=== PATIENT | male | born 1955 | race Caucasian/White ===

== ENCOUNTER 2022-01-07 10:02 | Outpatient (CLI) | payer MEDICARE, SELFPAY ==
[2022-01-07 10:30] LABS: Abs Immature Grans 0.01 10^3/uL (0.0-0.06); Absolute Basophil Count 0.02 10^3/uL (0.0-0.2); Absolute Eosinophil Count 0.04 10^3/uL (0.0-0.7); Absolute Lymphocyte Count 0.75 10^3/uL (1.2-3.4); Absolute Monocyte Count 0.64 10^3/uL (0.1-0.8); Absolute Neutrophil Count 2.28 10^3/uL (1.2-6.7); Basophils % 0.5; Eosinophils % 1.1; HCT 34.2 % (40.0-50.0); HGB 11.7 g/dL (13.5-17.5); Immature Grans % 0.3; Lymphocytes % 20.1; MCH 31.6 pg (27.0-33.0); MCHC 34.2 % (32.0-36.0); MCV 92 fL (80-95); MPV 9.7 fL (8.0-11.0); Monocytes % 17.1; Neutrophils % 60.9; Platelet Count 239 10^3/uL (130-400); RDW 14.4 % (11.8-14.1); RDW-SD 48.3 fL; WBC 3.74 10^3/uL (4.4-10.8)
[2022-01-07 10:45] LABS: ALT 45 U/L (16-63); AST 48 U/L (15-37); Albumin 3.2 g/dL (3.4-5.0); Alkaline Phosphatase 95 U/L (46-116); Anion Gap 7.9 mmol/L (3-11); BUN 13 mg/dL (7-18); Bilirubin, Total 0.7 mg/dL (0.2-1.0); CO2 32.1 mmol/L (21.0-32.0); CREATININE 0.8 mg/dL (0.70-1.30); Calcium 8.8 mg/dL (8.5-10.1); Chloride 96 mmol/L (98-107); FREE T4 1.91 ng/dL (0.76-1.46); Glucose 154 mg/dL (74-106); Magnesium 2.1 mg/dL (1.8-2.4); Sodium 136 mmol/L (136-145); TSH 1.09 uIU/mL (0.36-3.74); Total Protein 7.2 g/dL (6.4-8.2)
[2022-01-07 11:03] LABS: Potassium 2.8 mmol/L (3.5-5.1)
== END 2022-01-07 10:03 | disposition home or self-care (01) ==
LOC: LBO 10:03
PROVIDERS: PCP Physician Assistant Medical; Visit Provider Internal Medicine Medical Oncology
DX: C34.11 Malignant neoplasm of upper lobe, right bronchus or lung (principal); C79.31 Secondary malignant neoplasm of brain; C78.7 Secondary malignant neoplasm of liver and intrahepatic bile duct; Z79.899 Other long term (current) drug therapy
CPT/HCPCS: 36415; 80053; 83735; 84439; 84443; 85025

== ENCOUNTER 2022-01-09 09:15 | Outpatient (REF) | payer MEDICARE, SELFPAY ==
[2022-01-09 09:49] LABS: ALT 44 U/L (16-63); AST 33 U/L (15-37); Albumin 2.7 g/dL (3.4-5.0); Alkaline Phosphatase 86 U/L (46-116); Anion Gap 3.4 mmol/L (3-11); BUN 18 mg/dL (7-18); Bilirubin, Total 0.2 mg/dL (0.2-1.0); CO2 32.6 mmol/L (21.0-32.0); CREATININE 0.5 mg/dL (0.70-1.30); Calcium 8.7 mg/dL (8.5-10.1); Chloride 105 mmol/L (98-107); Glucose 84 mg/dL (74-106); Potassium 3.9 mmol/L (3.5-5.1); Sodium 141 mmol/L (136-145); Total Protein 6.1 g/dL (6.4-8.2)
== END 2022-01-09 09:16 | disposition home or self-care (01) ==
LOC: LBN 09:15
PROVIDERS: PCP Physician Assistant Medical; Visit Provider Internal Medicine Medical Oncology
DX: C34.11 Malignant neoplasm of upper lobe, right bronchus or lung (principal)
CPT/HCPCS: 80053

== ENCOUNTER 2022-01-28 09:45 | Outpatient (REF) | payer MEDICARE, SELFPAY ==
[2022-01-28 09:52] LABS: Abs Immature Grans 0.03 10^3/uL (0.0-0.06); Absolute Basophil Count 0.04 10^3/uL (0.0-0.2); Absolute Eosinophil Count 0.04 10^3/uL (0.0-0.7); Absolute Monocyte Count 0.53 10^3/uL (0.1-0.8); Basophils % 0.9; Eosinophils % 0.9; HGB 10.1 g/dL (13.5-17.5); Immature Grans % 0.7; Lymphocytes % 21.1; MCH 30.8 pg (27.0-33.0); MCHC 32.6 % (32.0-36.0); MCV 95 fL (80-95); MPV 10.6 fL (8.0-11.0); Monocytes % 12.4; Platelet Count 248 10^3/uL (130-400); RBC 3.28 10^6/uL (4.36-5.78); RDW 15.5 % (11.8-14.1); RDW-SD 53.4 fL; WBC 4.26 10^3/uL (4.4-10.8)
[2022-01-28 09:53] LABS: Absolute Neutrophil Count 2.73 10^3/uL (1.2-6.7)
[2022-01-28 10:20] LABS: ALT 43 U/L (16-63); AST 44 U/L (15-37); Alkaline Phosphatase 111 U/L (46-116); Anion Gap 4.5 mmol/L (3-11); BUN 17 mg/dL (7-18); Bilirubin, Total 0.5 mg/dL (0.2-1.0); CO2 36.5 mmol/L (21.0-32.0); CREATININE 0.7 mg/dL (0.70-1.30); Calcium 8.7 mg/dL (8.5-10.1); Chloride 100 mmol/L (98-107); Estimated GFR 100.99 (mL/min/1.73m2); Glucose 147 mg/dL (74-106); Potassium 3.1 mmol/L (3.5-5.1); Sodium 141 mmol/L (136-145); TSH 0.29 uIU/mL (0.36-3.74); Total Protein 6.4 g/dL (6.4-8.2)
== END 2022-01-28 09:46 | disposition home or self-care (01) ==
LOC: LBN 09:45
PROVIDERS: Internal Medicine Medical Oncology; PCP Physician Assistant Medical; Visit Provider Surgery
DX: C34.11 Malignant neoplasm of upper lobe, right bronchus or lung (principal); C79.31 Secondary malignant neoplasm of brain; C78.7 Secondary malignant neoplasm of liver and intrahepatic bile duct; Z79.899 Other long term (current) drug therapy
CPT/HCPCS: 80053; 84439; 84443; 85025

== ENCOUNTER 2022-02-15 02:10 | Outpatient (CLI) | payer MEDICARE, SELFPAY ==
[2022-02-15 14:38] LABS: Absolute Basophil Count 0.04 10^3/uL (0.0-0.2); Absolute Eosinophil Count 0.09 10^3/uL (0.0-0.7); Absolute Monocyte Count 0.59 10^3/uL (0.1-0.8); Absolute Neutrophil Count 0.91 10^3/uL (1.2-6.7); Basophils % 1.4; Eosinophils % 3.2; HCT 34.7 % (40.0-50.0); HGB 11.3 g/dL (13.5-17.5); Lymphocytes % 42.4; MCH 31.4 pg (27.0-33.0); MCHC 32.6 % (32.0-36.0); MCV 96 fL (80-95); Monocytes % 20.8; Neutrophils % 32.2; Platelet Count 189 10^3/uL (130-400); RDW 16.8 % (11.8-14.1); RDW-SD 58.2 fL; WBC 2.83 10^3/uL (4.4-10.8)
[2022-02-15 14:55] LABS: Diff Comment Diff Reviewed; RBC Morphology Normal
[2022-02-15 15:55] LABS: ALT 40 U/L (16-63); AST 40 U/L (15-37); Albumin 3.3 g/dL (3.4-5.0); Alkaline Phosphatase 114 U/L (46-116); Bilirubin, Total 0.4 mg/dL (0.2-1.0); CREATININE 0.7 mg/dL (0.70-1.30); Calcium 9.5 mg/dL (8.5-10.1); Chloride 102 mmol/L (98-107); Estimated GFR 100.99 (mL/min/1.73m2); FREE T4 1.26 ng/dL (0.76-1.46); Glucose 133 mg/dL (74-106); Magnesium 2.2 mg/dL (1.8-2.4); Potassium 4.2 mmol/L (3.5-5.1); Sodium 139 mmol/L (136-145); TSH 0.32 uIU/mL (0.36-3.74)
[2022-02-15 17:27] LABS: BUN 15 mg/dL (7-18)
== END 2022-02-15 02:11 | disposition home or self-care (01) ==
LOC: LBO 02:10
PROVIDERS: PCP Physician Assistant Medical; Visit Provider Internal Medicine Medical Oncology
DX: Z79.899 Other long term (current) drug therapy (principal); C34.11 Malignant neoplasm of upper lobe, right bronchus or lung
CPT/HCPCS: 36415; 80053; 83735; 84439; 84443; 85025

== ENCOUNTER 2022-02-18 10:33 | Outpatient (CLI) | payer MEDICARE, SELFPAY ==
[2022-02-18 08:58] LABS: Abs Immature Grans 0.02 10^3/uL (0.0-0.06); Absolute Basophil Count 0.03 10^3/uL (0.0-0.2); Absolute Eosinophil Count 0.09 10^3/uL (0.0-0.7); Absolute Lymphocyte Count 0.93 10^3/uL (1.2-3.4); Absolute Monocyte Count 0.63 10^3/uL (0.1-0.8); Absolute Neutrophil Count 1.59 10^3/uL (1.2-6.7); Basophils % 0.9; Eosinophils % 2.7; HCT 35.1 % (40.0-50.0); HGB 11.1 g/dL (13.5-17.5); Immature Grans % 0.6; Lymphocytes % 28.3; MCHC 31.6 % (32.0-36.0); MCV 98 fL (80-95); MPV 10.7 fL (8.0-11.0); Monocytes % 19.1; Neutrophils % 48.4; Platelet Count 180 10^3/uL (130-400); RBC 3.58 10^6/uL (4.36-5.78); RDW 17.2 % (11.8-14.1); RDW-SD 60.7 fL; WBC 3.29 10^3/uL (4.4-10.8)
[2022-02-18 09:31] LABS: ALT 43 U/L (16-63); AST 50 U/L (15-37); Albumin 3.6 g/dL (3.4-5.0); Alkaline Phosphatase 107 U/L (46-116); Anion Gap 5.2 mmol/L (3-11); BUN 14 mg/dL (7-18); Bilirubin, Total 0.6 mg/dL (0.2-1.0); CO2 31.8 mmol/L (21.0-32.0); CREATININE 0.8 mg/dL (0.70-1.30); Calcium 9.4 mg/dL (8.5-10.1); Chloride 103 mmol/L (98-107); FREE T4 1.32 ng/dL (0.76-1.46); Glucose 98 mg/dL (74-106); Magnesium 2.4 mg/dL (1.8-2.4); Potassium 3.9 mmol/L (3.5-5.1); Sodium 140 mmol/L (136-145); Total Protein 7.2 g/dL (6.4-8.2)
--- OUTSIDE RECORDS SUMMARY | 2022-02-18 10:38 | XMS_ITS | Encounter Summary ---
:1955 Author Organization [facility] [place] [address] Care Team Providers Name Role Phone Chioma Huynh Primary Care Provider Encounter Details Date Type Department Care Team Description 01/30/2022 Notes Only [facility] OFFICE OF CARE [address] [place], [place] [id number] [phone] Social History Tobacco Use Types Packs/Day Years Used Date Current Every Day Smoker 0.5 Smokeless Tobacco: Never Used Financial Resource Strain Answer Date Recorded How hard is it for you to pay for the very basics like Not v brittney hard 02/08/2022 food, housing, medical care, and heating? Food Insecurity Answer Date Recorded Within the past 12 months, you worried that your food would Never true 02/08/2022 run out before you got money to buy more. Within the past 12 months, the food you bought just didn't N ever true 02/08/2022 last and you didn't have money to get more. Transportation Needs Answer Date Recorded In the past 12 months, has lack of transportation kept you f rom No 02/08/2022 medical appointments or from getting medications? In the past 12 months, has lack of transportation kept you f rom No 02/08/2022 meetings, work, or getting things needed for daily living? Housing Stability Answer Date Recorded In the last 12 months, was there a time when you were not ab le No 02/08/2022 to pay the mortgage or rent on time? In the last 12 months, how many places have you lived? 1 02/08/2022 In the last 12 months, was there a time when you did not hav e a No 02/08/[address] or slept in a half-way (including now)? Sex Assigned at Date Recorded Male 12/12/2021 7:38 PM EDT documented as of this encounter Progress Notes Mercy Nixon MSW - 01/30/2022 11:52 AM EDT Follow up with pt during his infusion visit today. Pt indicated he was doing firly well day to day at home. He has good support. No issues with transportation. He did not identify any new needs. Offered support. Reminded pt of [employer] availability and contact information. Will continue to follow as indicated. Brief assessment Supportive Counseling documented in this encounter Plan of Treatment Upcoming Encounters Date Type Specialty Care Team Description 02/19/2022 Infusion Hematology and Oncology 02/20/2022 Infusion Hematology and Oncology documented as of this encounter Visit Diagnoses Not on filedocumented in this encounter Care Teams Sintering Plant Supervisor Relationship Specialty Start Date End Date Chioma Huynh PA PCP - General 04/10/[address] [place] [id number] documented as of this encounter
--- OUTSIDE RECORDS SUMMARY | 2022-02-18 10:38 | XMS_ITS | Encounter Summary ---
:1955 Author Organization [facility] [address] Care Team Providers Name Role Phone Chioma Huynh Primary Care Provider Encounter Details Date Type Department Care Team Description 02/18/2022 Notes Only [facility] OFFICE OF CARE [address] [place], [place] [id number] [phone] Social History Tobacco Use Types Packs/Day Years Used Date Former Smoker 1 50 Smokeless Tobacco: Never Used Alcohol Use Standard Drinks/Week Comments Not Currently 0 (1 standard drink = 0.6 oz pure alcoho l) Financial Resource Strain Answer Date Recorded How [...] place to sleep or slept in a jail (including now)? Sex Assigned at Date Recorded Male 12/12/2021 7:38 PM EDT documented as of this encounter Progress Notes Mercy Nixon MSW - 02/18/2022 10:05 AM EDT Follow up with Cdoey during his infusion visit today. He indicated he is doing fairly well overall. He is managing day to day at home. He misses work and hopes to return one day. His is working and they are managing their financial obligations. Inquired how is coping an dhe did indicate she is worried about things. Offered support. Codey did not identify any new needs today. Reminded him of REMOTE PILOT OPERATOR availability and contact information. Will continue to follow for support and resources. Brief assessment Supportive Counseling documented in this encounter Plan of Treatment Upcoming Encounters Date Type Specialty Care Team Description 02/19/2022 Infusion Hematology and Oncology 02/20/2022 Infusion Hematology and Oncology documented as of this encounter Visit Diagnoses Not on filedocumented in this encounter Care Teams Senior Energy Market Coordinator Relationship Specialty Start Date End Date Chioma Huynh PA PCP - General 04/10/[address] [place] [id number] documented as of this encounter
--- OUTSIDE RECORDS SUMMARY | 2022-02-18 10:38 | XMS_ITS | Encounter Summary ---
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 Neoplasm related pain Medication management Jem Gannon MD [facility] Hem Onc Office Procedures TC PALONOSETRON HCL, 25MCG, INJECTION (ALOXI) TC FOSAPREPITANT, 1MG, INJECTION (EMEND) TC CARBOPLATIN, 50MG, INJECTION (PARAPLATIN) TC ETOPOSIDE, 10MG, INJECTION (VEPESID) J2469 Aloxi 0.25 MG - NR J1453 EMEND [address] J9022 atezolizumab (Tecentri q) 1200 MG J9045 CARBOplatin (Paraplatin) 353 MG J9181 ETOPOSIDE - VEPESID 130 MG HEMATOLOGY/[place] [phone] Fax: Referral ID Status Reason Start Date Expiration Date Visits V isits Requested Authorized [id number] Authorized 12/17/2021 12/13/2022 99 99 Encounter Details Date Type Department Care Team Description 01/29/2022 Infusion Hematology Oncology at [facility] dication [facility]; [facility] Primary malignant neoplasm o f right upper lobe of lung; [address] Neoplasm related pain; [place], [place] [phone] Secondary malignant neoplasm of liver [phone] Social History Tobacco Use Types Packs/Day Years [...] place to sleep or slept in a [facility] (including now)? Sex Assigned at Date Recorded Male 12/12/2021 7:38 PM EDT documented as of this encounter Last Filed Vital Signs Vital Sign Reading Time Taken Comments Blood Pressure 127/56 01/29/2022 11:23 AM EDT Pulse 71 01/29/2022 11:23 AM EDT Temperature 36.7 ??C (98.1 ??F) 01/29/2022 11:23 AM EDT Respiratory Rate 16 01/29/2022 11:23 AM EDT Oxygen Saturation 100% 01/29/2022 11:23 AM EDT Inhaled Oxygen Concentration - - Weight 54.6 kg (120 lb 6.4 oz) 01/29/2022 11:23 AM EDT Height 172 cm (5' 7.72) 01/29/2022 11:23 AM EDT Body Mass Index 18.46 01/29/2022 11:23 AM EDT documented in this encounter Progress Notes German Barillas RN - 01/29/2022 11:00 AM EDT INFUSION THERAPY ADMINISTRATION NOTES DIAGNOSIS: SCLC CYCLE #3: Day 2 REASON FOR VISIT: Etoposide SUBJECTIVE: Codey offers no complaints today and is ready for treatment. OBJECTIVE: VSS, weight stable LAB DATA: Labs done 01/28/[address] [facility] reviewed and WNL for treatment. IV ACCESS: Left arm PIV Pre administration: Chemotherapy orders independently verified for drug name, route, and dosage per patient's height, weight and BSA by German Barillas RN and Staff Pharmacist(s). REACTIONS (DESCRIPTION, TIME, INTERVENTION AND EFFECTIVENESS) none ASSESSMENT: Codey was awake, alert and tolerated treatment well. PIV flushed with NS and left in place for treatment tomorrow. PLAN: Return to clinic tomorrow for C3D3. 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 1.58 m2 Treatment Plan BSA from Recorded weight), Intravenous, ONCE, 1 dose, On Fri01/29/22 at 1200, Administer over 120 Minutes, Warning Vesicant/Irritant Medication sodium chloride 0.9% infusion New Bag 01/29/2022 11:30 AM EDT 200 mL/hr 200 mL/hr 200 mL/hr, Intravenous, CONTINUOUS, Starting on Fri01/29/22 at 1100, Until Fri01/29/22 at 1626 documented in this encounter Care Teams Automotive Upholsterer Relationship Specialty Start Date End Date Chioma Huynh PA PCP - General 04/10/[address] [place] [id number] documented as of this encounter
--- OUTSIDE RECORDS SUMMARY | 2022-02-18 10:38 | XMS_ITS | Encounter Summary ---
:1955 Author Organization [facility] [place] [address] Care Team Providers Name Role Phone Chioma Huynh Primary Care Provider Encounter Details Date Type Department Care Team Description 02/18/2022 [facility] [address] HEMATOLOGY AND ONCOLOGY [id number] [place] [address] [phone] (Wo rk) Social History Tobacco Use Types Packs/Day Years [...] place to sleep or slept in a prison (including now)? Sex Assigned at Date Recorded Male 12/12/2021 7:38 PM EDT documented as of this encounter Plan of Treatment Upcoming Encounters Date Type Specialty Care Team Description 02/19/2022 Infusion Hematology and Oncology 02/20/2022 Infusion Hematology and Oncology documented as of this encounter Visit Diagnoses Not on filedocumented in this encounter Care Teams Front Desk Associate Relationship Specialty Start Date End Date Chioma Huynh PA PCP - General 04/10/[address] [place] [phone] documented as of this encounter
--- OUTSIDE RECORDS SUMMARY | 2022-02-18 10:38 | XMS_ITS | Encounter Summary ---
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 Neoplasm related pain Medication management Jem Gannon MD [facility] Hem Onc Office Procedures TC PALONOSETRON HCL, 25MCG, INJECTION (ALOXI) TC FOSAPREPITANT, 1MG, INJECTION (EMEND) TC CARBOPLATIN, 50MG, INJECTION (PARAPLATIN) TC ETOPOSIDE, 10MG, INJECTION (VEPESID) J2469 Aloxi 0.25 MG - NR J1453 EMEND [address] J9022 atezolizumab (Tecentri q) 1200 MG J9045 CARBOplatin (Paraplatin) 353 MG J9181 ETOPOSIDE - VEPESID 130 MG HEMATOLOGY/[place] [phone] Fax: Referral ID Status Reason Start Date Expiration Date Visits V isits Requested Authorized [id number] Authorized 12/17/2021 12/13/2022 99 99 Encounter Details Date Type Department Care Team Description 01/30/2022 Infusion Hematology Oncology at [facility] dication management; [facility] Primary malignant neoplasm o f right upper lobe of lung; [address] Neoplasm related pain; [place], [place] [phone] Secondary malignant neoplasm of liver [phone] Social History Tobacco Use Types Packs/Day Years [...] place to sleep or slept in a custodial (including now)? Sex Assigned at Date Recorded Male 12/12/2021 7:38 PM EDT documented as of this encounter Last Filed Vital Signs Vital Sign Reading Time Taken Comments Blood Pressure 126/54 01/30/2022 10:42 AM EDT Pulse 58 01/30/2022 10:42 AM EDT Temperature 36.4 ??C (97.5 ??F) 01/30/2022 10:42 AM EDT Respiratory Rate 20 01/30/2022 10:42 AM EDT Oxygen Saturation 100% 01/30/2022 10:42 AM EDT Inhaled Oxygen Concentration - - Weight 55.9 kg (123 lb 3.2 oz) 01/30/2022 10:42 AM EDT Height 172 cm (5' 7.72) 01/30/2022 10:42 AM EDT Body Mass Index 18.89 01/30/2022 10:42 AM EDT documented in this encounter Progress Notes Olivia White RN - 01/30/2022 11:00 AM EDT INFUSION THERAPY ADMINISTRATION NOTES DIAGNOSIS: SCLC CYCLE #3: Day 3 REASON FOR VISIT: Etoposide SUBJECTIVE: Codey offers no complaints today and is ready for treatment. OBJECTIVE: Patient Vitals for the past 24 hrs: Temp Pulse Resp BP SpO2 01/30/22 1042 36.4 ??C (97.5 ??F) 58 20 126/54 100 % LAB DATA: [facility]/22 at [facility] 4.[facility], HGB 10.1, HCT 31.0,PLT 248, ANC 2.73, BUN 17, Cr 0.7 IV ACCESS: Left arm PIV Pre administration: Chemotherapy orders independently verified for drug name, route, and dosage per patient's height, weight and BSA by Olivia White RN and Staff Pharmacist(s). REACTIONS (DESCRIPTION, TIME, INTERVENTION AND EFFECTIVENESS) none ASSESSMENT: Codey was awake, alert and tolerated treatment well. PLAN: Return to clinic as scheduled. documented in this encounter Plan of Treatment [...] Rate Site dexAMETHasone (Decadron) tablet 10 Given 01/30/2022 10:48 AM EDT 10 mg mg 10 mg, Oral, ONCE, 1 dose, On Fri01/30/22 at 1100, Administer prior to chemotherapy, Routine etoposide (Vepesid) 126.5 mg in New Bag 01/30/2022 10:56 AM ED T 126.5 mg 506.3 mL/hr sodium chloride 0.9% Non-PVC 506.33 mL infusion 126.5 mg (rounded from 126.4 mg = 80 mg/m2/dose ? 1.58 m2 Treatment Plan BSA from Recorded weight), Intravenous, ONCE, 1 dose, On Fri01/30/22 at 1200, Administer over 60 Minutes, Warning Vesicant/Irritant Medication sodium chloride 0.9% infusion New Bag 01/30/2022 10:48 AM EDT 200 mL/hr 200 mL/hr 200 mL/hr, Intravenous, CONTINUOUS, Starting on Fri01/30/22 at 1100, Until Fri01/30/22 at 1420 documented in this encounter Care Teams Database Administrator Relationship Specialty Start Date End Date Chioma Huynh PA PCP - General 04/10/[address] [phone] documented as of this encounter
--- OUTSIDE RECORDS SUMMARY | 2022-02-18 10:38 | XMS_ITS | Encounter Summary ---
:1955 Author Organization [facility] [place] [address] Care Team Providers Name Role Phone Chioma Huynh Primary Care Provider Reason for Visit Consultation (Routine) - Closed Specialty Diagnoses / Procedures Referred By Contact Refer red To Contact Radiation Oncology Diagnoses 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 Brain metastases Jem Gannon MD [facility] Rad Onc Treatment [address] HEMATOLOGY/ONCOLOGY [place], [place] DEPT [address] [place] [address] Referral ID Status Reason Start Date Expiration Date Visits V isits Requested Authorized [id number] Closed Consult, 01/28/2022 01/28/2023 1 1 Test & Treat Encounter Details Date Type Department Care Team Description 02/08/2022 Office Visit Radiation Oncology at [facility] malignant [facility] neoplasm of right [address] [place] [address] DR upper lobe of lung [place], [place] RADIATION ONCOL OGY [address] [place], [place] [phone] (Wo rk) Social History Tobacco Use Types Packs/Day Years Used Date Current Every Day Smoker 1 50 Smokeless Tobacco: Never Used [...] place to sleep or slept in a detention (including now)? Sex Assigned at Date Recorded Male 12/12/2021 7:38 PM EDT documented as of this encounter Last Filed Vital Signs Vital Sign Reading Time Taken Comments Blood Pressure 149/71 02/08/2022 1:00 PM EDT Pulse 74 02/08/2022 1:00 PM EDT Temperature 37 ??C (98.6 ??F) 02/08/2022 1:00 PM EDT Respiratory Rate 20 02/08/2022 1:00 PM EDT Oxygen Saturation 100% 02/08/2022 1:00 PM EDT Inhaled Oxygen Concentration - - Weight 54.3 kg (119 lb 12.8 oz) 02/08/2022 1:00 PM EDT Height - - Body Mass Index 18.37 01/30/2022 10:42 AM EDT documented in this encounter Progress Notes Melinda Castillo MD - 02/08/2022 2:00 PM EDT Images from the original note were not included. Radiation Oncology Consult Note Darryl John MD, MS [facility] PATIENT IDENTIFICATION: PATIENT NAME: Codey Lucio DATE OF : 1955 REFERRING PROVIDER: Jem Gannon MD PRIMARY CARE PROVIDER: KURT Murray REASON FOR CONSULTATION: Cancer Staging Primary malignant neoplasm of right upper lobe of lung Staging form: Lung, AJCC 8th Edition - Clinical: Stage IVB (cT2a, cN2, pM1c) - Signed by Jem Gannon MD on 12/08/2021 DATE OF SERVICE: 02/08/2022 HISTORY OF PRESENT ILLNESS: Codey Lucio is a 66 y.o. male with PMH of CAD s/p CABG 03/08, PVD degenerative disc disease of L5-S1 spine, GERD, asbestos exposure, COPD with a 50+ pk year smoking hx diagnosed with extensive stage small lung cancer with hepatic and brain metastases. Codey presented with progressive abdominal pain and was noted to have an enlarge liver at his PCP's office promoting an ED evaluation. CT abdomen on 11/01/21 showed multiple masses in the liver w/ largest being 9.6x6.8x8.8cm. 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 CT head on 11/23/[address] chest on 12/06/21 showed a new right upper lobes suprahilar mass, multiple new sub 5mm bilateral pulmonary nodules, new large right and left hepatic lesions/metastsis, large left adrenal mass/metastasis, multiple low-attenuation lesions within the pancreas, periaortic lymphadenopathy, and prominent p recardiac LN concerning for metastasis. MRI brain on 12/06/21 showed numerous enhancing metastases within the supra and infratentorial compartments, though most noted to be sub-centimeter (largest being 1.7cm in the left occipital lobe metastasis). Codey was started on chemotherapy on 12/17/21 (carbo/etop/atezo). Re-staging CT chest and MRI brain showed good response on 01/17/22 and 01/24/22, respectively. Per Dr. Gannon's note from 01/28/22, plan for an additional 2 cycles of chemotherapy (including cycle 3given on 01/28-01/30) and maintenance immunotherapy. Re-staging scans planned for after C4. Codey comes today to discuss whole brain radiation. REVIEW OF SYSTEMS: On further questioning, he reports significant fatigue. Feels eating and drinking okay. Last fall 3-4 months ago- has dizziness with standing or turns to fast. He report dizziness since initial diagnosis. Codey reports nausea daily- uses compazine with good effect. Wheezing and coughing w/ green sputum production- new within the last couple weeks. Notes increased smoking since beginning of January. Denies fevers or chills. Currently on MS-contin 30mg BID for pain control- no pain currently in abdomen. Managed by palliative care. Has oxycodone prn, but not currently using. Notes BM Q2 days, formed and not hard. REVIEW OF SYSTEMS 02/08/2022 Constitutional Weight loss, Weakness, Fatigue, lack of energy, Pain Ear / nose / throat / mouth Hearing difficulty, Change in the way food tastes Eyes Blurry vision Respiratory Wheezing, Cough, Shortness of breath Cardiovascular None of the above Gastrointestinal Nausea, vomiting, Heartburn, indigestion, Constipation, Appetite problems Skin, hair Dry skin, Itching, Sweats, Loss of hair Musculoskeletal Back pain, Joint pain, Unable to walk/difficulty walking Neurological Balance difficulty, dizziness, Headaches, Muscular weakness Hematologic / Lymphatic Easy bruising or bleeding, Night sweats Genitourinary Frequent urination A comprehensive 14 point review of systems was conducted with this patient and is otherwise negativeexcept as documented above. PAST MEDICAL AND SURGICAL HISTORY: Past Medical History: Diagnosis Date ??? HTN (hypertension) ??? Peripheral vascular disease Past Surgical History: Procedure Laterality Date ??? SUBCLAVIAN BYPASS GRAFT Bilateral 04/2021 CONTRAINDICATIONS TO RADIATION THERAPY: None Prior Radiation to this Site: No Active Connective Tissue Disease (Lupus or Scleroderma) No MEDICATIONS AND ALLERGIES: Medications 02/08/22 1350 Medication Sig Taking? atorvastatin (Lipitor) 80 mg Tablet Once Daily Yes senna (Senokot) 8.6 mg Tablet Take 1 tablet by mouth nightly. Yes cholecalciferol, vitamin D3, (VITAMIN D3 ORAL) Take 2,500 mcg by mouth daily. Yes cyanocobalamin, Vitamin B-12, 1,000 mcg/mL Solution Inject 1,000 mcg as directed every 30 days. Yes morphine CR (Ms Contin) 30 mg Tablet Sustained Release Take 1 tablet by mouth 2 times daily. Yes potassium chloride ER (K-Dur/Klor-Con) 20 mEq Tab Sust.Rel. Particle/Crystal Take 1 tablet by mouth 2 times daily. Yes Xarelto 2.5 mg Tablet Take 2.5 mg by mouth 2 times daily. Yes lisinopriL (Zestril) 40 mg Tablet Take 40 mg by mouth daily. Yes Trelegy Ellipta 200-62.5-25 mcg Yes prochlorperazine (Compazine) 10 mg Tablet Take 1 tablet by mouth every 6 hours as needed for Nausea.Yes nicotine (Nicoderm CQ) 21 mg/24 hr Patch 24 hr Change 1 patch on the skin daily. Patient taking differently: Change 1 patch on the skin daily. Used prn for infusions Yes citalopram (CELEXA) 20 mg Tablet Take 20 mg by mouth daily. Yes metoprolol tartrate (LOPRESSOR) 25 mg tablet Yes nitroGLYcerin (Nitrostat) 0.4 mg Tablet, Sublingual Place 0.4 mg under the tongue every 5 minutes asneeded for Chest pain. oxyCODONE (Roxicodone) 5 mg Tablet Take 1 tablet by mouth every 6 hours as needed for Pain. Patient not taking: No sig reported albuterol (VENTOLIN HFA) 90 mcg/Actuation inhaler Allergies Allergen Reactions ??? Naproxen Hives ??? 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 Brain Cancer Mother ??? Hypertension Father ??? Angioedema Father ??? Cancer Maternal Grandmother PHYSICAL EXAM BP 149/71 (Patient Position: Sitting) Pulse 74 Temp 37 ??C (98.6 ??F) Resp 20 Wt 54.3 kg (119 lb 12.8 oz) SpO2 100% BMI 18.37 kg/m?? General: alert, appears stated age, and in no distress sitting in exam room with at side Neuro: no deficits on general exam, gait stable. Alert/oriented x 3. TODAY'S PERFORMANCE STATUS: KPS Score ECOG Grade Definition 90-100 0 Fully active, able to carry on all pre-disease performance without restriction 70-80 1 Restricted in physically strenuous activity but ambulatory and able to carry out work of a light or sedentary nature, e.g., light house work, office work 50-60 2 Ambulatory and capable of all selfcare but unable to carry out any work activities; up and about more than 50% of waking hours xx 30-40 3 Capable of only limited selfcare; confined to bed or chair more than 50% of waking hours 10-20 4 Completely disabled; cannot carry on any selfcare; totally confined to bed or chair ASSESSMENT / PLAN: Codey Lucio is a 66 y.o. male with extensive stage small cell lung cancer, who presented with brain and extra-cranial metastases s/p 3 cycle of carbo/etop/atezo (planned total 4 cycle) with response noted after [address] chest and MRI brain. Codey will have C4 of chemotherapy prior to re-staging scans. Scans at the beginning of January showed a good response and we are hopeful to see continued improvement on up-coming scans. In regards to the brain, as discussed above, final recommendations will be made following repeat MRIbrain. In the setting of continued good response, we offer whole brain radiotherapy to help control brain disease. We recommend 30Gy in 10fx. Given there is no involvement of the hippocampi at this time, we will likely pursue HOLLIDAY-WBRT.. We additionally discussed role of memantine to help with memory and cognitive function. In regards to the chest, depending on PET scan, there may be a role for consolidative thoracic radiation. In this setting, we would given 30Gy in 10fx. Up-coming imaging will help guide decision making. We discussed: - Current staging in regards to chemotherapy - Recommendations depending largely on up-coming restaging scans - HOLLIDAY-WBRT- including number of treatment, cognitive function changes (role for hippocampal avoidanceand mematine) and other side effects including, but not limited to, fatigue, headache, n/v, skin erythema, and hair loss - Potential role for consolidative XRT to chest (side effects including, but not limited to, fatigue, cough, SOB, difficulty swallowing) - Smoking cessation and the importance of not smoking during XRT Codey is agreeable to plan. Codey signed consent for WBRT and thoracic XRT, though he is aware our recommendations may change depending on upcoming restaging scans. In regards to smoking cessation, Linda is trying hard to quit but continues to have trouble, he is agreeable to trying the nicotine inhaler (which was sent to his pharmacy). Additionally we have reached out to Dr. Gannon regarding a PET/CT in addition to upcoming MRI brain, to help determine extra-thoracic disease. Dr. Gannon is agreeable to the change. All of Codey's questions were answered to his fullest satisfaction, and we have provided him with our contact information should any further questions or concerns arise. SUMMARY OF PLAN / RECOMMENDATION: 1. Intent of therapy: palliative 2. Clinical Trial Availability: No 3. F/u restaging scans following C4 of chemotherapy 4. Tentative plan for HOLLIDAY-WBRT and consolidative thoracic radiation, depending on restaging scans 5. Nicotine inhaler Melinda Castillo MD PGY3 Attending MD Attestation: I have seen the patient in person, reviewed and edited the resident's above history and I agree withthe details as written. The assessment and plan were formulated in discussion with me and I agree with them as documented. In brief, Codey Lucio is 66 year old man with Stage IV small cell lung cancer. He is nearly complete with first line chemotherapy with restaging scans currently pending. We discussed consolidative RT to the whole brain and lung, assuming continued good systemic response. We will follow with Dr Gannon accordingly after restaging is complete. At least 60 minutes were spent in providing care to this patient today as reflected by the followingactivities: - review of his medical record in the chart, including interpretation of imaging, laboratory and pathologic studies referenced above - discussion of the above with the patient as part of shared medical decision making - documenting the outcome of today's visit as above Darryl John MD, MS Clinical Systems Analyst Radiation Oncology Beverly Granda RN - 02/08/2022 2:00 PM EDT RADIATION ONCOLOGY NURSING INITIAL NURSING ASSESSMENT IDENTIFICATION: Codey Lucio is a 66 y.o. year-old male with Lung/Liver/Brain CA PRESENTING SYMPTOMS/CHIEF COMPLAINT: REVIEW OF SYSTEMS: Review of Systems - Oncology REVIEW OF SYSTEMS 02/08/2022 Constitutional Weight loss, Weakness, Fatigue, lack of energy, Pain Ear / nose / throat / mouth Hearing difficulty, Change in the way food tastes Eyes Blurry vision Respiratory Wheezing, Cough, Shortness of breath Cardiovascular None of the above Gastrointestinal Nausea, vomiting, Heartburn, indigestion, Constipation, Appetite problems Skin, hair Dry skin, Itching, Sweats, Loss of hair Musculoskeletal Back pain, Joint pain, Unable to walk/difficulty walking Neurological Balance difficulty, dizziness, Headaches, Muscular weakness Hematologic / Lymphatic Easy bruising or bleeding, Night sweats Genitourinary Frequent urination Heartburn every few days infrequent taking tums. Cough is bringing up green phlegm recently last week. Dizziness almost daily when standing. Dizziness from sitting to standing or from turning to quickly. IN THE PAST 12 MONTHS HAVE YOU: Fallen more than one time? Yes Injured yourself as result of the fall? Yes Experienced difficulty with walking/problems with balance? Yes Do you use any assistive devices? No Any history of collagen vascular diseases:No Any Implanted Devices/Hardware: No If yes please put alert in ARIA patient summary Prior Radiotherapy: No Prior Chemotherapy: Yes Prior Hormone Therapy: No Other: Patient denies history of Scleroderma and Lupus LEARNING ASSESSMENT REVIEWED: Yes ADVANCED DIRECTIVE: Not discussed today. PAIN ASSESSMENT: [0] out of 10 eD-H Adult PCS Flow Sheet if 4 or above SOCIAL ASSESSMENT: See EDH social assessment information entered. Support Systems: Kasandra () Barriers to treatment: Insurance Referrals/Interventions: antisqueak worker visit on per routine. RADIATION SPECIFIC TEACHING:Will provide the following information on day [facility] Radiation Therapy and You Site specific teaching : Other: PLAN: Per Answers for HPI/ROS submitted by the patient on 02/08/2022 Distress: 5 documented in this encounter Plan of Treatment Upcoming Encounters Date Type Specialty Care Team Description 02/19/2022 Infusion Hematology and Oncology 02/20/2022 Infusion Hematology and Oncology documented as of this encounter Visit Diagnoses Diagnosis Primary malignant neoplasm of right uppe r lobe of lung Malignant neoplasm of upper lobe, bronch us or lung documented in this encounter Care Teams Product Development Technician Relationship Specialty Start Date End Date Chioma Huynh PA PCP - General 04/10/[address] [place] [id number] documented as of this encounter
--- OUTSIDE RECORDS SUMMARY | 2022-02-18 10:38 | XMS_ITS | Clinical Summary ---
:1955 Author Organization [facility] [place] [address] Care Team Providers Name Role Phone Chioma Huynh Primary Care Provider Allergies Active Allergy Reactions Severity Noted Date Comments Codeine Phosphate Hives Medium Naproxen Hives High 11/29/2019 Medications Medication Sig Dispensed Refills Start Date End Date Status metoprolol tartrate 0 02/09/2010 Active (LOPRESSOR) 25 mg tablet albuterol (VENTOLIN HFA) 0 02/09/2010 Active 90 mcg/Actuation inhaler citalopram (CELEXA) 20 mg Take 20 mg by 0 Active Tablet mouth daily. Xarelto 2.5 mg Tablet Take 2.5 mg by 0 07/31/2021 Active mouth 2 times daily. lisinopriL (Zestril) 40 Take 40 mg by 0 11/27/2021 Active mg Tablet mouth daily. Trelegy Ellipta 0 11/16/2021 Act evaristo 200-62.5-25 mcg prochlorperazine Take 1 tablet 30 tablet 3 12/11/2021 Active (Compazine) 10 mg Tablet by mouth every 6 hours as needed for Nausea. oxyCODONE (Roxicodone) 5 Take 1 tablet 90 tablet 0 12/11/2021 Active mg Tablet by mouth every 6 hours as needed for Pain. Additional Information Patient not taking. Reported on 02/08/2022 nicotine (Nicoderm CQ) 21 Change 1 patch on the 28 patch 3 Active mg/24 hr Patch 24 hr skin daily. Additional Information Patient not taking. Reported on 02/18/2022 cholecalciferol, vitamin D3, Take 2,500 mcg by 0 Active (VITAMIN D3 ORAL) mouth daily. cyanocobalamin, Vitamin B-12, Inject 1,000 mcg as 0 Active 1,000 mcg/mL Solution directed every 30 days. nitroGLYcerin (Nitrostat) 0.4 Place 0.4 mg under the 0 Active mg Tablet, Sublingual tongue every 5 minutes as needed for Chest pain. morphine CR (Ms Contin) 30 mg Take 1 tablet by mouth 56 tablet 0 01/07/2022 Active Tablet Sustained Release 2 times daily. potassium chloride ER Take 1 tablet by mouth 30 tablet 3 01/07 Active (K-Dur/Klor-Con) 20 mEq Tab 2 times daily. Sust.Rel. Particle/Crystal atorvastatin (Lipitor) 80 mg Once Daily 0 03/14/2021 Active Tablet senna (Senokot) 8.6 mg Tablet Take 1 tablet by mouth 0 Active nightly. nicotine (NICOTROL) 10 mg Inhale 1 puff into the 42 each 3 0 02/08/2022 Active Cartridge lungs as needed for Smoking cessation. Active Problems Problem Noted Date Medication management 12/11/2021 Primary malignant neoplasm of right upper lobe of lung 12/08/2021 Cancer Staging: Clinical: Stage IVB (cT2 a, cN2, pM1c) - Signed by Jem Gannon MD on 12/08/2021 Brain metastases 12/08/2021 Neoplasm related pain 12/08/2021 Secondary malignant neoplasm of liver 11/28/2021 Hyperlipidemia 03/08/2014 COPD, moderate 03/08/2014 Emphysema/COPD 03/08/2014 H/O angina pectoris 03/08/2014 Esophageal reflux 03/08/2014 Arthritis 03/08/2014 Cigarette smoker 03/08/2014 Encounters Date Type Specialty Care Team Description 02/18/2022 Office Visit Hematology and Susana Ochoa RD Arrived Oncology 02/18/2022 Infusion Hematology and Medication ma nagement; Oncology Primary maligna nt neoplasm of right upper lobe of lung; Neoplasm relate d pain; Secondary malig nant neoplasm of liver 02/18/2022 Office Visit Hematology and Jem Gannon Primary ma lignant neoplasm of right upper lobe of lung; Oncology MD Rosa Elena Brain metastases; Chiara Taylor, Secondary malignant neoplasm of liver AUTO CUSTOMIZE PAINTER 02/18/2022 Notes Only Hematology and Mercy Nixon, Oncology ACCOUNTING OFFICE MANAGER 02/08/2022 Office Visit Radiation Oncology Darryl John S, Prim nallely malignant MD neoplasm of rig ht upper lobe of l bernice 01/30/2022 Infusion Hematology and Medication ma nagement; Oncology Primary maligna nt neoplasm of right upper lobe of lung; Neoplasm relate d pain; Secondary malig nant neoplasm of liver 01/30/2022 Office Visit Hematology and Susana Ochoa, RD Primary malignant Oncology neoplasm of rig ht upper lobe of l bernice 01/30/2022 Notes Only Hematology and Mercy Nixon, Oncology ACCOUNTING OFFICE MANAGER 01/29/2022 Infusion Hematology and Medication ma nagement; Oncology Primary maligna nt neoplasm of right upper lobe of lung; Neoplasm relate d pain; Secondary malig nant neoplasm of liver 01/28/2022 Infusion Hematology and Medication ma nagement; Oncology Primary maligna nt neoplasm of right upper lobe of lung; Neoplasm relate d pain; Secondary malig nant neoplasm of liver 01/28/2022 Office Visit Hematology and Jem Gannon Primary ma lignant neoplasm of right upper lobe of lung; Oncology MD Rosa Elena Secondary malignant neoplasm of liver; Chiara Taylor, Brain meta stases AUTO CUSTOMIZE PAINTER 01/24/2022 Ancillary Radiology Chioma Huynh, Procedure PA 01/17/2022 Ancillary Radiology Chioma Huynh, Procedure PA 01/09/2022 Infusion Hematology and Medication ma nagement; Oncology Primary maligna nt neoplasm of right upper lobe of lung; Neoplasm relate d pain; Secondary malig nant neoplasm of liver 01/08/2022 Infusion Hematology and Medication ma nagement; Oncology Primary maligna nt neoplasm of right upper lobe of lung; Neoplasm relate d pain; Secondary malig nant neoplasm of liver 01/07/2022 Infusion Hematology and Medication ma nagement; Oncology Primary maligna nt neoplasm of right upper lobe of lung; Neoplasm relate d pain; Secondary malig nant neoplasm of liver 01/07/2022 Office Visit Hematology and Jem Gannon Primary ma lignant neoplasm of right upper lobe of lung; Oncology MD Rosa Elena Brain metastases; Forauer, Chiara A, Hypokalemi a AUTO CUSTOMIZE PAINTER 01/07/2022 Notes Only Hematology and Mercy Nixon Oncology ACCOUNTING OFFICE MANAGER 01/04/2022 Telephone Hematology and Olivia White toll collector 12/19/2021 Infusion Hematology and Medication ma nagement; Oncology Primary maligna nt neoplasm of right upper lobe of lung; Neoplasm relate d pain; Secondary malig nant neoplasm of liver 12/18/2021 Infusion Hematology and Medication ma nagement; Oncology Primary maligna nt neoplasm of right upper lobe of lung; Neoplasm relate d pain; Secondary malig nant neoplasm of liver 12/17/2021 Infusion Hematology and Medication ma nagement; Oncology Primary maligna nt neoplasm of right upper lobe of lung; Neoplasm relate d pain; Secondary malig nant neoplasm of liver 12/17/2021 Notes Only Hematology and Mercy Nixon Oncology ACCOUNTING OFFICE MANAGER 12/14/2021 Orders Only Hematology and Jem Gannon Oncology MD Rosa Elena 12/12/2021 Telephone Hematology and Olivia White, Other (P alliative toll collector Care Referral) 12/11/2021 Hospital Encounter Hematology and Seconda ry malignant neoplasm of liver; Oncology Extensive stage small cell lung cancer; Medication shaquille gement 12/11/2021 Office Visit Hematology and Jem Gannon Extensive stage small cell lung cancer; Oncology MD Rosa Elena Brain metastase s; Secondary malig nant neoplasm of liver; Neoplasm relate d pain; Medication shaquille gement 12/06/2021 Hospital Encounter Radiology Jem 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 Hospital Encounter Radiology Jem Gannon malignant MD Rosa 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 Orders Only Hematology and Jem Gannon Secondary malignant Oncology MD Rosa Elena neoplasm of marily er 11/27/2021 Transcribe Orders Primary Care Chioma Huynh, Other malignant neuroendocrine tumors; KURT Other secondary neuroendocrine tumors 11/20/2021 Hospital Encounter Lab from Last 3 Months Family History Medical History Relation Comments Angioedema Father Hypertension Father Cancer Maternal Grandmother Brain Cancer Mother Relation Status Comments Father Maternal Grandmother Mother Social History Tobacco Use Types Packs/Day Years [...] Date Recorded Male 12/12/2021 7:38 PM EDT Last Filed Vital Signs Vital Sign Reading Time Taken Comments Blood Pressure 146/93 02/18/2022 9:02 AM EDT Pulse 70 02/18/2022 9:02 AM EDT Temperature 36.3 ??C (97.3 ??F) 02/18/2022 9:02 AM EDT Respiratory Rate 22 02/18/2022 9:02 AM EDT Oxygen Saturation 99% 02/18/2022 9:02 AM EDT Inhaled Oxygen Concentration - - Weight 54.1 kg (119 lb 3.2 oz) 02/18/2022 9:02 AM EDT Height 172 cm (5' 7.72) 02/18/2022 9:02 AM EDT Body Mass Index 18.28 02/18/2022 9:02 AM EDT Plan of Treatment Upcoming Encounters Date Type Specialty Care Team Description 02/19/2022 Infusion Hematology and Oncology 02/20/2022 Infusion Hematology and Oncology Health Maintenance Due Date Last Done Comments Covid-19 Vaccine (#1) 1959 Pneumoccocal Vaccine: 65+ (1 - PCV) 1960 Hepatitis C Screening 1972 Tdap adult 1973 Tetanus vaccine 1973 Colonoscopy 1999 Zoster vaccine (1 of 2) 2004 Advance Directive 2009 AAA Screen 2019 Influenza (Flu) vaccine (1 of 1 - Influenza standard 01/17/2022 series) Procedures Procedure Name Priority Date/Time Associated Comments Diagnosis LAB SCAN 02/18/2022 12:00 Results for this AM EDT procedure are i n the results section. LAB SCAN 02/15/2022 12:00 Results for this AM EDT procedure are i n the results section. LAB SCAN 01/28/2022 12:00 Results for this AM EDT procedure are i n the results section. FILM LIBRARY STORAGE Routine 01/24/2022 1:27 PM R esults for this ONLY MR HEAD EDT procedure are i n the results section. FILM LIBRARY STORAGE Routine 01/17/2022 12:00 Res ults for this ONLY CT CHEST AM EDT procedure are in the results section. LAB SCAN 01/09/2022 12:00 Results for this AM EDT procedure are i n the results section. COMPREHENSIVE Routine 01/09/2022 Results for th is METABOLIC PANEL procedure ar e in (NON-FASTING) the results section. LAB SCAN 01/07/2022 12:00 Results for this AM EDT procedure are i n the results section. DIFFERENTIAL, Routine 12/11/2021 1:34 PM Secondary malignant R esults for this AUTOMATED EDT neoplasm of liver procedure are in the results section. HEMOGRAM Routine 12/11/2021 1:34 PM Secondary malignant Re sults for this EDT neoplasm of liver procedure are in the results section. HC THYROID STIMULATING Routine 12/11/2021 1:[address] age Results for this HORMONE, SERUM EDT small cell lung procedure are in cancer the results Medication section. management HC FREE THYROXINE (T4) Routine 12/11/2021 1:[address] age Results for this EDT small cell lung procedure ar e in cancer the results Medication section. management HC LACTIC STAT 12/11/2021 1:34 PM Extensive stage Result s for this DEHYDROGENASE EDT small cell lung procedure a re in cancer the results section. HC MAGNESIUM, SERUM Routine 12/11/2021 1:34 PM Secondary malig nant Results for this EDT neoplasm of liver procedure are in the results section. COMPREHENSIVE Routine 12/11/2021 1:34 PM Secondary malignant R esults for this METABOLIC PANEL EDT neoplasm of liver procedu re are in (NON-FASTING) the results section. HC CBC,PLT & AUTO DIFF Routine 12/11/2021 1:34 PM Secondary ma lignant EDT neoplasm of liver MRI BRAIN WWO CONTRAST Routine 12/06/2021 8:22 AM Secondary ma lignant Results for this (GENERIC) EDT neoplasm of liver procedure are in the results section. CT CHEST W CONTRAST Routine 12/06/2021 7:20 AM Secondary malig nant Results for this EDT neoplasm of liver procedure are in the results section. CT SCAN (SCAN) 11/29/2021 12:00 Results f or this AM EDT procedure are i n the results section. LAB SCAN 11/28/2021 12:00 Results for this AM EDT procedure are i n the results section. LAB SCAN 11/28/2021 12:00 Results for this AM EDT procedure are i n the results section. LAB SCAN 11/28/2021 12:00 Results for this AM EDT procedure are i n the results section. LAB SCAN 11/28/2021 12:00 Results for this AM EDT procedure are i n the results section. LAB SCAN 11/28/2021 12:00 Results for this AM EDT procedure are i n the results section. LAB SCAN 11/28/2021 12:00 Results for this AM EDT procedure are i n the results section. LAB SCAN 11/28/2021 12:00 Results for this AM EDT procedure are i n the results section. LAB SCAN 11/28/2021 12:00 Results for this AM EDT procedure are i n the results section. ULTRASOUND SCAN (SCAN) 11/28/2021 12:00 R esults for this AM EDT procedure are i n the results section. DIAGNOSTIC RADIOLOGY 11/28/2021 12:00 Res ults for this SCAN AM EDT procedure are i n the results section. CT SCAN (SCAN) 11/28/2021 12:00 Results f or this AM EDT procedure are i n the results section. CT SCAN (SCAN) 11/28/2021 12:00 Results f or this AM EDT procedure are i n the results section. CT SCAN (SCAN) 11/27/2021 12:00 Results f or this AM EDT procedure are i n the results section. CT SCAN (SCAN) 11/27/2021 12:00 Results f or this AM EDT procedure are i n the results section. CT SCAN (SCAN) 11/27/2021 12:00 Results f or this AM EDT procedure are i n the results section. SURGICAL PATHOLOGY Routine 11/20/2021 11:15 Resul ts for this REPORT AM EDT procedure are i n the results section. from Last 3 Months Results SCAN DOC: LAB (02/18/2022 12:00 AM EDT)Only the most recent of13 resultswithin the time period is included. Narrative 02/18/2022 12:00 AM EDT This result has an attachment that is no t available. Ordered by an unspecified provider. Scanning Provider MEDIA MGR SCAN EXT ORDR/RSLT Film Library- Storage Only MR Head (01/24/2022 1:27 PM EDT) Specimen (Source) Anatomical Location Collection Method / Collectio n Time Received Time / Laterality Volume Narrative [facility] - 01/24/2022 1:27 PM EDT This exam is auto-finalizing. It's purpo se is for storage only. Chioma HICKS IM FILM LIBRARY ORDERABLES Performing Organization Address City/[facility] Phon e Number [place], [place] Film Library- Storage Only CT Chest (01/17/2022 12:00 AM EDT) Specimen (Source) Anatomical Location Collection Method / Collectio n Time Received Time / Laterality Volume Narrative RAD - 01/24/2022 1:22 PM EDT This exam is auto-finalizing. It's purpo se is for storage only. Chioma HICKS IM FILM LIBRARY ORDERABLES Performing Organization Address City/[facility] Phon e Number [place], [place] Comprehensive metabolic panel (non-fasting) (01/09/2022)Only the most recent of2 resultswithin the time period is included. P athologist Signature BUN 18 Creatinine 0.5 Sodium 141 Potassium 3.9 Calcium 8.7 Total Protein 6.1 Albumin 2.7 Total Bilirubin 0.2 Alk Phos 86 AST 33 ALT 44 Specimen (Source) Anatomical Location Collection Method / Collectio n Time Received Time / Laterality Volume Blood 01/09/2022 Historical Provider CHEMISTRY ORDERABLES (ABNORMAL) Hemogram (12/11/2021 1:34 PM EDT) Analysis Performed At Patho logist Time Signature WBC 5.8 4.0 - 9.5 [facility] LABORATORY RBC 4.22 (L) 4.58 - [facility] 5.54 [facility] x10(6)/[facility] LABORATORY Hemoglobin 13.3 (L) 13.7 - [facility] g/dL [facility] Hematocrit 39.2 (L) 40.5 - [facility] 48.5 % [facility] MCV 92.9 82.9 - [facility] LABORATORY MCH 31.5 27.5 - [facility] 32.1 pg [facility] MCHC 33.9 32.0 - [facility] 35.7 g/dL [facility] Platelets 176 145 - [address] [facility] x10(3)/[facility] LABORATORY RDWSD 44.9 36.0 - [facility] Buzzoole 45.0 [facility] LABORATORY RDWCV 13.2 11.4 - [facility] 13.8 % [facility] LAB[facility] MPV 10.9 7.6 - 12.9 [facility] LABORATORY nRBC % Auto 0.0 % [facility] LABORATORY nRBC Abs Auto 0.000 0.000 - [facility] 0.000 [facility] x10(3)/[facility] LABORATORY Specimen Anatomical Collection Method Collection Time Receive d Time (Source) Location / / Volume Laterality Blood 12/11/2021 1:34 PM 2 1:41 EDT PM EDT Resulting Agency Comment Spec In Lab Jem Gannon MD HEMATOLOGY ORDERABLES Performing Organization Address City/State/[place] [address] Differential, Automated (12/11/2021 1:34 PM EDT) athologist Signature Neutrophils % 70.0 % [facility] LABORATORY Neutr Abs (ANC) 4.09 1.70 - [facility] 6.10 [facility] x10(3)/[facility] LABORATORY Lymphocytes % 18.0 % [facility] LABORATORY Lymphocytes Abs 1.0 0.9 - 3.[address] [facility] x10(3)/[facility] LABORATORY Monocytes % 7.7 % [facility] LABORATORY Monocyte Abs 0.4 0.3 - 0.[address] [facility] x10(3)/[facility] LABORATORY Eosinophils % 2.9 % [facility] LABORATORY Eosinophils Abs 0.2 0.0 - 0.[address] [facility] x10(3)/[facility] LABORATORY Basophils % 1.2 % [facility] LABORATORY Basophils Abs 0.1 0.0 - 0.[address] [facility] x10(3)/[facility] LABORATORY Immature Gran % 0.20 % [facility] LABORATORY Comment: Immature granulocytes(IG's)percentage an d absolute count will include metamyelocytes, myelocytes, and promyelo cytes. Blood smears from CBCs yielding IG's will be scanned manually for concor dance. If this scan disagrees with the automated IG or if promyelocytes are not ed, a manual differential will be performed. Laine Gran Abs 0.01 0.00 - 0.04 x10(3)/[facility] LABORATORY Specimen Anatomical Collection Method Collection Time Receive d Time (Source) Location / / Volume Laterality Blood 12/11/2021 1:34 PM 2 1:41 EDT PM EDT Resulting Agency Comment Spec In Lab Jem Gannon MD HEMATOLOGY ORDERABLES Performing Organization Address City/State/ZIP Code Phon e Number [place] [phone] [facility] LABORATORY Drive TSH (12/11/2021 1:34 PM EDT) athologist Signature TSH 1.30 0.27 - 4.[address] [facility] mcIU/mL [facility] LAB[facility] Comment: Reference Interval (mcIU/mL): Females: ??First Trimester: 0.23-3.88 ??Second Trimester: 0.22-3.90 ??Third Trimester: 0.44-4.66 Specimen Anatomical Collection Method Collection Time Receive d Time (Source) Location / / Volume Laterality Blood 12/11/2021 1:34 PM 2 1:41 EDT PM EDT Resulting Agency Comment Spec In Lab Jem Gannon MD CHEMISTRY ORDERABLES Performing Organization Address City/[facility]/[place] [address] (ABNORMAL) T4, free (12/11/2021 1:34 PM EDT) P athologist Signature Free T4 1.75 (H) 0.93 - 1.70 [facility] ng/dL [facility] LAB[facility] Comment: Reference Interval (ng/dL): Females: ??First Trimester: 0.97-1.68 ??Second Trimester: 0.77-1.51 ??Third Trimester: 0.77-1.49 Specimen Anatomical Collection Method Collection Time Receive d Time (Source) Location / / Volume Laterality Blood 12/11/2021 1:34 PM 2 1:41 EDT PM EDT Resulting Agency Comment Spec In Lab Jem Gannon MD CHEMISTRY ORDERABLES Performing Organization Address City/[facility]/[place] [address] Magnesium (12/11/2021 1:34 PM EDT) P athologist Signature Magnesium 0.98 0.69 - 1.07 [facility] mmol/L [facility] LABORATORY Specimen Anatomical Collection Method Collection Time Receive d Time (Source) Location / / Volume Laterality Blood 12/11/2021 1:34 PM 2 1:41 EDT PM EDT Resulting Agency Comment Spec In Lab Jem Gannon MD CHEMISTRY ORDERABLES Performing Organization Address City/[facility]/[place] [address] (ABNORMAL) Lactate Dehydrogenase (12/11/2021 1:34 PM EDT) P athologist Signature LDH 243 (H) 110 - [address] [facility] unit/L [facility] LABORATORY Specimen Anatomical Collection Method Collection Time Receive d Time (Source) Location / / Volume Laterality Blood 12/11/2021 1:34 PM 2 1:41 EDT PM EDT Resulting Agency Comment Spec In Lab Jem Gannon MD CHEMISTRY ORDERABLES Performing Organization Address City/State/[place] [address] MRI Brain wwo Contrast (Generic) (12/06/2021 8:22 AM EDT) Anatomical Region Laterality Modality Head Magnetic Resonance Specimen (Source) Anatomical Location Collection Method / Collectio n Time Received Time / Laterality Volume Impressions 12/06/2021 10:41 AM EDT Numerous enhancing metastases within the supra and infratentorial compartments as described above. Most of the lesions are subcentimeter in size. The largest lesion located in the left occipital lob e metastasis measuring 1.7 cm. No significant mass effect. Poor flow within the right cervical and petrous internal carotid artery. Recommend CTA neck for further evaluatio n. Thank you for letting us participate in the care of this patient. ??If you are a health care provider and have any questi ons regarding this report, please contact the number below. ??For patients who have questions please contact the health assisted living care manager that requested your imaging first. ? Narrative 12/06/2021 10:41 AM EDT EXAMINATION: MRI BRAIN WWO CONTRAST (GENERIC) CLINICAL HISTORY: Small cell lung cancer , staging 66 yo with newly diagnosed small cell noreen ng cancer (liver mets) Initial staging to exlcude BALL WINDER metastases TECHNIQUE: MRI of the brain was performed before an d after the intravenous administration of 11cc Dotarem. COMPARISON: None FINDINGS: Numerous rim-enhancing juxtacortical mas ses are identified. The largest enhancing lesion located in the left occ ipital lobe measures 1.7 cm. Mild amount of surrounding vasogenic edema. 2 subcentimeter enhancing masses identif ied within the right inferior cerebellum otherwise no posterior fossa masses. Many lesions demonstrate mildly restrict ed diffusion. Signal dropout within several lesions on the susceptibility we ighted sequence reflects calcification versus microhemorrhages. Ventricles are normal size and configura tion. Moderate small vessel ischemic disease with numerous foci of increased T2 signal within the supra tentorial white matter. Visualized paranasal sinuses and mastoid air cells are clear. No osseous metastases identified. Poor flow void within the right cervical petrous carotid artery reflects slow flow likely related to atherosclerotic d isease. Procedure Note Freddy Varghese MD - 12/06/2021Formatti ng of this note might be different from the original. EXAMINATION: MRI BRAIN WWO CONTRAST (GEN ERIK) CLINICAL HISTORY: Small cell lung cancer , staging 66 yo with newly diagnosed small cell noreen ng cancer (liver mets) Initial staging to exlcude BALL WINDER metastases TECHNIQUE: MRI of the brain was performed before an d after the intravenous administration of 11cc Dotarem. COMPARISON: None FINDINGS: Numerous rim-enhancing juxtacortical mas ses are identified. The largest enhancing lesion located in the left occ ipital lobe measures 1.7 cm. Mild amount of surrounding vasogenic edema. 2 subcentimeter enhancing masses identif ied within the right inferior cerebellum otherwise no posterior fossa masses. Many lesions demonstrate mildly restrict ed diffusion. Signal dropout within several lesions on the susceptibility we ighted sequence reflects calcification versus microhemorrhages. Ventricles are normal size and configura tion. Moderate small vessel ischemic disease with numerous foci of increased T2 signal within the supra tentorial white matter. Visualized paranasal sinuses and mastoid air cells are clear. No osseous metastases identified. Poor flow void within the right cervical petrous carotid artery reflects slow flow likely related to atherosclerotic d isease. IMPRESSION Numerous enhancing metastases within the supra and infratentorial compartments as described above. Most of the lesions are subcentimeter in size. The largest lesion located in the left occipital lob e metastasis measuring 1.7 cm. No significant mass effect. Poor flow within the right cervical and petrous internal carotid artery. Recommend CTA neck for further evaluatio n. Thank you for letting us participate in the care of this patient. If you are a health care provider and have any questi ons regarding this report, please contact the number below. For patients w ho have questions please contact the health assisted living care manager that requested your imaging first. Jem Gannon MD IMG MRI ORDERABLES CT Chest w Contrast (12/06/2021 7:20 AM EDT) Anatomical Region Laterality Modality Chest Computed Tomography Specimen (Source) Anatomical Collection Method Collection Time Re ceived Time Location / / Volume Laterality 12/06/2021 7:35 AM EDT Impressions 12/06/2021 8:33 AM EDT 1. ??New right upper lobe suprahilar mass, consistent with either primary pulmonary malignancy versus metastatic d isease. 2. ??Multiple new sub 5mm bilateral pulm onary nodules suspicious for pulmonary metastatic disease. 3. ??New large right and left hepatic le sions/metastases. 4. ??Large left adrenal mass/metastasis. 5. ??Multiple low-attenuation lesions wi thin the pancreas concerning for metastases. 6. ??Partially visualized periaortic lym phadenopathy. 7. ??Prominent precardiac lymph node con cerning for metastasis. Thank you for letting us participate in the care of this patient. ??If you are a health care provider and have any questi ons regarding this report, please contact the number below. ??For patients who have questions please contact the health assisted living care manager that requested your imaging first. ? Narrative 12/06/2021 8:33 AM EDT EXAMINATION: CT CHEST W CONTRAST CLINICAL HISTORY: Small cell lung cancer , assess treatment response 66 yo with new hepatic metastases whcih on bx are c/w small cell lung cancer-initial stage CT of the chest. TECHNIQUE: 3.75 mm thick axial contiguou s sections were obtained through the chest via helical acquisition after the intravenous administration of contrast, Administered 50.0 ml of OMNIPAQUE 300.00 mg/ml. Thin-section reconstructions as well as coronal and sagittal reformatted images were generated. COMPARISON: CT chest 03/17/2018 FINDINGS: Pulmonary parenchyma: There is centrilob ular emphysema. There is a 3 x 1.5 x 2.7 cm spiculated, irregular, right suprahil ar soft tissue mass within the medial right upper lobe, abutting the bronchova scular structures with encasement of a distal segmental right upper lobe pulmon nallely artery. This mass abuts the posterior mediastinum with effacement of the fat surrounding the upper esophagus (axial series 4 image 70). There is a new 1 cm pulmonary nodule wit hin the superior right middle lobe abutting the fissure (axial series 4 janice ge 164), and an adjacent 5 mm nodule. There are two new sub-1 cm pulmonary nod ules within the more inferior right middle lobe (axial series 4 image 227), with unchanged intrapulmonary lymph node located between these 2 nodules. There a re additional small, sub-5 mm pulmonary nodules located within the right upper l obe (axial series 4 image 62 and 40). There are sub-5 mm pulmonary nodules loc ated in the left lung apex (axial series 4 image 28, 25), also located within the more anterior left upper lobe (axial series 4 image 95 and 84). Unchanged int rapulmonary lymph node on the left lung base (axial series 4 image 259). Airways: Small amount of retained secret ions along the right mainstem bronchus posterior wall. Pleura: No pneumothorax. No pleural effu sions. Lymph nodes: There is a prominent 9 mm p recardiac lymph node (axial series 3 image 77), increased in size compared to prior. No hilar adenopathy. No axillary adenopathy. Heart, pericardium, and great vessels: N ormal cardiac size. No pericardial effusion. Normal caliber of the thoracic aorta. 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 A vascular conduit projects between the subclavian arteries with apparent na rrowing at the anastomoses but otherwise patent conduit. No central pulmonary emb chester. Other mediastinal structures: The right suprahilar mass abuts the posterior right mediastinum with effacement of the fat plane surrounding the esophagus. Lower neck: Vascular conduit bridging be tween the subclavian arteries as detailed above. Upper abdomen: There are is a large low- attenuation mass within the anterior right liver, the largest of which measur es 11 cm in size (axial series 3 image 109). There is an additional 5.5 cm mass within the left liver. There is a 4 cm left adrenal mass. Partially visualized periaortic lymphadenopathy measuring 1.6 cm in size. Small volume of perihepatic ascites. There are multiple masses within the tail of the pancreas measurin g 2.5 and 1 cm in size (axial series 3 image 27). There is an additional 1.4 cm low-attenuation lesion within the pancreatic neck.. Body wall soft tissues: There is a pauci ty of subcutaneous fat consistent with cachexia. Skeletal structures: There is kyphosis o f the midthoracic spine secondary to anterior wedging of multiple vertebral b odies. No acute osseous findings. No suspicious osseous lesions. Procedure Note Ollie Stephen MD - 12/06/2021Fo rmatting of this note might be different from the original. EXAMINATION: CT CHEST W CONTRAST CLINICAL HISTORY: Small cell lung cancer , assess treatment response 66 yo with new hepatic metastases whcih on bx are c/w small cell lung cancer-initial stage CT of the chest. TECHNIQUE: 3.75 mm thick axial contiguou s sections were obtained through the chest via helical acquisition after the intravenous administration of contrast, Administered 50.0 ml of OMNIPAQUE 300.00 mg/ml. Thin-section reconstructions as well as coronal and sagittal reformatted images were generated. COMPARISON: CT chest 03/17/2018 FINDINGS: Pulmonary parenchyma: There is centrilob ular emphysema. There is a 3 x 1.5 x 2.7 cm spiculated, irregular, right suprahil ar soft tissue mass within the medial right upper lobe, abutting the bronchova scular structures with encasement of a distal segmental right upper lobe pulmon nallely artery. This mass abuts the posterior mediastinum with effacement of the fat surrounding the upper esophagus (axial series 4 image 70). There is a new 1 cm pulmonary nodule wit hin the superior right middle lobe abutting the fissure (axial series 4 janice ge 164), and an adjacent 5 mm nodule. There are two new sub-1 cm pulmonary nod ules within the more inferior right middle lobe (axial series 4 image 227), with unchanged intrapulmonary lymph node located between these 2 nodules. There a re additional small, sub-5 mm pulmonary nodules located within the right upper l obe (axial series 4 image 62 and 40). There are sub-5 mm pulmonary nodules loc ated in the left lung apex (axial series 4 image 28, 25), also located within the more anterior left upper lobe (axial series 4 image 95 and 84). Unchanged int rapulmonary lymph node on the left lung base (axial series 4 image 259). Airways: Small amount of retained secret ions along the right mainstem bronchus posterior wall. Pleura: No pneumothorax. No pleural effu sions. Lymph nodes: There is a prominent 9 mm p recardiac lymph node (axial series 3 image 77), increased in size compared to prior. No hilar adenopathy. No axillary adenopathy. Heart, pericardium, and great vessels: N ormal cardiac size. No pericardial effusion. Normal caliber of the thoracic aorta. 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 A vascular conduit projects between the subclavian arteries with apparent na rrowing at the anastomoses but otherwise patent conduit. No central pulmonary emb chester. Other mediastinal structures: The right suprahilar mass abuts the posterior right mediastinum with effacement of the fat plane surrounding the esophagus. Lower neck: Vascular conduit bridging be tween the subclavian arteries as detailed above. Upper abdomen: There are is a large low- attenuation mass within the anterior right liver, the largest of which measur es 11 cm in size (axial series 3 image 109). There is an additional 5.5 cm mass within the left liver. There is a 4 cm left adrenal mass. Partially visualized periaortic lymphadenopathy measuring 1.6 cm in size. Small volume of perihepatic ascites. There are multiple masses within the tail of the pancreas measurin g 2.5 and 1 cm in size (axial series 3 image 27). There is an additional 1.4 cm low-attenuation lesion within the pancreatic neck.. Body wall soft tissues: There is a pauci ty of subcutaneous fat consistent with cachexia. Skeletal structures: There is kyphosis o f the midthoracic spine secondary to anterior wedging of multiple vertebral b odies. No acute osseous findings. No suspicious osseous lesions. IMPRESSION 1. New right upper lobe suprahilar mass, consistent with either primary pulmonary malignancy versus metastatic d isease. 2. Multiple new sub 5mm bilateral pulmon nallely nodules suspicious for pulmonary metastatic disease. 3. New large right and left hepatic lesi ons/metastases. 4. Large left adrenal mass/metastasis. 5. Multiple low-attenuation lesions with in the pancreas concerning for metastases. 6. Partially visualized periaortic lymph adenopathy. 7. Prominent precardiac lymph node parveen rning for metastasis. Thank you for letting us participate in the care of this patient. If you are a health care provider and have any questi ons regarding this report, please contact the number below. For patients w ho have questions please contact the health assisted living care manager that requested your imaging first. Jem Gannon MD [facility] [place] ORDERABLES SCAN DOC: CT SCAN (11/29/2021 12:00 AM EDT)Only the most recent of6 results within the time period is included. Narrative This result has an attachment that is no t available. Unknown MEDIA MGR SCAN EXT ORDR/RSLT SCAN DOC: ULTRASOUND (11/28/2021 12:00 AM EDT) Narrative This result has an attachment that is no t available. Unknown MEDIA MGR SCAN EXT ORDR/RSLT SCAN DOC: DIAGNOSTIC RADIOLOGY (11/28/2021 12:00 AM EDT) Narrative This result has an attachment that is no t available. Unknown MEDIA MGR SCAN EXT ORDR/RSLT Surgical Pathology Report (11/20/2021 11:15 AM EDT) Component Value Ref Test Analysis Performed At Patholo gist Range Method Time Signature Surgical [id number] ? Location: [facility] Pathology [place] Report The signing pathologist has (i) examined the relevant preparation(s) for the [facility] specimen(s) and (ii) rendered or confirmed the diagnosis(es) . HOSPITAL LABORATORY . 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 See discussi on #1. Electronically signed by: ?Scarlet ROWE PhD, Neeraj De Los Santos Verified: ??11/26/2021 9:47 ?? Pathologist Performed at: ??-[facility] [place], [place], [place] DISCUSSION 1. Immunohistochemical stain s support the above diagnosis. ki67 index is ~100%. The malignant cells are diffuse ly positive for TTF1 raising the possibility of lung primary location. ADDITIONAL STUDIES Immunohistochemistry Studies: Formalin-fixed, paraffin-emb edded tissue sections are studied using the polymer technique with appropriate positive and negative controls. ?These IHC studies provide the pathologist wit h adjunctive diagnostic information. Antibody specificity has been verified by testin g antibodies on a series of in-house tissues with known immunohistochemical perform ance characteristics. The clinical interpretation of any antibody positive stain ing or its absence is evaluated within the context of clinical presentation, morp hology, histopathological criteria and other diagnostic tests. Block ? Antibody ?Result (Positive /Negative) A1 ? CK7 ?positive A1 ? TTF1 ? positive A1 ? Synaptophysin ?positive A1 ? CK20 ? rare positive A1 ? CDX2 ? negative A1 ? ki67 ? ~100% positive SPECIMEN(S) SUBMITTED A - Liver Biopsy Referring Identifier: ??[id number] CLINICAL INFORMATION Liver mass SPECIMEN PROCESSING A - Labeled/Fixative: Liver BX, formalin. Quantity/Size: Three, ranging from 0.5 x 0.1 cm to 1.5 x 0.1 cm Tissue Description: Melendez-white needle core biopsies. Sections/Processing: Entirely submitted in 1 cassette labeled A1. ??sns Specimen (Source) Anatomical Collection Method Collection Time Re ceived Time Location / / Volume Laterality 11/20/2021 11:15 AM EDT Resulting Agency Comment Spec In Lab / WKS Chioma HICKS PATHOLOGY/CYTOLOGY ORDERABLE S Performing Organization Address City/State/[place] [address] from Last 3 Months Insurance Payer Benefit Plan / Subscriber ID Effective Dates Phone Addre ss Type Group AARP MANAGED AARP RPPO [id number] 2021-Presen [phone] [address] [address] MEDICARE MANAGED t [address] [place], [place]TE [id number] Advance Directives Documents on File Type Date Recorded Patient Bean Weigher Explanati on POLST/COLST (Order for Life 01/16/2022 10:20 AM c olst 01/16/22 Sustaining Treatment) Care Teams Pediatric Urologist Relationship Specialty Start Date End Date Chioma Huynh PA PCP - General 04/10/[address] [place] [address]
--- OUTSIDE RECORDS SUMMARY | 2022-02-18 10:38 | XMS_ITS | Encounter Summary ---
:1955 Author Organization [facility] [place] [address] Care Team Providers Name Role Phone Chioma Huynh Primary Care Provider Reason for Visit Reason Comments Chemotherapy C4D1 - Carbo/Etop/Atez Treatment/Therapy Plan Authorization (Routine) - Authorized Specialty Diagnoses / Procedures Referred By Contact Refer red To Contact Diagnoses Secondary malignant neoplasm of liver Primary malignant neoplasm of right upper lobe of lung Neoplasm related pain Medication management Jem Gannon MD [facility] Procedures TC PALONOSETRON HCL, 25MCG, INJECTION (ALOXI) TC FOSAPREPITANT, 1MG, INJECTION (EMEND) TC CARBOPLATIN, 50MG, INJECTION (PARAPLATIN) TC ETOPOSIDE, 10MG, INJECTION (VEPESID) J2469 Aloxi 0.25 MG - NR J1453 EMEND [address] J9022 atezolizumab (Tecentri q) 1200 MG J9045 CARBOplatin (Paraplatin) 353 MG [id number] ETOPOSIDE - VEPESID 130 MG HEMATOLOGY/[place] [phone] Fax: Referral ID Status Reason Start Date Expiration Date Visits V isits Requested Authorized [id number] Authorized 12/17/2021 12/13/2022 99 99 Encounter Details Date Type Department Care Team Description 02/18/2022 Infusion Hematology Oncology at [facility] dication [facility]; [facility] Primary malignant neoplasm o f right upper lobe of lung; [address] Neoplasm related pain; [facility] [place] [phone] Secondary malignant neoplasm of liver [phone] Social History Tobacco Use Types Packs/Day Years [...] place to sleep or slept in a usp (including now)? Sex Assigned at Date Recorded [...] liver documented in this encounter Administered Medications Active Administered Medications - up to 3 most recent administrations Medication Order MAR Action Action Date Dose Rate Site atezolizumab (Tecentriq) 1,200 mg in sod ium chloride 0.9% 270 mL infusion 1,200 mg, Intravenous, ONCE, 1 dose, On Fri02/18/22 at 1115, Administer over 30 Minutes, NO DOSE ADJUSTMENTS. Give initial dose over 6 0 minutes. If the initial dose is tolerated, all subsequent doses can be given over 30 minutes., This agent is restricted to outpatient use. Is this drug being gi esteban as an outpatient? Yes CARBOplatin (Paraplatin) 366 mg in dextr ose 5% 286.6 mL infusion 366 mg (Target AUC = 4), Intravenous, ONCE, 1 dose, On Fri02/18/22 at 1115, Administer over 30 Minutes, Warning Vesicant/Irrita nt Medication etoposide (Vepesid) 126.5 mg in sodium c hloride 0.9% Non-PVC 506.33 mL infusion 126.5 mg (rounded from 126.4 mg = 80 mg/ m2/dose ? 1.58 m2 Treatment Plan BSA from Recorded weight), Intravenous, ONCE, 1 dose, On Fri02/18/22 at 1115, Administer over 60 Minutes, Warnin g Vesicant/Irritant Medication Inactive Administered Medications - up to 3 most recent administrations Medication Order MAR Action Action Date Dose Rate Site dexAMETHasone (Decadron) (10 Given 02/18/2022 10:21 AM EDT 10 mg mg/mL) injection 10 mg 10 mg, Intravenous, ONCE, 1 dose, On Fri02/18/22 at 1015, Administer prior to chemotherapy fosaprepitant (Emend) 150 mg in New Bag 02/18/2022 10:25 AM ED T 150 mg 310 mL/hr sodium chloride 0.9% 155 mL infusion 150 mg, Intravenous, at 310 mL/hr, ONCE, 1 dose, On Fri02/18/22 at 1015, Routine palonosetron (Aloxi) (0.05 mg/mL) injection Given 07/2021 10:22 AM EDT 0.25 mg 0.25 mg 0.25 mg, Intravenous, ONCE, 1 dose, On Fri02/18/22 at 1015, Administer over 30 seconds., Routine documented in this encounter Care Teams Project Asst Relationship Specialty Start Date End Date Chioma Huynh PA PCP - General 04/10/[address] [place] [address] documented as of this encounter
--- OUTSIDE RECORDS SUMMARY | 2022-02-18 10:38 | XMS_ITS | Encounter Summary ---
:1955 Author Organization [facility] [place] [address] Care Team Providers Name Role Phone Chioma Huynh Primary Care Provider Encounter Details Date Type Department Care Team Description 01/17/2022 Ancillary Procedure Radiology Library at Obdulio Huynh [facility] [address] [address] [place] [address] [phone] Social History Tobacco Use Types Packs/Day Years [...] and Oncology documented as of this encounter Procedures Procedure Name Priority Date/Time Associated Diagnosis Comme nts FILM LIBRARY Routine 01/17/2022 12:00 AM Results for this STORAGE ONLY CT EDT procedure ar patricia in CHEST the results section. documented in this encounter Results Film Library- Storage Only CT Chest (01/17/2022 12:00 AM EDT) Specimen (Source) Anatomical Location Collection Method / Collectio n Time Received Time / Laterality Volume Narrative RAD - 01/24/2022 1:22 PM EDT This exam is auto-finalizing. It's purpo se is for storage only. Chioma HICKS IMErin FILM LIBRARY ORDERABLES Performing Organization Address City/State/ZIP Code Phon e Number [place], [place] documented in this encounter Visit Diagnoses Not on filedocumented in this encounter Care Teams Mine Safety Engineer Relationship Specialty Start Date End Date Chioma Huynh PA PCP - General 04/10/[address] [place] [id number] documented as of this encounter
--- OUTSIDE RECORDS SUMMARY | 2022-02-18 10:38 | XMS_ITS | Encounter Summary ---
:1955 Author Organization [facility] [place] [address] Care Team Providers Name Role Phone Chioma Huynh Primary Care Provider Encounter Details Date Type Department Care Team Description 01/30/2022 Office Visit Hematology/Oncology uSsana Ochoa, RD Primary malignant at [facility] neoplasm of right [address] upper lobe of lung [place], [place] HEMATOLOGY AND [id number] ONCOLOGY [phone] [place], [place] [address] Social History Tobacco Use Types Packs/Day Years [...] place to sleep or slept in a intermediate (including now)? Sex Assigned at Date Recorded Male 12/12/2021 7:38 PM EDT documented as of this encounter Progress Notes Page, Susana Wu, RD - 01/30/2022 11:00 AM EDT [facility] Initial Assessment Patient Name: Codey Lucio Diagnosis: SCLC with hepatic and brain mets Referred by: Dr. Gannon Assessment: HPI Patient Active Problem List Diagnosis Code ??? Hyperlipidemia E78.5 ??? COPD, moderate J44.9 ??? Emphysema/COPD J43.9 ??? H/O angina pectoris Z86.79 ??? Esophageal reflux K21.9 ??? Arthritis M19.90 ??? Cigarette smoker F17.210 ??? Secondary malignant neoplasm of liver C78.7 ??? Primary malignant neoplasm of right upper lobe of lung C34.11 ??? Brain metastases C79.31 ??? Neoplasm related pain G89.3 ??? Medication management Z79.899 Estimated body mass index is 18.89 kg/m?? as calculated from the following: Height as of an earlier encounter on 01/30/22: 172 cm (5' 7.72). Weight as of an earlier encounter on 01/30/22: 55.9 kg (123 lb 3.2 oz). Wt Readings from Last 3 Encounters: 01/30/22 55.9 kg (123 lb 3.2 oz) 01/29/22 54.6 kg (120 lb 6.4 oz) 01/28/22 52.8 kg (116 lb 6.4 oz) Wt Readings from Last 10 Encounters: 01/30/22 55.9 kg (123 lb 3.2 oz) 01/29/22 54.6 kg (120 lb 6.4 oz) 01/28/22 52.8 kg (116 lb 6.4 oz) 01/09/22 56.2 kg (124 lb) 01/08/22 55.3 kg (122 lb) 01/07/22 53.2 kg (117 lb 3.2 oz) 12/19/21 57.8 kg (127 lb 6.4 oz) 12/18/21 54.4 kg (120 lb) 12/17/21 53.7 kg (118 lb 6.4 oz) 12/11/21 52.5 kg (115 lb 12.8 oz) 147# at start of 2021 BMI 18.89 24# loss in the past 9 months (16.3% body weight) Weight varies 116-124# over the past 1.5 months Medications: vitamin D3, Vitamin B12, MS Contin, KCl, Xarelto, Lisinopril, compazine prn, oxycodone (not taking), nicotine patch, celexa, metoprolol, atorvastatin Treatment: Palliative systemic therapy with carboplatin, etoposide, and atezolizumab. Today is Cycle3, Day 3. Labs on 01/28: WBC 4.26L, H/H 10.1/31.0, platelet 248H Nutrition Screen 01/30/2022 01/28/2022 Reason for assessment Unintentional weight loss;Symptom management;New consult - Total MST Score - 0 Functional Status 01/30/2022 Appetite Similar compared to usual intake Patient reports he has a good appetite. He denies any other symptoms related to treatment. Food History, Access and Intake 01/30/2022 Use of oral nutritional supplements Boost Breakfast: muffin Lunch: skipped today because of being at chemotherapy Dinner: Cisse's pie Beverages: Coffee, Boost (2-3 per day), root beer, iced tea, water Patient lives at home with his . He reports he eats three meals per day plus 2-3 bottles of Boost per day. He has sometimes skipped lunch while sitting in chemotherapy and declined any offers of food today. Food Insecurity Screening 12/11/2021 Within the past 12 months, the food you bought just didn't last and you didn't have money to get more. 2 Denied having any financial stress related to purchasing food or ONS Nutrition Diagnosis 01/30/2022 Problems Involuntary weight loss related to difficulty meeting increased needs for protein/calories as evidenced by BMI 18.9 and 24# loss in the past 9 months (16.3% body weight). Estimated needs based on current weight of 55.9 k kcals (40 kcal/kg) 84-112 g protein (1.5-2g/kg) 1 ml/kcal fluids Nutrition Intervention: * Discussed how his diagnoses of metastatic SCLC and COPD both increase his calorie and protein needs. * Strongly encouraged eating every 2-3 hours and not skipping meals, including lunch during treatment days. Reviewed sources of protein and fat to include. Provided with 100 calorie additions handout. * Continue 2-3 Boost per day. Make sure he purchases Boost Plus next time for maximum calories. Consider putting in blender operator with scoop of ice cream. Monitoring and Evaluation: Will follow up with Codey on 02/18 to re-evaluate. I have provided him with my card and contact information should he have any questions in the meantime. Thank you for this consult. Susana Ochoa RD documented in this encounter Plan of Treatment Upcoming Encounters Date Type Specialty Care Team Description 02/19/2022 Infusion Hematology and Oncology 02/20/2022 Infusion Hematology and Oncology documented as of this encounter Visit Diagnoses Diagnosis Primary malignant neoplasm of right uppe r lobe of lung Malignant neoplasm of upper lobe, bronch us or lung documented in this encounter Care Teams Telephone Directory Distributor Driver Relationship Specialty Start Date End Date Chioma Huynh PA PCP - General 04/10/[address] [place] [id number] documented as of this encounter
--- OUTSIDE RECORDS SUMMARY | 2022-02-18 10:38 | XMS_ITS | Encounter Summary ---
:1955 Author Organization [facility] [place] [address] Care Team Providers Name Role Phone Chioma Huynh Primary Care Provider Encounter Details Date Type Department Care Team Description 01/24/2022 Ancillary Procedure Radiology Library at Obdulio Huynh [facility] [address] [address] [place] [address] [phone] Social History Tobacco Use Types Packs/Day Years [...] Associated Diagnosis Comme nts FILM LIBRARY Routine 01/24/2022 1:27 PM Results f or this STORAGE ONLY MR EDT procedure ar e in HEAD the results section. documented in this encounter Results Film Library- Storage Only MR Head (01/24/2022 1:27 PM EDT) Specimen (Source) Anatomical Location Collection Method / Collectio n Time Received Time / Laterality Volume Narrative RAD - 01/24/2022 1:27 PM EDT This exam is auto-finalizing. It's purpo se is for storage only. Chioma HICKS IMErin FILM LIBRARY ORDERABLES Performing Organization Address City/State/ZIP Code Phon e Number [place], [place] documented in this encounter Visit Diagnoses Not on filedocumented in this encounter Care Teams Ground Host/Hostess Relationship Specialty Start Date End Date Chioma Huynh PA PCP - General 04/10/[address] [place] [id number] documented as of this encounter
--- OUTSIDE RECORDS SUMMARY | 2022-02-18 10:38 | XMS_ITS | Encounter Summary ---
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 Brain metastases Jem Gannon MD [facility] Rad Onc Treatment [address] HEMATOLOGY/ONCOLOGY [place], [place] DEPT [phone] [place] [address] Referral ID Status Reason Start Date Expiration Date Visits V isits Requested Authorized [id number] Closed Consult, 01/28/2022 01/28/2023 1 1 Test & Treat Consultation (Routine) - Authorized Specialty Diagnoses / Procedures Referred By Contact Refer red To Contact Hematology and Diagnoses 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 Brain metastases Jem Gannon MD [facility] Hem Onc 3k Oncology [facility] HEMATOLOGY/ONCOLOGY [place] [phone] Fax: Referral ID Status Reason Start Expiration Visits Visits Date Date Requested Authorized [id number] Authorized Continuity of 01/28/2022 01/28/2023 1 1 Care Encounter Details Date Type Department Care Team Description 01/28/2022 Office Visit Hematology/Oncology Filomena Gannon MD [facility] DR HEMATOLOGY/[place] [address] Primary malignant neoplasm of right uppe r lobe of lung; at [facility] Chiara Taylor APRN [facility] [place]EMATOLOGY [place] [address] Secondary malignant neoplasm of liver; [address] [place] [address] Social History Tobacco Use Types Packs/Day Years [...] place to sleep or slept in a skilled nursing (including now)? Sex Assigned at Date Recorded Male 12/12/2021 7:38 PM EDT documented as of this encounter Last Filed Vital Signs Vital Sign Reading Time Taken Comments Blood Pressure 147/78 01/28/2022 8:29 AM EDT Pulse 83 01/28/2022 8:29 AM EDT Temperature 36.5 ??C (97.7 ??F) 01/28/2022 8:29 AM EDT Respiratory Rate 20 01/28/2022 8:29 AM EDT Oxygen Saturation 99% 01/28/2022 8:29 AM EDT Inhaled Oxygen Concentration - - Weight 52.8 kg (116 lb 6.4 oz) 01/28/2022 8:29 AM EDT Height 172 cm (5' 7.72) 01/28/2022 8:29 AM EDT Body Mass Index 17.85 01/28/2022 8:29 AM EDT documented in this encounter Progress Notes Jem Gannon MD - 01/28/2022 8:30 AM EDT Images from the original note were not included. Thoracic Oncology [facility] [place] [address] [phone] Codey Lucio is being seen for the evaluation of lung cancer. Assessment & Plan: Codey Lucio is a 66 y.o. male patient with a past medical history significant for CAD s/p CABG 03/08, PVD degenerative disc disease of L5-S1 spine, GERD, asbestos exposure, COPD with a 50+ pk year smoking hx diagnosed with extensive stage small lung cancer with hepatic and brain metastases. He began palliative systemic therapy urgently on 12.17.21 with carboplatin etoposide and atezolizumab. Good response after 2 cycles as seen on CT scan and MRI below. Restage Plan: Labs and toxicities assessed and acceptable for ongoing treatment. -Proceed with next cycle of carboplatin etoposide and atezolizumab. We will use again 80% doses. - Plan for additional 2 cycles (including today) and then restage and consider PCI prior to maintenance immunotherapy - Has connected with palliative care - Hyperthyroid on labs - no modifications for now as he will likely become hypothyroid ultimately -Continue long-acting MS SR 30 mg twice daily with breakthrough oxycodone. - - Referral to nutrition given weight loss - Discussed importance of smoking cessation and abstaining from Etoh (this seems to be a point of tension between him and his ) - Referral to radiation oncology for consideration of cranial irradiation ideally after C4 restaging -Previously gave them a CA Advance Care Planning packet Jem Gannon MD, MS 01/28/2022 Thoracic Oncology [facility] CC: Sofía Brice SHOE LAY OUT PLANNER HPI/Interval History/Subjective: Last seen 01/07/2022 Here with is Stomach doesn't bother as much. No nausea no pain Still has trouble sleeping largely related to bladder sx Did feel pretty tired after the last cycle and had 2 weeks Hsa connected with palliative care MSSR 30mg BID. Has used the oxycodone just once or twice Weight has levelled off. Still with some dysphagia. Intermittent No fevers or infection No diarrhea. Tends towards constipation. No rashes. No headaches. Dizzy each day Breathing is ok. Can do the 4 stepseasily. Balance seems ok. No further falls Overall his feels that he is improving. He tends not to complain Social History/Support Network: Home situation: . Has two daughters from a prior marriage Lives [facility]. Lives [place] [address] from [employer], Employment: [employer]. Feels very poorly Tobacco use: Smoking < 1ppd currently but started at age 12. 50 pk year hx Alcohol use: Drinks a few times a week. Used to have night cap Drug use: None reported Financial Distress: None reported Likes outdoors service: No Family History: Mother- Dscd Brain cancer Father- Dscd HTN, Heart disease COPD No known history of lung cancer Oncology Overview: Cancer Staging Primary malignant neoplasm of right upper lobe of lung Staging form: Lung, AJCC 8th Edition - Clinical: Stage IVB (cT2a, cN2, pM1c) - Signed by Jem Gannon MD on 12/08/2021 Presentation: Codey Lucio is a 66 y.o. male patient with a past medical history significant for CAD s/p CABG 03/08, PVD degenerative disc disease of L5- S1 spine, GERD, asbestos exposure, COPD with a 50+ pk year smoking hx who developed progressive abdominal pain and was noted to have an enlarged liver at his PCP's office prompting an ED evaluation. Staging/PreTx Eval: 11.01.21 CT Abdomen - Multiple masses in the liver. Largest is 9.6 x 6.8 x 8.8 cm. Left adrenal mass 2.8 x 4 x 3[address] guided liver biopsy at Weeks 7.8 CT Head w/o CT - No metastases 7. CT Chest 1. New right upper lobe suprahilar mass, consistent with either primary pulmonary malignancy versus metastatic disease. 2. Multiple new sub 5mm bilateral pulmonary nodules suspicious for pulmonary metastatic disease. 3. New large right and left hepatic lesions/metastases. 4. Large left adrenal mass/metastasis. 5. Multiple low-attenuation lesions within the pancreas concerning for metastases. 6. Partially visualized periaortic lymphadenopathy. 7. Prominent precardiac lymph node concerning for metastasis. 7. MRI Brain IMPRESSION Numerous enhancing metastases within the supra and infratentorial compartments as described above. Most of the lesions are subcentimeter in size. The largest lesion located in the left occipital lobe metastasis measuring 1.7 cm. 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 See discussion #1. DISCUSSION 1. Immunohistochemical stains support the above diagnosis. ki67 index is ~100%. The ??malignant cells are diffusely positive for TTF1 raising the possibility of lung ??primary location. ADDITIONAL STUDIES Immunohistochemistry Studies: Formalin-fixed, paraffin-embedded tissue sections are studied using the polymer ??technique with appropriate positive and negative controls. ?These IHC studies ??provide the pathologist with adjunctive diagnostic information. Antibody specificity ??has been verified by testing antibodies on a series of in-house tissues with known ??immunohistochemical performance characteristics. The clinical interpretation of ??any antibody positive staining or its absence is evaluated within the context of ??clinical presentation, morphology, histopathological criteria and other diagnostic ??tests. Block ? Antibody ?Result (Positive/Negative) A1 ? CK7 ?positive A1 ? TTF1 ? positive A1 ? Synaptophysin ?positive A1 ? CK20 ? rare positive A1 ? CDX2 ? negative A1 ? ki67 ? ~100% positive Molecular Data: NA Treatment Course: 12.17.21 C1 Carboplatin/Etoposide/Atezolizumab C2 01.17.22 CT Chest with response to treatment ONCBCN ONCOLOGY (AMB) 12/17/2021 12/18/2021 12/19/2021 01/07/2022 01/08/2022 01/09/2022 Day, Cycle Day 1, Cycle 1 Day 2, Cycle 1 Day 3, Cycle 1 Day 1, Cycle 2 Day 2, Cycle 2 Day 3, Cycle 2 atezolizumab (Tecentriq) IV 1,200 mg - - 1,200 mg - - CARBOplatin (Paraplatin) IV 350 mg - - 350 mg - - etoposide 20 mg/mL (Vepesid) IV 80 mg/m2/dose = 126.5 mg 80 mg/m2/dose = 126.5 mg 80 mg/m2/dose = 126.5 mg 80 mg/m2/dose = 126.5 mg 80 mg/m2/dose = 126.5 mg 80 mg/m2/dose = 126.5 mg I reviewed the problem list, allergies, medications, past medical history, social history and familyhistory within the EPIC encounter. Pertinent details are noted above. Pertinent positives and negative from the Review of Systems are as summarized above in the HPI. Physical Exam: Wt Readings from Last 3 Encounters: 01/28/22 52.8 kg (116 lb 6.4 oz) 01/09/22 56.2 kg (124 lb) 01/08/22 55.3 kg (122 lb) Temp Readings from Last 3 Encounters: 01/28/22 36.5 ??C (97.7 ??F) (Temporal) 01/09/22 36.2 ??C (97.2 ??F) (Temporal) 01/08/22 36.3 ??C (97.3 ??F) (Temporal) BP Readings from Last 3 Encounters: 01/28/22 147/78 01/09/22 135/62 01/08/22 138/56 Pulse Readings from Last 3 Encounters: 01/28/22 83 01/09/22 56 01/08/22 68 Body surface area is 1.59 meters squared. Wt Readings from Last 3 Encounters: 01/28/22 52.8 kg (116 lb 6.4 oz) 01/09/22 56.2 kg (124 lb) 01/08/22 55.3 kg (122 lb) KPS Score ECOG Grade Definition 90-100 0 Fully active, able to carry on all pre-disease performance without restriction X 70-80 1 Restricted in physically strenuous activity but ambulatory and able to carry out work of alight or sedentary nature, e.g., light house work, office work 50-60 2 Ambulatory and capable of all selfcare but unable to carry out any work activities; up and about more than 50% of waking hours 30-40 3 Capable of only limited selfcare; confined to bed or chair more than 50% of waking hours 10-20 4 Completely disabled; cannot carry on any selfcare; totally confined to bed or chair Constitutional: Oriented to person, place, and time. Thin HENT: Mouth/Throat: Deferred due to COVID. Wearing a mask Eyes: No scleral icterus. No murmur heard. Pulmonary/Chest: Effort normal. No stridor. No respiratory distress. No wheezes. No rales. Abdominal: His hepatomegaly is reduced from the last time I saw him and he is not nearly as tender as he was on 8.1 x 22 Musculoskeletal: Normal range of motion. No edema. Neurological: Alert and oriented to person, place, and time. CN are grossly intact and non-focal. Skin: Skin is warm and dry. No rash noted. No erythema. Psychiatric: Normal mood and affect. Behavior is normal. Thought content normal. Review of Laboratory Data: 9.12.22 White blood cell count 4.26 hemoglobin 10.1 platelet count 248,000 absolute neutrophil count 2.73 Sodium 141 potassium 3.1 down from 3.9 BUN 17 creatinine 0.7 up from 0.5 glucose 147 calcium 8.7 total bilirubin 0.5 AST 44 from 33 from 48 ALT 43 alk phos 111 albumin 3.0 up from 2.7 TSH 0.29 which islow down from 1.09 Free T4 1.60 from 1.91 8..22 White blood cell count 3.74 hemoglobin 11.7 platelet count 239,000 absolute neutrophil count 2.28 Sodium 136 potassium 2.8 chloride 96 BUN 13 creatinine 0.8 glucose 154 calcium 8.8 magnesium 2.1 total bilirubin 0.7 AST 48 ALT 45 albumin 3.2 TSH 1.09 Free T4 slightly elevated at 1.91 Review of Imaging Data: 9.1.22 CT Chest (I reviewed the imaging personally which shows a response to treatment.) 9.8=22 MRI Brain (I reviewed the imaging personally which shows a response to treatment.) Review of Pathology Data: I personally reviewed the reports of the pathology as detailed in the oncology overview above. documented in this encounter Plan of Treatment Upcoming Encounters Date Type Specialty Care Team Description 02/19/2022 Infusion Hematology and Oncology 02/20/2022 Infusion Hematology and Oncology Scheduled Referrals Name Type Priority Associated Diagnoses Order S chedule Referral to Outpatient Referral Routine Primary malignant Ord ered: Nutrition Services neoplasm of right 01/17 upper lobe of noreen ng Secondary malignant neoplasm of live r Brain metastases Referral to Outpatient Referral Routine Primary malignant Ord ered: Radiation Oncology neoplasm of right 01/17 upper lobe of noreen ng Secondary malignant neoplasm of live r Brain metastases documented as of this encounter Visit Diagnoses Diagnosis Primary malignant neoplasm of right uppe r lobe of lung Malignant neoplasm of upper lobe, bronch us or lung Secondary malignant neoplasm of liver Brain metastases 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
--- OUTSIDE RECORDS SUMMARY | 2022-02-18 10:38 | XMS_ITS | Encounter Summary ---
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 Neoplasm related pain Medication management Jem Gannon MD [facility] Hem Onc Office Procedures TC PALONOSETRON HCL, 25MCG, INJECTION (ALOXI) TC FOSAPREPITANT, 1MG, INJECTION (EMEND) TC CARBOPLATIN, 50MG, INJECTION (PARAPLATIN) TC ETOPOSIDE, 10MG, INJECTION (VEPESID) J2469 Aloxi 0.25 MG - NR J1453 EMEND [address] J9022 atezolizumab (Tecentri q) 1200 MG [id number] CARBOplatin (Paraplatin) 353 MG [id number] ETOPOSIDE - VEPESID 130 MG HEMATOLOGY/[place] [phone] Fax: Referral ID Status Reason Start Date Expiration Date Visits V isits Requested Authorized [id number] Authorized 12/17/2021 12/13/2022 99 99 Encounter Details Date Type Department Care Team Description 01/09/2022 Infusion Hematology Oncology at [facility] dication management; [facility] Primary malignant neoplasm o f right upper lobe of lung; [address] Neoplasm related pain; [facility], [place] [phone] Secondary malignant neoplasm of liver [phone] Social History Tobacco Use Types Packs/Day Years [...] place to sleep or slept in a senior living (including now)? Sex Assigned at Date Recorded Male 12/12/2021 7:38 PM EDT documented as of this encounter Last Filed Vital Signs Vital Sign Reading Time Taken Comments Blood Pressure 135/62 01/09/2022 8:31 AM EDT Pulse 56 01/09/2022 8:31 AM EDT Temperature 36.2 ??C (97.2 ??F) 01/09/2022 8:31 AM EDT Respiratory Rate 18 01/09/2022 8:31 AM EDT Oxygen Saturation 99% 01/09/2022 8:31 AM EDT Inhaled Oxygen Concentration - - Weight 56.2 kg (124 lb) 01/09/2022 8:31 AM EDT Height 172 cm (5' 7.72) 01/09/2022 8:31 AM EDT Body Mass Index 19.01 01/09/2022 8:31 AM EDT documented in this encounter Progress Notes Martina Brasher RN - 01/09/2022 8:30 AM EDT INFUSION THERAPY ADMINISTRATION NOTES DIAGNOSIS: SCLC CYCLE #: Cycle 2, Day 3 - Etoposdie REASON FOR VISIT: To receive chemotherapy as planned and potentially potassium. SUBJECTIVE: Codey stated he had a lot of sweating last night. He did not think he had a fever. Denies chest pain, chills, or shortness of breath. OBJECTIVE: VSS. BP left only as there is a great discrepancy from left to right. LAB DATA: 01/07/22 - WBC - 3.74, H/H - 11.7/34.2, Plt Ct - 239, ANC - 2.28, Lytes with K+ - 2.8, BUN/Cr - 13/0.8, CA ++ - 8.8, MG++ - 2.1. 01/09/22 - K+- 3.9, other labs entered into eDH. He is taking oral K+ replacement. IV ACCESS: PIV placed 01/07. Flushes readily with brisk blood return. Pre administration: Chemotherapy orders independently verified for drug name, route, and dosage per patient's height, weight and BSA by Martina Brasher, XU and Staff Pharmacist(s). REACTIONS (DESCRIPTION, TIME, INTERVENTION AND EFFECTIVENESS) none ASSESSMENT: Codey was awake, alert and tolerated treatment well. PIV discontinued. PLAN: Return to clinic in three weeks for immunotherapy. documented in this encounter Plan of Treatment Upcoming Encounters Date Type Specialty Care Team Description 02/19/2022 Infusion Hematology and Oncology 02/20/2022 Infusion Hematology and Oncology documented as of this encounter Procedures Procedure Name Priority Date/Time Associated Diagnosis Comme nts COMPREHENSIVE METABOLIC Routine 01/09/2022 Resu lts for this PANEL (NON-FASTING) procedur e are in the results section . documented in this encounter Results Comprehensive metabolic panel (non-fasting) (01/09/2022) P athologist Signature BUN 18 Creatinine 0.5 Sodium 141 Potassium 3.9 Calcium 8.7 Total Protein 6.1 Albumin 2.7 Total Bilirubin 0.2 Alk Phos 86 AST 33 ALT 44 Specimen (Source) Anatomical Location Collection Method / Collectio n Time Received Time / Laterality Volume Blood 01/09/2022 Historical Provider MD CHEMISTRY ORDERABLES documented in this encounter Visit Diagnoses Diagnosis Medication management [...] Rate Site dexAMETHasone (Decadron) tablet 10 Given 01/09/2022 8:42 AM EDT 10 mg mg 10 mg, Oral, ONCE, 1 dose, On Fri01/09/22 at 0830, Administer prior to chemotherapy, Routine etoposide (Vepesid) 126.5 mg in New Bag 01/09/2022 8:47 AM EDT 126.5 mg 506.3 mL/hr sodium chloride 0.9% Non-PVC 506.33 mL infusion 126.5 mg (rounded from 126.4 mg = 80 mg/m2/dose ? 1.58 m2 Treatment Plan BSA from Recorded weight), Intravenous, ONCE, 1 dose, On Fri01/09/22 at 0900, Administer over 60 Minutes, Warning Vesicant/Irritant Medication sodium chloride 0.9% infusion New Bag 01/09/2022 8:43 AM EDT 200 mL/hr 200 mL/hr 200 mL/hr, Intravenous, CONTINUOUS, Starting on Fri01/09/22 at 0830, Until Fri01/09/22 at 1250 documented in this encounter Care Teams Hand Suture Winder Relationship Specialty Start Date End Date Chioma Huynh PA PCP - General 04/10/[address] [place] [id number] documented as of this encounter
--- OUTSIDE RECORDS SUMMARY | 2022-02-18 10:38 | XMS_ITS | Encounter Summary ---
:1955 Author Organization [facility] [place] [address] Care Team Providers Name Role Phone Chioma Huynh Primary Care Provider Reason for Referral Diagnostic Test (Routine) - New Request Specialty Diagnoses / Procedures Referred By Contact Refer red To Contact Radiology Diagnoses Primary malignant neoplasm of right upper lobe of lung Brain metastases Secondary malignant neoplasm of liver Jem Gandhi MD Procedures MRI Brain wwo Contrast (Generic) [facility] HEMATOLOGY/[place] [address] Referral ID Status Reason Start Expiration Visits Visits Date Date Requested Authorized [id number] New Request Specialty 02/18/2022 08/20/2023 1 1 Service Requested iagnostic Test (Routine) - Pending Review Specialty Diagnoses / Procedures Referred By Contact Refer red To Contact Radiology Diagnoses 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 Jem Gandhi MD [facility] Rad Nuclear Med Procedures NM PET CT Skull Base to Mid-thigh [facility] HEMATOLOGY/[place] [address] [place] [address] Referral ID Status Reason Start Expiration Visits Visits Date Date Requested Authorized [id number] Pending Specialty 02/18/2022 08/20/2023 1 1 Review Service Requested iagnostic Test (Routine) - Pending Review Specialty Diagnoses / Procedures Referred By Contact Refer red To Contact Radiology Diagnoses 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 Jem Gandhi MD [facility] Rad Nuclear Med Procedures NM Anderson PET CT Skull Base to Mid-thigh [facility] HEMATOLOGY/[place] [address] [place] [address] Referral ID Status Reason Start Expiration Visits Visits Date Date Requested Authorized [id number] Pending Specialty 02/18/2022 08/20/2023 1 1 Review Service Requested Encounter Details Date Type Department Care Team Description 02/18/2022 Office Visit Hematology/Oncology Filomena Gandhi MD [facility] HEMATOLOGY/[place] [address] Primary malignant neoplasm of right uppe r lobe of lung; at [facility] Chiara Taylor APRN [facility] HEMATOLOGY [place] [address] Brain metastases; [address] Secondary [place] ne[place] [address] Social History Tobacco Use Types [...] place to sleep or slept in a fdc (including now)? Sex Assigned at Date Recorded [...] Mass Index 18.28 02/18/2022 9:02 AM EDT documented in this encounter Progress Notes Jem Gandhi MD - 02/18/2022 8:30 AM EDT Images from the original note were not included. Thoracic Oncology [facility] [place] [address] [phone] Codey Lucio is being seen for the [...] We will use again 80% doses. - C4 today - Restage with PET scan and MRI and consider WBRT and consolidative RT - Has connected with palliative care - Hyperthyroid on labs - no modifications for now as he will likely become hypothyroid ultimately -Continue long-acting MS SR 30 mg twice daily with breakthrough oxycodone. - - Did not discuss today the importance of smoking cessation and abstaining from Etoh (this seems to be a point of tension between him and his ) - He can reduce KCL supplementation to once a day -Previously gave them a [place] Advance Care Planning packet Jem Gandhi MD, MS 02/18/2022 Thoracic Oncology [facility] CC: Sofía Rutledge MD HPI/Interval History/Subjective: Last seen 01/30/2022 Here with his Stomach doesn't bother as much. Some occasional nausea-once a week. Takes the compazine Still has trouble sleeping largely related to bladder sx Did feel pretty tired after the last cycle and had 2 weeks Hsa connected with palliative care MSSR 30mg BID. Infrequent oxycodone. Weight has levelled off. Weight stable No fevers or infection No diarrhea. Tends towards constipation. No rashes. No headaches. Balance seems ok. No further falls Overall his feels that he is improving. He tends not to complain Social History/Support Network: Home situation: . Has two daughters from a prior marriage Lives [facility]. Lives [address] from [employer], Employment: [employer]. Feels very poorly Tobacco use: Smoking < [...] (cT2a, cN2, pM1c) - Signed by Jem Gandhi MD on 12/08/2021 Presentation: Codey Lucio is [...] office prompting an ED evaluation. Staging/PreTx Eval: 6.16.22 CT Abdomen - Multiple masses in the liver. Largest is 9.6 x 6.8 x 8.8 cm. Left adrenal mass 2.8 x 4 x 3[address] guided liver biopsy at [facility] 7.8 CT Head w/o CT - No metastases 7.21 CT Chest 1. New right upper lobe [...] Prominent precardiac lymph node concerning for metastasis. 7.21 MRI Brain IMPRESSION Numerous enhancing metastases within [...] with response to treatment ONCBCN ONCOLOGY (AMB) 12/19/2021 01/07/2022 01/08/2022 01/09/2022 01/28/2022 01/29/2022 01/30/2022 Day, Cycle Day 3, Cycle 1 Day 1, Cycle 2 Day 2, Cycle 2 Day 3, Cycle 2 Day 1, Cycle 3 Day 2, Cycle 3Day 3, Cycle 3 atezolizumab (Tecentriq) IV - 1,200 mg - - 1,200 mg - - CARBOplatin (Paraplatin) IV - 350 mg - - 404 mg - - etoposide 20 mg/mL (Vepesid) [...] Exam: Wt Readings from Last 3 Encounters: 02/18/22 54.1 kg (119 lb 3.2 oz) 02/08/22 54.3 kg (119 lb 12.8 oz) 01/30/22 55.9 kg (123 lb 3.2 oz) Temp Readings from Last 3 Encounters: 02/18/22 36.3 ??C (97.3 ??F) (Temporal) 02/08/22 37 ??C (98.6 ??F) 01/30/22 36.4 ??C (97.5 ??F) (Temporal) BP Readings from Last 3 Encounters: 02/18/22 (!) 146/93 02/08/22 149/71 01/30/22 126/54 Pulse Readings from Last 3 Encounters: 02/18/22 70 02/08/22 74 01/30/22 58 Body surface area is 1.61 meters squared. Wt Readings from Last 3 Encounters: 02/18/22 54.1 kg (119 lb 3.2 oz) 02/08/22 54.3 kg (119 lb 12.8 oz) 01/30/22 55.9 kg (123 lb 3.2 oz) KPS Score ECOG Grade Definition 90-100 0 [...] Thought content normal. Review of Laboratory Data: 02.18.22 White blood cell count 3.29 hemoglobin 11.1 from 11.3 platelet count 190,000 absolute neutrophil count 1.59 on Thursday 02/15 it was 0.91 Sodium 140 potassium 3.9 chloride 103 BUN 14 creatinine 0.8 from 0.7 glucose 98 calcium 9.4 magnesium 2.4 total bilirubin 0.6 AST 58 from 40 ALT normal with 43 alk phos 107 albumin 3.6 from 3.3 TSH 0.50 Free T4 1.32 9.12.22 White blood cell count 4.26 hemoglobin [...] from 1.09 Free T4 1.60 from 1.91 8.22.22 White blood cell count 3.74 hemoglobin 11.7 [...] oncology overview above. documented in this encounter Miscellaneous Notes Addendum Note - Jem Gandhi MD - 02/18/2022 8:30 AM EDT Addended by: JEM GANDHI on: 02/18/2022 09:47 AM Modules accepted: Orders documented in this encounter Plan of Treatment Upcoming Encounters Date Type Specialty Care Team Description 02/19/2022 Infusion Hematology and Oncology 02/20/2022 Infusion Hematology and Oncology Scheduled Orders Name Type Priority Associated Diagnoses Order S chedule NM Anderson PET CT Imaging Routine Primary malignant Exp ected: 03/04/2022 Skull Base to Mid-thigh neoplasm of right upper (Approximate), lobe of lung Expires: 02/18/2023 Secondary malignant neoplasm of liver NM PET CT Skull Base to Imaging Routine Primary malignant Expected: 03/21/2022 Mid-thigh neoplasm of right upper (Jesus roximate), lobe of lung Expires: 02/18/2023 Secondary malignant neoplasm of liver MRI Brain wwo Contrast Imaging Routine Primary malignant Expected: 03/04/2022 (Generic) neoplasm of right upper (Jesus roximate), lobe of lung Expires: 02/18/2023 Brain metastases Secondary malignant neoplasm of liver documented as of this encounter Visit Diagnoses Diagnosis Primary malignant neoplasm of right uppe r lobe of lung Malignant neoplasm of upper lobe, bronch us or lung Brain metastases 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
--- OUTSIDE RECORDS SUMMARY | 2022-02-18 10:38 | XMS_ITS | Encounter Summary ---
:1955 Author Organization [facility] [place] [address] Care Team Providers Name Role Phone Chioma Huynh Primary Care Provider Reason for Visit Reason Comments Chemotherapy C3D1 Atezolizumab, carboplat in, etoposide Treatment/Therapy Plan Authorization (Routine) - Authorized Specialty Diagnoses / Procedures Referred By Contact Refer red To Contact Diagnoses Secondary malignant neoplasm of liver Primary malignant neoplasm of right upper lobe of lung Neoplasm related pain Medication management Jem Gannon MD [facility] Hem Onc Office Procedures TC PALONOSETRON HCL, 25MCG, INJECTION (ALOXI) TC FOSAPREPITANT, 1MG, INJECTION (EMEND) TC CARBOPLATIN, 50MG, INJECTION (PARAPLATIN) TC ETOPOSIDE, 10MG, INJECTION (VEPESID) J2469 Aloxi 0.25 MG - NR J1453 EMEND [address] J5015 atezolizumab (Tecentri q) 1200 MG J9045 CARBOplatin (Paraplatin) 353 MG J9181 ETOPOSIDE - VEPESID 130 MG HEMATOLOGY/ONCOLOGY DEPT [place], [place] [phone] Fax: Referral ID Status Reason Start Date Expiration Date Visits V isits Requested Authorized [id number] Authorized 12/17/2021 12/13/2022 99 99 Encounter Details Date Type Department Care Team Description 01/28/2022 Infusion Hematology Oncology at [facility] dication management; [facility] Primary malignant neoplasm o f right upper lobe of lung; [address] Neoplasm related pain; [facility] [place] [phone] Secondary malignant neoplasm of liver [phone] Social History Tobacco Use Types Packs/Day Years [...] documented as of this encounter Progress Notes Fina Glasgow RN - 01/28/2022 9:00 AM EDT INFUSION THERAPY ADMINISTRATION NOTES DIAGNOSIS: SCLC CYCLE #: Cycle 3, Day 1 - Atezolizumab, Carboplatin, Etoposdie REASON FOR VISIT: To receive chemotherapy as planned. SUBJECTIVE: Codey offers no complaints today, he met with Dr. Gannon prior to infusion, ready for treatment. OBJECTIVE: LAB DATA: 01/28/22 - WBC -4.26, H/H - 10.1/31, Plt Ct - 248, ANC - 2.73, Potassium 3.1, BUN/Cr - 17/0.7, CA ++ - 8.7 IV ACCESS: Left arm PIV Pre administration: Chemotherapy orders independently verified for drug name, route, and dosage per patient's height, weight and BSA by Fina Glasgow RN and Staff Pharmacist(s). REACTIONS (DESCRIPTION, TIME, INTERVENTION AND EFFECTIVENESS) none ASSESSMENT: Codey was awake, alert and tolerated treatment well. PIV left in place for treatment tomorrow. PLAN: Return to clinic tomorrow for C3D2. documented in this encounter Plan of Treatment [...] Action Date Dose Rate Site atezolizumab (Tecentriq) New Bag 01/28/2022 11:57 AM 1,200 mg 54 0 mL/hr 1,200 mg in sodium chloride EDT 0.9% 270 mL infusion 1,200 mg, Intravenous, ONCE, 1 dose, On Fri01/28/22 at 1215, Administer over 30 Minutes, NO DOSE ADJUSTMENTS. Give initial dose over 60 minutes. If the initial dose is tolerated, all subsequent doses can be given over 30 minutes., This agent is restricted to outpatient use. Is this drug being given as an outpatient? Yes CARBOplatin (Paraplatin) 404 mg New Bag 01/28/2022 12:49 PM ED T 404 mg 580.8 mL/hr in dextrose 5% 290.4 mL infusion 404 mg (Target AUC = 4), Intravenous, ONCE, 1 dose, On Fri01/28/22 at 1215, Administer over 30 Minutes, Warning Vesicant/Irritant Medication dexAMETHasone (Decadron) tablet 10 mg Given 01/28/2022 11:08 AM EDT 10 mg 10 mg, Oral, ONCE, 1 dose, On Fri01/28/22 at 1115, Administer prior to chemotherapy, Routine etoposide (Vepesid) 126.5 mg in New Bag 01/28/2022 1:38 PM EDT 126.5 mg 506.3 mL/hr sodium chloride 0.9% Non-PVC 506.33 mL infusion 126.5 mg (rounded from 126.4 mg = 80 mg/m2/dose ? 1.58 m2 Treatment Plan BSA from Recorded weight), Intravenous, ONCE, 1 dose, On Fri01/28/22 at 1215, Administer over 60 Minutes, Warning Vesicant/Irritant Medication fosaprepitant (Emend) 150 mg in New Bag 01/28/2022 11:17 AM ED T 150 mg 310 mL/hr sodium chloride 0.9% 155 mL infusion 150 mg, Intravenous, at 310 mL/hr, ONCE, 1 dose, On Fri01/28/22 at 1115, Routine palonosetron (Aloxi) (0.05 mg/mL) injection Given 01/17 11:11 AM EDT 0.25 mg 0.25 mg 0.25 mg, Intravenous, ONCE, 1 dose, On Fri01/28/22 at 1115, Administer over 30 seconds., Routine potassium chloride ER (K-Dur/Klor-Con) Given 01/28/2022 11:08 AM EDT 30 mEq tablet 30 mEq 30 mEq, Oral, ONCE, 1 dose, On Fri01/28/22 at 1115, Routine sodium chloride 0.9% infusion New Bag 01/28/2022 11:12 AM EDT 200 mL/hr 200 mL/hr 200 mL/hr, Intravenous, CONTINUOUS, Starting on Fri01/28/22 at 1115, Until Fri01/28/22 at 1721 documented in this encounter Care Teams Milker Machine Relationship Specialty Start Date End Date Chioma Huynh PA PCP - General 04/10/[address] [place] [address] documented as of this encounter
--- OUTSIDE RECORDS SUMMARY | 2022-02-18 10:39 | XMS_ITS | Encounter Summary ---
:1955 Author Organization [facility] [place] [address] Care Team Providers Name Role Phone Chioma Huynh Primary Care Provider Reason for Visit Reason Comments Chemotherapy Cycle 2, Day 2 - Etoposide Treatment/Therapy Plan Authorization (Routine) - Authorized Specialty Diagnoses / Procedures Referred By Contact Refer red To Contact Diagnoses Secondary malignant neoplasm of liver Primary malignant neoplasm of right upper lobe of lung Neoplasm related pain Medication management Jem Gannon MD [facility] Hem Onc Office Procedures TC PALONOSETRON HCL, 25MCG, INJECTION (ALOXI) TC FOSAPREPITANT, 1MG, INJECTION (EMEND) TC CARBOPLATIN, 50MG, INJECTION (PARAPLATIN) TC ETOPOSIDE, 10MG, INJECTION (VEPESID) J2469 Aloxi 0.25 MG - NR J1453 EMEND [address] J9022 atezolizumab (Tecentri q) 1200 MG J9045 CARBOplatin (Paraplatin) 353 MG J9181 ETOPOSIDE - VEPESID 130 MG HEMATOLOGY/[place] [phone] Fax: Referral ID Status Reason Start Date Expiration Date Visits V isits Requested Authorized [id number] Authorized 12/17/2021 12/13/2022 99 99 Encounter Details Date Type Department Care Team Description 01/08/2022 Infusion Hematology Oncology at [facility]; [facility] Primary malignant neoplasm o f right upper lobe of lung; [address] Neoplasm related pain; [facility] [place] [phone] Secondary malignant neoplasm of liver [phone] Social History Tobacco Use Types Packs/Day Years [...] place to sleep or slept in a mcfp (including now)? Sex Assigned at Date Recorded Male 12/12/2021 7:38 PM EDT documented as of this encounter Last Filed Vital Signs Vital Sign Reading Time Taken Comments Blood Pressure 138/56 01/08/2022 8:42 AM EDT Pulse 68 01/08/2022 8:42 AM EDT Temperature 36.3 ??C (97.3 ??F) 01/08/2022 8:42 AM EDT Respiratory Rate 20 01/08/2022 8:42 AM EDT Oxygen Saturation 100% 01/08/2022 8:42 AM EDT Inhaled Oxygen Concentration - - Weight 55.3 kg (122 lb) 01/08/2022 8:42 AM EDT Height 172 cm (5' 7.72) 01/08/2022 8:42 AM EDT Body Mass Index 18.71 01/08/2022 8:42 AM EDT documented in this encounter Progress Notes Martina Brasher RN - 01/08/2022 8:30 AM EDT INFUSION THERAPY ADMINISTRATION NOTES DIAGNOSIS: SCLC CYCLE #: Cycle 2, Day 2 - Etoposdie REASON FOR VISIT: To receive chemotherapy as planned. SUBJECTIVE: Codey stated he had a lot [...] 13/0.8, CA ++ - 8.8, MG++ - 2.1 IV ACCESS: PIV placed 01/07. Flushes readily with brisk blood return. Pre administration: Chemotherapy orders independently verified for drug name, route, and dosage per patient's height, weight and BSA by Martina Brasher, XU and Staff Pharmacist(s). REACTIONS (DESCRIPTION, TIME, INTERVENTION AND EFFECTIVENESS) none ASSESSMENT: Codey was awake, alert and tolerated treatment well. PIV flushed with 10 cc's of N and remains accessed for day 3 tomorrow. PLAN: Return to clinic tomorrow for day 3. documented in this encounter Plan of Treatment [...] Rate Site dexAMETHasone (Decadron) tablet 10 Given 01/08/2022 8:55 AM EDT 10 mg mg 10 mg, Oral, ONCE, 1 dose, On Fri01/08/22 at 0830, Administer prior to chemotherapy, Routine etoposide (Vepesid) 126.5 mg in New Bag 01/08/2022 9:00 AM EDT 126.5 mg 506.3 mL/hr sodium chloride 0.9% Non-PVC 506.33 mL infusion 126.5 mg (rounded from 126.4 mg = 80 mg/m2/dose ? 1.58 m2 Treatment Plan BSA from Recorded weight), Intravenous, ONCE, 1 dose, On Fri01/08/22 at 0930, Administer over 60 Minutes, Warning Vesicant/Irritant Medication sodium chloride 0.9% infusion New Bag 01/08/2022 8:55 AM EDT 200 mL/hr 200 mL/hr 200 mL/hr, Intravenous, CONTINUOUS, Starting on Fri01/08/22 at 0830, Until Fri01/08/22 at 1245 documented in this encounter Care Teams Computer Programmer Chief Relationship Specialty Start Date End Date Chioma Huynh PA PCP - General 04/10/[address] [place] [id number] documented as of this encounter
--- OUTSIDE RECORDS SUMMARY | 2022-02-18 10:39 | XMS_ITS | Encounter Summary ---
:1955 Author Organization [facility] [place] [address] Care Team Providers Name Role Phone Chioma Huynh Primary Care Provider Encounter Details Date Type Department Care Team Description 04/11/2014 Ancillary Appointment [facility] Rossy Jean Jr., Outpatient [address] [address] [place] [address] (Wo rk) Social History Tobacco Use Types Packs/Day Years Used Date Current Every Day Smoker 1 Financial Resource Strain Answer Date Recorded How [...] place to sleep or slept in a retirement (including now)? Sex Assigned at Date Recorded Male 12/12/2021 7:38 PM EDT documented as of this encounter Plan of Treatment Upcoming Encounters Date Type Specialty Care Team Description 02/19/2022 Infusion Hematology and Oncology 02/20/2022 Infusion Hematology and Oncology documented as of this encounter Procedures Procedure Name Priority Date/Time Associated Diagnosis Comme nts ECHOCARDIOGRAM Routine 04/11/2014 Results for t his SOUTH/EXTERNAL procedure are in the results section. documented in this encounter Results Echocardiogram South/External (04/11/2014) P athologist Signature EF 65% Anatomical Region Laterality Modality Other Narrative 04/11/2014 Echocardiogram Final Report ??Codey E Corbeil ??D.O.B.1955 [facility], [address] [facility] [address] PCP: KURT ORDAZ ??Indication: a bnormal holter Date of Study: 04/11/2014 Procedure: M- Mode, 2D, Doppler, and Col or Flow Doppler Quality: ?? good, digital study Measurements ?(N = normal) Ascending Aorta: x (N <3.2), Aortic Root : 3.0 ??(N<3.7), Aortic Cusp:x (N >1.4) Left Atrium: 12 (N<20), Right Atrium:13( N<17 ) LV Septum:1.0 (N <1.1),LV diastolic: 4.0 (N <5.6), LV posterior:1.0(N <1.1),RV: 0.5(N<0.7) Diastolic- E/A :1.1(N > 1.0), DT:235 (N< 240), IVRT: 128 (N <100), E': 11 Left Atrium: normal Mitral Valve: normal, ??trivial regurgit ation Left Ventricle: normal size EF 65% ?? di astolic function normal Segments: N-normal, PN- probably normal, H-hypokin etic, SH-severely hypo, A-akinetic Anteroseptal: base- N,mid- N, apex- N Anterior: base- N, mid- N, apex- N Anterolateral:base- N, mid- N, apex- N Posterolateral:base- N, mid-N Inferior: base-N,mid-N, apex-N Inferoseptal: ??Base-N,mid-N Aortic Valve: normal ??No regurgitation Aorta: normal Right Atrium: normal Tricuspid Valve: normal trivial regurgit ation ??gradient 25mmHg + assumed RA ??5 mmHg=PA 30 ??mmHg Right Ventricle: normal Pulmonic Valve: normal no PI Pericardium: normal comments/summary: ??Normal LV size and f unction, trivial MR and TR Electronically signed: Seamus Jean Jr, MD [facility] Historical Provider ECHO ORDERABLES documented in this encounter Visit Diagnoses Not on filedocumented in this encounter Care Teams Turkish Line Attendant Relationship Specialty Start Date End Date Chioma Huynh PA PCP - General 04/10/[address] [place] [id number] documented as of this encounter
--- OUTSIDE RECORDS SUMMARY | 2022-02-18 10:39 | XMS_ITS | Encounter Summary ---
:1955 Author Organization [facility] [place] [address] Care Team Providers Name Role Phone Chioma Huynh Primary Care Provider Reason for Referral Diagnostic Test (Routine) - Closed Specialty Diagnoses / Procedures Referred By Contact Refer red To Contact Radiology Diagnoses Secondary malignant neoplasm of liver Jem Gannon MD [facility] Rad [facility] Scan Procedures CT Chest w Contrast [facility] HEMATOLOGY[place] [address] [place] [address] Referral ID Status Reason Start Date Expiration Date Visits V isits Requested Authorized [id number] Closed Specialty 11/28/2021 05/31/2023 1 1 Service Requested Reason for Visit Diagnostic Test (Routine) - Closed Specialty Diagnoses / Procedures Referred By Contact Refer red To Contact Radiology Diagnoses Secondary malignant neoplasm of liver Jem Gannon MD [facility] Rad Ct Scan Procedures CT Chest w Contrast [facility] HEMATOLOGY/[place] [address] [place] [address] Referral ID Status Reason Start Date Expiration Date Visits V isits Requested Authorized [id number] Closed Specialty 11/28/2021 05/31/2023 1 1 Service Requested Encounter Details Date Type Department Care Team Description 12/06/[address] Scan [place] [facility] [place] Jem Gannon, Secondary malignant [facility] [place] [address] HEMATOLOGY/ONCOLOG [phone] Y DEPT [place], [place] [address] Social History Tobacco Use Types [...] PM EDT documented as of this encounter Medications at Time of Discharge Medication Sig Dispensed Refills Start Date End Date atorvastatin (Lipitor) 80 Once Daily 0 03/14/2021 mg Tablet Xarelto 2.5 mg Tablet Take 2.5 mg by 0 07/31/2021 mouth 2 times daily. lisinopriL (Zestril) 40 mg Take 40 mg by 0 2021 Tablet mouth daily. Trelegy Ellipta 200-62.5-25 0 11/17/19 22 mcg citalopram (CELEXA) 20 mg Take 20 mg by 0 Tablet mouth daily. metoprolol tartrate 0 02/09/2010 (LOPRESSOR) 25 mg tablet albuterol (VENTOLIN HFA) 90 0 02/10/20 10 mcg/Actuation inhaler nitroGLYcerin (Nitrostat) .COMPLEX 0 12/19/2020 01/07/2022 0.4 mg Tablet, Sublingual tadalafil (CIALIS) 5 mg Take 5 mg by mouth 0 01/07/2022 Tablet daily. FLUTICASONE/SALMETEROL 0 02/09/2010 (ADVAIR DISKUS INHL) ESOMEPRAZOLE MAG TRIHYDRATE 0 02/10/20 10 01/07/2022 (NEXIUM ORAL) DOCOSAHEXANOIC ACID/EPA 0 02/09/2010 0 01/07/2022 (FISH OIL ORAL) aspirin 81 mg EC tablet 0 02/09/2010 0 01/07/2022 ATORVASTATIN CALCIUM 0 02/09/201001/18 (LIPITOR ORAL) documented as of this encounter Plan of Treatment Upcoming Encounters Date Type Specialty Care Team Description 02/19/2022 Infusion Hematology and Oncology 02/20/2022 Infusion Hematology and Oncology documented as of this encounter Procedures Procedure Name Priority Date/Time Associated Diagnosis Comme nts CT CHEST W CONTRAST Routine 12/06/2021 7:20 AM Bobbi coffey Results for this EDT neoplasm of liver procedure are in the results section. documented in this encounter Results CT Chest w Contrast (12/06/2021 7:20 AM [...] who have questions please contact the health direct support professional caregiver that requested your imaging first. ? Narrative [...] ho have questions please contact the health direct support professional caregiver that requested your imaging first. Jem Gannon MD IMG CT ORDERABLES documented in this encounter Visit Diagnoses Diagnosis Secondary malignant neoplasm of liver documented in this encounter Administered Medications Inactive Administered Medications - up to 3 most recent administrations Medication Order MAR Action Action Date Dose Rate Site iohexoL (Omnipaque) (300 mg/mL) Given 12/06/2021 7:21 AM EDT 50 mLs solution 0-200 mL 0-200 mL, Intravenous, ONCE PRN, 1 dose, Starting on [place] 12/06/21 at 0720, Until [place] 12/06/21 at 0721, Per Protocol, Warning Vesicant/Irritant Medication , Radiology Contrast, Routine documented in this encounter Care Teams Clerical Support Relationship Specialty Start Date End Date Chioma Huynh PA PCP - General 04/10/[address] [place] [address] documented as of this encounter
--- OUTSIDE RECORDS SUMMARY | 2022-02-18 10:39 | XMS_ITS | Encounter Summary ---
:1955 Author Organization [place] [address] Care Team Providers Name Role Phone Chioma Huynh Primary Care Provider Reason for Referral Consultation (Routine) - Closed Specialty Diagnoses / Procedures Referred By Contact Refer red To Contact Hematology and Oncology Diagnoses Cigarette smoker Francisco Rausch, [facility] [place] [address] [facility] [address] [place] H[place]ATOLOGY/ONCOLOGY [address] [place] [address] Referral ID Status Reason Start Date Expiration Date Visits V isits Requested Authorized [id number] Closed Consult, 11/02/2021 11/02/2022 1 1 Test & Treat Encounter Details Date Type Department Care Team Description 11/02/2021 Orders Only Hematology and Francisco Rausch, Cigaret te smoker Oncology at [facility] (Primary Dx) [facility] [address] [place] HEMATOLOGY/ONCOL OGY [address] [place] [address] (Wo rk) Social History Tobacco Use Types [...] place to sleep or slept in a group home (including now)? Sex Assigned at Date Recorded Male 12/12/2021 7:38 PM EDT documented as of this encounter Plan of Treatment Upcoming Encounters Date Type Specialty Care Team Description 02/19/2022 Infusion Hematology and Oncology 02/20/2022 Infusion Hematology and Oncology Scheduled Referrals Name Type Priority Associated Order Schedule Diagnoses Referral to Outpatient Referral Routine Cigarette smoker Orde red: Hematology and 11/02/2021 Oncology documented as of this encounter Visit Diagnoses Diagnosis Cigarette smoker - Primary Tobacco use disorder documented in this encounter Care Teams Thermodynamics Teacher Relationship Specialty Start Date End Date Chioma Huynh PA PCP - General 04/10/[address] [place] [id number] documented as of this encounter
--- OUTSIDE RECORDS SUMMARY | 2022-02-18 10:39 | XMS_ITS | Encounter Summary ---
:1955 Author Organization 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 Neoplasm related pain Medication management Jem Gannon MD [facility] Hem Onc Office Procedures TC PALONOSETRON HCL, 25MCG, INJECTION (ALOXI) TC FOSAPREPITANT, 1MG, INJECTION (EMEND) TC CARBOPLATIN, 50MG, INJECTION (PARAPLATIN) TC ETOPOSIDE, 10MG, INJECTION (VEPESID) J2469 Aloxi 0.25 MG - NR J1453 EMEND [address] J9022 atezolizumab (Tecentri q) 1200 MG J9045 CARBOplatin (Paraplatin) 353 MG [id number] ETOPOSIDE - VEPESID 130 MG HEMATOLOGY/[place] [phone] Fax: Referral ID Status Reason Start Date Expiration Date Visits V isits Requested Authorized [id number] Authorized 12/17/2021 12/13/2022 99 99 Encounter Details Date Type Department Care Team Description 12/19/2021 Infusion Hematology [facility] Primary malignant neoplasm o f right upper lobe of lung; [address] Neoplasm related pain; [facility] [place] [address] Secondary malignant neoplasm of liver [phone] Social History Tobacco Use Types Packs/Day Years [...] Sign Reading Time Taken Comments Blood Pressure 144/51 12/19/2021 12:24 PM Take BP on l eft EDT Pulse 51 12/19/2021 12:24 PM EDT Temperature 36.2 ??C (97.2 ??F) 12/19/2021 12:24 PM EDT Respiratory Rate 18 12/19/2021 12:24 PM EDT Oxygen Saturation 100% 12/19/2021 12:24 PM EDT Inhaled Oxygen Concentration - - Weight 57.8 kg (127 lb 6.4 12/19/2021 12:24 PM rechecke d oz) EDT Height 172 cm (5' 7.72) 12/19/2021 12:24 PM EDT Body Mass Index 19.53 12/19/2021 12:24 PM EDT documented in this encounter Progress Notes Martina Brasher RN - 12/19/2021 12:30 PM EDT INFUSION THERAPY ADMINISTRATION NOTES DIAGNOSIS: SCLC CYCLE #: Cycle 1, Day 3 - Etoposdie REASON FOR VISIT: To receive chemotherapy as planned. SUBJECTIVE: Codey states his IV is sore. He denies nausea or neuropathy. He has gained 7.6 lbs from yesterday. He denies shortness of breath or chest pain. He does not exhibit peripheral edema. OBJECTIVE: VSS. BP left only as there is a great discrepancy from left to right. LAB DATA: 12/11/21 - WBC - 5.8, H/H - 13.3/39.2, Plt Ct - 176, ANC - 4.09, Lytes wnl, BUN/Cr - 20/0.85, CA ++ - 9.5, MG++ - 0.98 IV ACCESS: PIV replaced as previous right non-patent. Pre administration: Chemotherapy orders independently verified for drug name, route, and dosage per patient's height, weight and BSA by Martina Brasher RN and Staff Pharmacist(s). REACTIONS (DESCRIPTION, TIME, INTERVENTION AND EFFECTIVENESS) none ASSESSMENT: Codey was awake, alert and tolerated treatment well. PIV discontinued prior to dismissal. PLAN: Return to clinic per routine. documented in this encounter Plan of Treatment [...] Rate Site dexAMETHasone (Decadron) tablet 10 Given 12/19/2021 12:43 PM EDT 10 mg mg 10 mg, Oral, ONCE, 1 dose, On Fri12/19/21 at 1230, Administer prior to chemotherapy, Routine etoposide (Vepesid) 126.5 mg in New Bag 12/19/2021 1:06 PM EDT 126.5 mg 506.3 mL/hr sodium chloride 0.9% Non-PVC 506.33 mL infusion 126.5 mg (rounded from 126.4 mg = 80 mg/m2/dose ? 1.58 m2 Treatment Plan BSA from Recorded weight), Intravenous, ONCE, 1 dose, On Fri12/19/21 at 1330, Administer over 60 Minutes, Warning Vesicant/Irritant Medication sodium chloride 0.9% infusion New Bag 12/19/2021 12:44 PM EDT 200 mL/hr 200 mL/hr 200 mL/hr, Intravenous, CONTINUOUS, Starting on Fri12/19/21 at 1230, Until Fri12/19/21 at 1800 documented in this encounter Care Teams Estimator And Drafter Supervisor Relationship Specialty Start Date End Date Chioma Huynh PA PCP - General 04/10/[address] [place], [place] [id number] documented as of this encounter
--- OUTSIDE RECORDS SUMMARY | 2022-02-18 10:39 | XMS_ITS | Encounter Summary ---
:1955 Author Organization [facility] [place] [address] Care Team Providers Name Role Phone Chioma Huynh Primary Care Provider Reason for Visit Reason Comments Leg Pain Claudication Encounter Details Date Type Department Care Team Description 03/23/2014 Office Visit Vascular Surgery at [facility] PAD (peripheral artery [facility] MD disease) (Primary Dx) [facility] [address] [place] V[place]ULAR [place]GERY [address] [place] [address] [phone] Social History Tobacco Use Types Packs/Day Years [...] Sign Reading Time Taken Comments Blood Pressure 148/78 03/23/2014 11:42 AM EST Pulse 67 03/23/2014 11:42 AM EST Temperature - - Respiratory Rate - - Oxygen Saturation - - Inhaled Oxygen Concentration - - Weight 71.7 kg (158 lb) 03/23/2014 11:42 AM EST Height 172.7 cm (5' 8) 03/23/2014 11:42 AM EST Body Mass Index 24.02 03/23/2014 11:42 AM EST documented in this encounter Patient Instructions Patient InstructionsNura White MD - 03/23/2014 12:00 PM EST Return with problems or questions. documented in this encounter Progress Notes Nura White MD - 03/23/2014 11:57 AM EST Subjective: Patient ID: Codey Lucio is a 58 y.o. male. HPI I am seeing this patient at the request of Chioma Huynh. Pt has suffered classic right calf claudication for approximately one year. He has no rest pain. He denies a personal or family history of bleeding or clotting. Review of Systems Constitutional: Negative. HENT: Negative. Eyes: Negative. Respiratory: Positive for chest tightness and shortness of breath. Cardiovascular: Negative. Gastrointestinal: Negative. Genitourinary: Negative. Musculoskeletal: Negative. Neurological: Negative. Hematological: Negative. Psychiatric/Behavioral: Negative. Objective: Physical Exam Constitutional: He is oriented to person, place, and time. He appears well-developed. HENT: Head: Normocephalic. Eyes: Conjunctivae normal are normal. Pupils are equal, round, and reactive to light. Neck: Normal range of motion. Neck supple. Cardiovascular: Normal rate and regular rhythm. No pedal pulses on the right. Pulmonary/Chest: Effort normal. Abdominal: Soft. Musculoskeletal: Normal range of motion. Neurological: He is alert and oriented to person, place, and time. Skin: Skin is warm and dry. Psychiatric: He has a normal mood and affect. Assessment and Plan: FLORENTINO 0.7 on the right; 1.0 on the left. Pt with right SFA stenosis/occlusion. Pt does not desire intervention at present. We discussed natural history and smoking cessation. documented in this encounter Plan of Treatment Upcoming Encounters Date Type Specialty Care Team Description 02/19/2022 Infusion Hematology and Oncology 02/20/2022 Infusion Hematology and Oncology documented as of this encounter Visit Diagnoses Diagnosis PAD (peripheral artery disease) - Primar y Peripheral vascular disease, unspecified documented in this encounter Care Teams Vice President Of Software Development Relationship Specialty Start Date End Date Chioma Huynh PA PCP - General 04/10/[address] [place], [place] [id number] documented as of this encounter
--- OUTSIDE RECORDS SUMMARY | 2022-02-18 10:39 | XMS_ITS | Encounter Summary ---
:1955 Author Organization [facility] [place] [address] Care Team Providers Name Role Phone Chioma Huynh Primary Care Provider Reason for Referral Consultation (Routine) - Authorized Specialty Diagnoses / Procedures Referred By Contact Refer red To Contact Hospice and Palliative Diagnoses Primary malignant neoplasm of right upper lobe of lung Brain metastases Secondary malignant neoplasm of liver Neoplasm related pain Jem Gannon MD [facility] D R HEMATOLOGY/[place] [address] Referral ID Status Reason Start Date Expiration Visits Visits Date Requested Authorized [id number] Authorized Consult, 12/11/2021 06/09/2022 1 1 Test & Treat Reason for Visit Reason Comments Advice Only Consultation (Routine) - Authorized Specialty Diagnoses / Procedures Referred By Contact Refer red To Contact Hematology and Diagnoses 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 Chioma Huynh [facility] Hem Onc [facility] [address] [address] [place] [address] Phone: Fax: Referral ID Status Reason Start Expiration Visits Visits Date Date Requested Authorized [id number] Authorized Consult, 11/27/2021 11/27/2022 6 6 Test & Treat PCP Updated and/or Approved Encounter Details Date Type Department Care Team Description 12/11/2021 Office Visit Hematology and Jem Gannon, Extensi ve stage small cell lung cancer; Oncology at [facility] MD Brain metastases; [facility] Sec ondary malignant neoplasm of liver; Drive Neoplasm related pain; [place], [place] HEMATOLOGY/ONCOLOGY Medicati on management [id number] DEPT [phone] [place], [place] [address] (Wo rk) Social History Tobacco Use Types [...] place to sleep or slept in a care home (including now)? Sex Assigned at Date Recorded Male 12/12/2021 7:38 PM EDT documented as of this encounter Last Filed Vital Signs Vital Sign Reading Time Taken Comments Blood Pressure 116/69 12/11/2021 11:54 AM EDT Pulse 70 12/11/2021 11:54 AM EDT Temperature 36.4 ??C (97.5 ??F) 12/11/2021 11:54 AM EDT Respiratory Rate 18 12/11/2021 11:54 AM EDT Oxygen Saturation 100% 12/11/2021 11:54 AM EDT Inhaled Oxygen Concentration - - Weight 52.5 kg (115 lb 12.8 oz) 12/11/2021 11:54 AM EDT Height 172 cm (5' 7.72) 12/11/2021 11:54 AM EDT Body Mass Index 17.75 12/11/2021 11:54 AM EDT documented in this encounter Patient Instructions Patient InstructionsJem Gannon MD - 12/11/2021 12:00 PM EDT The plan is for Carboplatin/Etoposide/Atezolizumab given every 21 days for 4-6 cycles, followed by maintenance Atezolizumab. We will arrange a CT and MRI scan to assess how it is impacting your cancer approximately every 2 cycles (6 weeks). Antitumor Therapy Schedule: Atezolizumab given on Day 1 of a 21 day cycle, infuses over 30 min Carboplatin given on Day 1 of a 21 day cycle, infuses over 30 min Etoposide given on Days 1,2,3 of a 21 day cycle infused over 30-60 minutes Pre-medication to prevent nausea Plan for 5 hrs in infusion on Day 1 and 2 hrs on Days 2 and 3. Laboratory Tests: Check blood counts, kidney and liver function, thyroid function and electrolytes prior to each treatment. Provider Visits: Day 1 of each cycle. In some cases, will also schedule a clinic visit or labs on Day 14 of the cycleto check labs and assess symptoms. Possible Side Effects include, but are not limited to: Carboplatin and Etoposide: The most common side effects include decrease in blood counts (decrease in white blood cells, red blood cells and platelets resulting in increased risk of infection, anemia and bleeding), nausea and vomiting, taste changes, decreased appetite, constipation (or less likely bharat rrhea), fatigue. Less common side effects include infusion reaction, rash, mouth sores, kidney dysfunction, electrolyte abnormalities, ringing in the ears or hearing impairment. Atezolizumab: The most common potential side effects are fatigue, decreased appetite, itching, nausea, and anemia. It is important to be aware of the potential immune-mediated toxicities, including pneumonitis, colitis, hepatitis, rash, neuropathy, and endocrinopathies. Call immediately if any change in breathing, 3 or more loose or watery stools in 24 hrs (do not take immodium), rash, profound fatigue, headaches or vision changes. Prompt treatment is required with high dose steroids. Medications: the following prescriptions should be picked up before starting treatment Prochlorperazine(aka Compazine) 10 mg oral every 6 hours as needed for nausea General recommendations: Call if temperature of 100.4 or greater or signs of symptoms of an infection. It is very important to practice good hand hygiene and wash your hands frequently. Please call if your experience bleeding, new/increasing SOB, or chest pain chest pain. Call if nausea/vomiting persists despite trying your antinausea medcations. Try to stay hydrated. Water is the best option Smaller/ more frequent meals and blander foods may be better tolerated. Call if you develop mouth sores so we can discuss mouth rinses, dietary recommendations and strategies for pain management. Please tell us if you experience numbness/tingling/changes in sensation in hands or feet You should use a barrier method of protection if sexually active on days of chemotherapy and for 48 hours afterwards Try to stay active if at all possible. This helps reduce or limit fatigue. It is ok to take naps andrest if you need to. If you see a dentist, please tell them that your are receiving DENOSUMAB as part of your cancer treatment. For your PAIN: Use the OXYCODONE 5m tablets every four hours as needed when you have pain You can take two to three of these every four hours. This is your SHORT ACTING medicine or what we sometimes call ???breakthrough?? pain medicine. It kicks in over 20-30 minutes and lasts 3-4 hours. To help keep you more comfortable I am also going to prescribe a LONG acting form of pain medicine to be used IN ADDITION to the short acting The long acting pain medicine is called MORPHINE SA/SR or MS CONTIN. Please take MS CONTIN 30mg twice a day IN ADDITION TO THE SHORT ACTING tablet above. This kicks in over 2 hours and providers a continuous level of pain medicine for lasting about 10-12hours. This should not be taken ???as needed?? but rather take it morning and night to stay on top of the pain. Use the SHORT ACTING pill as needed You can also add MOTRIN (or ADVIL or IBURPOFEN) 400mg three times a day to help add another type of pain relief. Take this with food because it can be rough on your stomach. documented in this encounter Progress Notes Jem Gannon MD - 12/11/2021 12:00 PM EDT Images from the original note were not included. Thoracic Oncology [facility] [place] [address] [phone] Codey Lucio is being seen for the evaluation of lung cancer. Assessment & Plan: Codey Lucio is a 66 y.o. male patient with a past medical history significant for CAD s/p CABG 03/08, PVD degenerative disc disease of L5-S1 spine, GERD, asbestos exposure, COPD with a 50+ pk year smoking hx diagnosed with extensive stage small lung cancer with hepatic and brain metastases. I counseled the patient and his family about the diagnosis, pathology results, imaging findings, tumor staging and the implications of this information on the prognosis and the available treatment options. I explained this is an incurable malignancy where systemic treatment is the mainstay. I discussed the need to consider treatment within the context of potential risks and side effects of treatment as well as individual goals and preferences regarding quality of life. Explained that he does not have topursue treatment if she does not wish to. Standard treatment would be combination chemoimmunotherapy with carboplatin, etoposide and atezolizumab based on the IMpower 133 trial. The IMpower 133 trial demonstrated a median overall survival for patients treated with carboplatin etoposide and atezolizumab of 12.3 months compared to 10.3 months in those who did not receive immunotherapy. At 18 months 34% of patients were alive in the immunotherapy arm. In terms of prognosis, we discussed that while overall survival may vary significantly for an individual patient with metastatic (extensive stage) small cell lung cancer and it is hard to predict at the outset in any given individual, the typical survival with current treatment options is in the range of 9-18 months though less commonly it can be shorter or longer than that interval. Without treatment, survival is typically less than 6 months. Difficult situation in terms of which to prioritize treating [employer] disease vs extracranial disease butgiven his lack of neurosx and the downward trajectory and severe pain from his liver metastases feelwe should prioritize systemic therapy. We discussed the potential side effects and toxicities including fatigue, hair loss, nausea/vomiting, bowel changes, taste changes, mouth sores, neuropathy, myelosuppression with an increase risk of serious infections, need for blood transfusions, organ injury, rashes immune mediated side effects and allergic reactions among others. He would like to proceed withtreatment. Plan: - As detailed below in the patient instructions - Systemic therapy in J tracy - Start long acting opioids - Restage after 2 cycles including brain MRI - Gave them a CT Advance Care Planning packet Jem Gannon MD, MS 12/11/2021 Thoracic Oncology [facility] Patient Instructions The plan is for Carboplatin/Etoposide/Atezolizumab given every 21 days for 4-6 cycles, followed by maintenance Atezolizumab. We will arrange a CT and MRI scan to assess how it is impacting your cancer approximately every 2 cycles (6 weeks). Antitumor Therapy Schedule: Atezolizumab given on Day 1 of a 21 day cycle, infuses over 30 min Carboplatin given on Day 1 of a 21 day cycle, infuses over 30 min Etoposide given on Days 1,2,3 of a 21 day cycle infused over 30-60 minutes Pre-medication to prevent nausea Plan for 5 hrs in infusion on Day 1 and 2 hrs on Days 2 and 3. Laboratory Tests: Check blood counts, kidney and liver function, thyroid function and electrolytes prior to each treatment. Provider Visits: Day 1 of each cycle. In some cases, will also schedule a clinic visit or labs on Day 14 of the cycleto check labs and assess symptoms. Possible Side Effects include, but are not limited to: Carboplatin and Etoposide: The most common side effects include decrease in blood counts (decrease in white blood cells, red blood cells and platelets resulting in increased risk of infection, anemia and bleeding), nausea and vomiting, taste changes, decreased appetite, constipation (or less likely bharat rrhea), fatigue. Less common side effects include infusion reaction, rash, mouth sores, kidney dysfunction, electrolyte abnormalities, ringing in the ears or hearing impairment. Atezolizumab: The most common potential side effects are fatigue, decreased appetite, itching, nausea, and anemia. It is important to be aware of the potential immune-mediated toxicities, including pneumonitis, colitis, hepatitis, rash, neuropathy, and endocrinopathies. Call immediately if any change in breathing, 3 or more loose or watery stools in 24 hrs (do not take immodium), rash, profound fatigue, headaches or vision changes. Prompt treatment is required with high dose steroids. Medications: the following prescriptions should be picked up before starting treatment ??? Prochlorperazine(aka Compazine) 10 mg oral every 6 hours as needed for nausea General recommendations: ??? Call if temperature of 100.4 or greater or signs of symptoms of an infection. ??? It is very important to practice good hand hygiene and wash your hands frequently. ??? Please call if your experience bleeding, new/increasing SOB, or chest pain chest pain. ??? Call if nausea/vomiting persists despite trying your antinausea medcations. ??? Try to stay hydrated. Water is the best option ??? Smaller/ more frequent meals and blander foods may be better tolerated. ??? Call if you develop mouth sores so we can discuss mouth rinses, dietary recommendations and strategies for pain management. ??? Please tell us if you experience numbness/tingling/changes in sensation in hands or feet ??? You should use a barrier method of protection if sexually active on days of chemotherapy and for48 hours afterwards ??? Try to stay active if at all possible. This helps reduce or limit fatigue. It is ok to take napsand rest if you need to. ??? If you see a dentist, please tell them that your are receiving DENOSUMAB as part of your cancer treatment. For your PAIN: Use the OXYCODONE 5m tablets every four hours as needed when you have pain You can take two to three of these every four hours. This is your SHORT ACTING medicine or what we sometimes call ???breakthrough?? pain medicine. It kicks in over 20-30 minutes and lasts 3-4 hours. To help keep you more comfortable I am also going to prescribe a LONG acting form of pain medicine to be used IN ADDITION to the short acting The long acting pain medicine is called MORPHINE SA/SR or MS CONTIN. Please take MS CONTIN 30mg twice a day IN ADDITION TO THE SHORT ACTING tablet above. This kicks in over 2 hours and providers a continuous level of pain medicine for lasting about 10-12hours. This should not be taken ???as needed?? but rather take it morning and night to stay on top of the pain. Use the SHORT ACTING pill as needed You can also add MOTRIN (or ADVIL or IBURPOFEN) 400mg three times a day to help add another type of pain relief. Take this with food because it can be rough on your stomach. CC: KURT Murray HPI/Interval History/Subjective: Codey uLcio is a 66 y.o. male patient with a past medical history significant for CAD, subclavian bypass, PVD degenerative disc disease of L5-S1 spine, GERD, asbestos exposure, COPD with a 50+ pk year smoking hx who developed progressive abdominal pain and was noted to have an enlarged liver at his PCP's office prompting an ED evaluation and further details as below. Edenilson is accompanied by his . She notes that he is becoming increasingly weak and has lost more than 30 pounds since June. He has not very energetic. Symptoms first really started around June so came to ahead more recently with the abdominal pain. Of note he had [place] [facility] [place]. Has been on Xarelto for that since then. At that time he was able to climb a flight of stairs without difficulty but now has troublegoing up 1 flight of stairs due to the weakness. He is also become constipated. Just started using MiraLAX. He is also taking oxycodone for the abdominal pain. Takes 5 mg 4 times per day helps for a few hours but then has significant pain that breaks through. He is having occasional blurry vision. Balance is not great but he had just one fall. He had some vomiting but it is sporadic usually once a wee k. No headaches. Very poor appetite. He has received COVID vaccinations Social History/Support Network: Home situation: . Has two daughters from a prior marriage Lives [facility]. Lives [place] [address] from [place], Employment: [employer] and [employer]. Feels very poorly Tobacco use: Smoking < [...] occipital lobe metastasis measuring 1.7 cm. Pathology: 7.. Liver biopsy A - Liver Biopsy: Metastatic [...] ~100% positive Molecular Data: NA Treatment Course: No flowsheet data found. Patient Active Problem List Diagnosis Date Noted ??? Medication management 12/11/2021 ??? Primary malignant neoplasm of right upper lobe of lung 12/08/2021 ??? Brain metastases 12/08/2021 ??? Neoplasm related pain 12/08/2021 ??? Secondary malignant neoplasm of liver 11/28/2021 ??? Hyperlipidemia 03/08/2014 ??? COPD, moderate 03/08/2014 ??? Emphysema/COPD 03/08/2014 ??? H/O angina pectoris 03/08/2014 ??? Esophageal reflux 03/08/2014 ??? Arthritis 03/08/2014 ??? Cigarette smoker 03/08/2014 Allergies Allergen Reactions ??? Codeine Phosphate Medications 12/11/21 1229 Medication Sig Taking? Xarelto 2.5 mg Tablet Take 2.5 mg by mouth 2 times daily. Yes lisinopriL (Zestril) 40 mg Tablet Take 40 mg by mouth daily. Yes Trelegy Ellipta 200-62.5-25 mcg Yes nitroGLYcerin (Nitrostat) 0.4 mg Tablet, Sublingual .COMPLEX Yes albuterol (VENTOLIN HFA) 90 mcg/Actuation inhaler Yes prochlorperazine (Compazine) 10 mg Tablet Take 1 tablet by mouth every 6 hours as needed for Nausea. morphine CR (Ms Contin) 30 mg Tablet Sustained Release Take 1 tablet by mouth 2 times daily. oxyCODONE (Roxicodone) 5 mg Tablet Take 1 tablet by mouth every 6 hours as needed for Pain. nicotine (Nicoderm CQ) 21 mg/24 hr Patch 24 hr Change 1 patch on the skin daily. citalopram (CELEXA) 20 mg Tablet Take 20 mg by mouth daily. tadalafil (CIALIS) 5 mg Tablet Take 5 mg by mouth daily. metoprolol tartrate (LOPRESSOR) 25 mg tablet FLUTICASONE/SALMETEROL (ADVAIR DISKUS INHL) ESOMEPRAZOLE MAG TRIHYDRATE (NEXIUM ORAL) DOCOSAHEXANOIC ACID/EPA (FISH OIL ORAL) aspirin 81 mg EC tablet ATORVASTATIN CALCIUM (LIPITOR ORAL) I reviewed the problem list, allergies, medications, past medical history, social history and familyhistory within the EPIC encounter. Pertinent details are noted above. Pertinent positives and negative from the Review of Systems are as summarized above in the HPI. Physical Exam: Wt Readings from Last 3 Encounters: 12/11/21 52.5 kg (115 lb 12.8 oz) 11/28/21 53.5 kg (118 lb) 11/28/21 53.5 kg (118 lb) Temp Readings from Last 3 Encounters: 12/11/21 36.4 ??C (97.5 ??F) (Temporal) BP Readings from Last 3 Encounters: 12/11/21 116/69 03/23/14 148/78 Pulse Readings from Last 3 Encounters: 12/11/21 70 03/23/14 67 Body surface area is 1.58 meters squared. Wt Readings from Last 3 Encounters: 12/11/21 52.5 kg (115 lb 12.8 oz) 11/28/21 53.5 kg (118 lb) 11/28/21 53.5 kg (118 lb) KPS Score ECOG Grade Definition 90-100 0 Fully active, able to carry on all pre-disease performance without restriction 70-80 1 Restricted in physically strenuous activity but ambulatory and able to carry out work of a light or sedentary nature, e.g., light house work, office work X 50-60 2 Ambulatory and capable of all selfcare but unable to carry out any work activities; up andabout more than 50% of waking hours 30-40 3 Capable of only limited selfcare; confined to bed or chair more than 50% of waking hours 10-20 4 Completely disabled; cannot carry on any selfcare; totally confined to bed or chair Constitutional: Oriented to person, place, and time. Thin HENT: Mouth/Throat: Deferred due to COVID. Wearing a mask Eyes: No scleral icterus. Cardiovascular: Normal rate and regular rhythm. Exam reveals no friction rub. No murmur heard. Pulmonary/Chest: Effort normal. No stridor. No respiratory distress. No wheezes. No rales. Abdominal:Enlarged tender liver Musculoskeletal: Normal range of motion. No edema. Lymphadenopathy: No cervical adenopathy. Neurological: Alert and oriented to person, place, and time. CN are grossly intact and non-focal. Skin: Skin is warm and dry. No rash noted. No erythema. Psychiatric: Normal mood and affect. Behavior is normal. Thought content normal. Review of Laboratory Data: Recent Results (from the past 72 hour(s)) Comprehensive metabolic panel (non-fasting) Result Value Ref Range Glucose Lvl 104 65 - 199 mg/dL BUN 20 10 - 20 mg/dL Creatinine 0.85 0.80 - 1.50 mg/dL Sodium 140 135 - 145 mmol/L Potassium 4.1 3.5 - 5.0 mmol/L Chloride 98 98 - 107 mmol/L CO2 30 22 - 31 mmol/L Anion Gap 12 5 - 15 mmol/L Calcium 9.5 8.5 - 10.5 mg/dL Total Protein 6.8 6.1 - 8.0 g/dL Albumin 4.2 3.2 - 5.2 g/dL AST 56 (H) 0 - 39 unit/L ALT 25 0 - 55 unit/L Alk Phos 113 40 - 130 unit/L Total Bilirubin 0.6 0.2 - 1.3 mg/dL Estimated GFR 95 >=60 mL/min/1.73 m?? Magnesium Result Value Ref Range Magnesium 0.98 0.69 - 1.07 mmol/L Lactate Dehydrogenase Result Value Ref Range LDH 243 (H) 110 - 220 unit/L T4, free Result Value Ref Range Free T4 1.75 (H) 0.93 - 1.70 ng/dL TSH Result Value Ref Range TSH 1.30 0.27 - 4.20 mcIU/mL Hemogram Result Value Ref Range WBC 5.8 4.0 - 9.5 x10(3)/mcL RBC 4.22 (L) 4.58 - 5.54 x10(6)/mcL Hemoglobin 13.3 (L) 13.7 - 16.5 g/dL Hematocrit 39.2 (L) 40.5 - 48.5 % MCV 92.9 82.9 - 93.1 fL MCH 31.5 27.5 - 32.1 pg MCHC 33.9 32.0 - 35.7 g/dL Platelets 176 145 - 357 x10(3)/mcL RDWSD 44.9 36.0 - 45.0 fL RDWCV 13.2 11.4 - 13.8 % MPV 10.9 7.6 - 12.9 fL nRBC % Auto 0.0 % nRBC Abs Auto 0.000 0.000 - 0.000 x10(3)/mcL Differential, Automated Result Value Ref Range Neutrophils % 70.0 % Neutr Abs (ANC) 4.09 1.70 - 6.10 x10(3)/mcL Lymphocytes % 18.0 % Lymphocytes Abs 1.0 0.9 - 3.2 x10(3)/mcL Monocytes % 7.7 % Monocyte Abs 0.4 0.3 - 0.9 x10(3)/mcL Eosinophils % 2.9 % Eosinophils Abs 0.2 0.0 - 0.4 x10(3)/mcL Basophils % 1.2 % Basophils Abs 0.1 0.0 - 0.1 x10(3)/mcL Immature Gran % 0.20 % Laine Gran Abs 0.01 0.00 - 0.04 x10(3)/mcL Review of Imaging Data: I personally reviewed the reports and images in the studies as detailed in the oncology overview above. Review of Pathology Data: I personally reviewed the reports of the pathology as detailed in the oncology overview above. documented in this encounter Plan of Treatment Upcoming Encounters Date Type Specialty Care Team Description 02/19/2022 Infusion Hematology and Oncology 02/20/2022 Infusion Hematology and Oncology Scheduled Orders Name Type Priority Associated Diagnoses Order S chedule CBC (with Diff) Lab STAT Extensive stage small Exp ected: 12/11/2021, cell lung cancer Expires: Comprehensive metabolic Lab STAT Extensive stage s mall Expected: 12/11/2021, panel (non-fasting) cell lung cancer Expi res: 06/12/2022 Magnesium Lab STAT Extensive stage small Expect ed: 12/11/2021, cell lung cancer Expires: Magnesium Lab STAT Extensive stage small Once a week for 48 cell lung cancer Occurrences starting Brain metastases 12/11/2021 until Secondary malignant 12/12/19 23 neoplasm of liver Comprehensive metabolic Lab STAT Extensive stage s mall Once a week for 48 panel (non-fasting) cell lung ca ncer Occurrences starting Brain metastases 12/11/2021 until Secondary malignant 12/12/19 23 neoplasm of liver CBC (with Diff) Lab STAT Extensive stage small Onc e a week for 48 cell lung cancer Occurrences starting Brain metastases 12/11/2021 until Secondary malignant 12/12/19 23 neoplasm of liver TSH Lab Routine Extensive stage small Every 3 weeks for 24 cell lung cancer Occurrences starting Brain metastases 12/11/2021 until Secondary malignant 12/12/19 23 neoplasm of live r Medication management T4, free Lab Routine Extensive stage small Every 3 weeks for 24 cell lung cancer Occurrences starting Brain metastases 12/11/2021 until Secondary malignant 12/12/19 23 neoplasm of live r Medication management Scheduled Referrals Name Type Priority Associated Order Schedule Diagnoses Referral to Outpatient Referral Routine Extensive stage Order ed: Palliative Care small cell lung 2 cancer Brain metastases Secondary malignant neoplasm of live r Neoplasm related pain documented as of this encounter Results TSH (12/11/2021 1:34 PM EDT) athologist Signature TSH 1.30 0.27 - 4.20 [facility] mcIU/mL [facility] Comment: Reference Interval (mcIU/mL): Females: ??First Trimester: 0.23-3.88 ??Second Trimester: 0.22-3.90 ??Third Trimester: 0.44-4.66 Specimen Anatomical Collection Method Collection Time Receive d Time (Source) Location / / Volume Laterality Blood 12/11/2021 1:34 PM 2 1:41 EDT PM EDT Resulting Agency Comment Spec In Lab Jem Gannon MD CHEMISTRY ORDERABLES Performing Organization Address City/[facility] Code Phon e Number [address] (ABNORMAL) T4, free (12/11/2021 1:34 PM EDT) athologist Signature Free T4 1.75 (H) 0.93 - 1.70 [facility] ng/dL [facility] Comment: Reference Interval (ng/dL): Females: ??First Trimester: 0.97-1.68 ??Second Trimester: 0.77-1.51 ??Third Trimester: 0.77-1.49 Specimen Anatomical Collection Method Collection Time Receive d Time (Source) Location / / Volume Laterality Blood 12/11/2021 1:34 PM 2 1:41 EDT PM EDT Resulting Agency Comment Spec In Lab Jem Gannon MD CHEMISTRY ORDERABLES Performing Organization Address City/[facility] Phon e Number [address] (ABNORMAL) Lactate Dehydrogenase (12/11/2021 1:34 PM EDT) athologist Signature LDH 243 (H) 110 - 220 [facility] unit/L [facility] LABORATORY Specimen Anatomical Collection Method Collection Time Receive d Time (Source) Location / / Volume Laterality Blood 12/11/2021 1:34 PM 2 1:41 EDT PM EDT Resulting Agency Comment Spec In Lab Jem Gannon MD CHEMISTRY ORDERABLES Performing Organization Address City/State/ZIP [place] [address] documented in this encounter Visit Diagnoses Diagnosis Extensive stage small cell lung cancer Malignant neoplasm of upper lobe, bronch us or lung Brain metastases 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
--- OUTSIDE RECORDS SUMMARY | 2022-02-18 10:39 | XMS_ITS | Encounter Summary ---
:1955 Author Organization [facility] [place] [address] Care Team Providers Name Role Phone Chioma Huynh Primary Care Provider Encounter Details Date Type Department Care Team Description 12/11/2021 Hospital Encounter Hematology and Seconda ry malignant neoplasm of liver; [place] [facility] Extensive stage small cell l bernice cancer; [facility] [place] [phone] Social History Tobacco Use Types Packs/Day Years [...] place to sleep or slept in a fpc (including now)? Sex Assigned at Date Recorded Male 12/12/2021 7:38 PM EDT documented as of this encounter Medications at Time of Discharge Medication Sig Dispensed Refills Start Date End Date atorvastatin (Lipitor) 80 mg Once Daily 0 021 Tablet Xarelto 2.5 mg Tablet Take 2.5 mg by 0 07/31/2021 mouth 2 times daily. lisinopriL (Zestril) 40 mg Take 40 mg by 0 2021 Tablet mouth daily. Trelegy Ellipta 200-62.5-25 0 11/17/19 22 mcg prochlorperazine (Compazine) Take 1 tablet by 30 tablet 3 0 12/11/2021 10 mg Tablet mouth every 6 hours as needed for Nausea. oxyCODONE (Roxicodone) 5 mg Take 1 tablet by 90 tablet 0 Tablet mouth every 6 hours as needed for Pain. nicotine (Nicoderm CQ) 21 Change 1 patch on 28 patch 3 mg/24 hr Patch 24 hr the skin daily. citalopram (CELEXA) 20 mg Take 20 mg by 0 Tablet mouth daily. metoprolol tartrate 0 02/09/2010 (LOPRESSOR) 25 mg tablet albuterol (VENTOLIN HFA) 90 0 02/10/20 10 mcg/Actuation inhaler nitroGLYcerin (Nitrostat) .COMPLEX 0 12/19/2020 01/07/2022 0.4 mg Tablet, Sublingual morphine CR (Ms Contin) 30 Take 1 tablet by 56 tablet 0 01/07/2022 mg Tablet Sustained Release mouth 2 times daily. tadalafil (CIALIS) 5 mg Take 5 mg by 0 01/07/2022 Tablet mouth daily. FLUTICASONE/SALMETEROL 0 02/09/2010 (ADVAIR DISKUS INHL) [...] (with Diff) Lab STAT Extensive stage small 1 O ccurrences starting cell lung cancer 12/11/2021 until 12/11/2021 Comprehensive metabolic Lab STAT Extensive stage s mall 1 Occurrences starting panel (non-fasting) cell lung cancer 11/17 until 12/11/2021 Magnesium Lab STAT Extensive stage small 1 Occu rrences starting cell lung cancer 12/11/2021 until 12/11/2021 documented as of this encounter Procedures Procedure Name Priority Date/Time Associated Comments Diagnosis HEMOGRAM Routine 12/11/2021 1:34 PM Secondary malignant Re sults for this EDT neoplasm of liver procedure are in the results section. DIFFERENTIAL, Routine 12/11/2021 1:34 PM Secondary malignant R esults for this AUTOMATED EDT neoplasm of liver procedure are in the results section. HC CBC,PLT & AUTO DIFF Routine 12/11/2021 1:34 PM Secondary ma lignant EDT neoplasm of liver HC THYROID STIMULATING Routine 12/11/2021 1:[address] age Results for this HORMONE, SERUM EDT small cell lung procedure are in cancer the results Medication section. management HC FREE THYROXINE (T4) Routine 12/11/2021 1:[address] age Results for this EDT small cell lung procedure ar e in cancer the results Medication section. management HC MAGNESIUM, SERUM Routine 12/11/2021 1:34 PM Secondary malig nant Results for this EDT neoplasm of liver procedure are in the results section. HC LACTIC STAT 12/11/2021 1:34 PM Extensive stage Result s for this DEHYDROGENASE EDT small cell lung procedure a re in cancer the results section. COMPREHENSIVE Routine 12/11/2021 1:34 PM Secondary malignant R esults for this METABOLIC PANEL EDT neoplasm of liver procedu re are in (NON-FASTING) the results section. documented in this encounter Results Differential, Automated (12/11/2021 1:34 PM EDT) P athologist Signature Neutrophils % 70.0 % [facility] LABORATORY Neutr Abs (ANC) 4.09 1.70 - [facility] 6.10 [facility] x10(3)/[facility] LABORATORY Lymphocytes % 18.0 % [facility] LABORATORY Lymphocytes Abs 1.0 0.9 - 3.2 [facility] x10(3)/[facility] LABORATORY Monocytes % 7.7 % [facility] LABORATORY Monocyte Abs 0.4 0.3 - 0.9 [facility] x10(3)/[facility] LABORATORY Eosinophils % 2.9 % [facility] LABORATORY Eosinophils Abs 0.2 0.0 - 0.4 [facility] x10(3)/[facility] LABORATORY Basophils % 1.2 % [facility] LABORATORY Basophils Abs 0.1 0.0 - 0.1 [facility] x10(3)/[facility] LABORATORY Immature Gran % 0.20 % [facility] LABORATORY Comment: Immature granulocytes(IG's)percentage an d absolute count will include metamyelocytes, myelocytes, and promyelo cytes. Blood smears from CBCs yielding IG's will be scanned manually for concor dance. If this scan disagrees with the automated IG or if promyelocytes are not ed, a manual differential will be performed. Laine Gran Abs 0.01 0.00 - 0.04 x10(3)/[facility] LABORATORY Specimen Anatomical Collection Method Collection Time Receive d Time (Source) Location / / Volume Laterality Blood 12/11/2021 1:34 PM 2 1:41 EDT PM EDT Resulting Agency Comment Spec In Lab Jem Gannon MD HEMATOLOGY ORDERABLES Performing Organization Address City/State/ZIP [place] [address] (ABNORMAL) Hemogram (12/11/2021 1:34 PM EDT) Analysis Performed At Patho logist Time Signature WBC 5.8 4.0 - 9.5 [facility] x10(3)/[facility] LABORATORY RBC 4.22 (L) 4.58 - ARACELI POESAE 5.54 [facility] x10(6)/[facility] LABORATORY Hemoglobin 13.3 (L) 13.7 - [facility]I SAE 16.5 g/dL [facility] LABORATORY Hematocrit 39.2 (L) 40.5 - [facility] SAE 48.5 % [facility] LABORATORY MCV 92.9 82.9 - [facility]1 [facility] LABORATORY MCH 31.5 27.5 - [place] SAE 32.1 pg [facility] LABORATORY MCHC 33.9 32.0 - [facility] SAE 35.7 g/dL [facility] LABORATORY Platelets 176 145 - 357 [facility] x10(3)/[facility] LABORATORY RDWSD 44.9 36.0 - [facility] SAE 45.0 [facility] LABORATORY RDWCV 13.2 11.4 - [facility] SAE 13.8 % [facility] LABORATORY MPV 10.9 7.6 - 12.9 [facility] nRBC % Auto 0.0 % [facility] LABORATORY nRBC Abs Auto 0.000 0.000 - [facility] SAE 0.000 [facility] x10(3)/[facility] LABORATORY Specimen Anatomical Collection Method Collection Time Receive d Time (Source) Location / / Volume Laterality Blood 12/11/2021 1:34 PM 2 1:41 EDT PM EDT Resulting Agency Comment Spec In Lab Jem Gannon MD HEMATOLOGY ORDERABLES Performing Organization Address City/State/ZIP [place] [address] TSH (12/11/2021 1:34 PM EDT) P athologist Signature TSH 1.30 0.27 - 4.20 RAACELI QUEVEDO mcIU/mL [facility] LABORATORY Comment: Reference Interval (mcIU/mL): Females: ??First Trimester: 0.23-3.88 ??Second Trimester: 0.22-3.90 ??Third Trimester: 0.44-4.66 Specimen Anatomical Collection Method Collection Time Receive d Time (Source) Location / / Volume Laterality Blood 12/11/2021 1:34 PM 2 1:41 EDT PM EDT Resulting Agency Comment Spec In Lab Jem Gannon MD CHEMISTRY ORDERABLES Performing Organization Address City/[facility]/[place] [address] (ABNORMAL) T4, free (12/11/2021 1:34 PM EDT) P athologist Signature Free T4 1.75 (H) 0.93 - 1.[address] [facility] ng/dL [facility] LABORATORY Comment: Reference Interval (ng/dL): Females: ??First Trimester: 0.97-1.68 ??Second Trimester: 0.77-1.51 ??Third Trimester: 0.77-1.49 Specimen Anatomical Collection Method Collection Time Receive d Time (Source) Location / / Volume Laterality Blood 12/11/2021 1:34 PM 2 1:41 EDT PM EDT Resulting Agency Comment Spec In Lab Jem Gannon MD CHEMISTRY ORDERABLES Performing Organization Address City/[facility]/[place] [address] (ABNORMAL) Lactate Dehydrogenase (12/11/2021 1:34 PM EDT) P athologist Signature LDH 243 (H) 110 - 220 [facility] unit/L [facility] LABORATORY Specimen Anatomical Collection Method Collection Time Receive d Time (Source) Location / / Volume Laterality Blood 12/11/2021 1:34 PM 2 1:41 EDT PM EDT Resulting Agency Comment Spec In Lab Jem Gannon MD CHEMISTRY ORDERABLES Performing Organization Address City/[facility]/[place] [address] Magnesium (12/11/2021 1:34 PM EDT) P athologist Signature Magnesium 0.98 0.69 - 1.07 [facility] mmol/L [facility] LABORATORY Specimen Anatomical Collection Method Collection Time Receive d Time (Source) Location / / Volume Laterality Blood 12/11/2021 1:34 PM 2 1:41 EDT PM EDT Resulting Agency Comment Spec In Lab Jem Gannon MD CHEMISTRY ORDERABLES Performing Organization Address City/State/ZIP [place] [address] (ABNORMAL) Comprehensive metabolic panel (non-fasting) (12/11/2021 1:34 PM EDT) athologist Signature Glucose Lvl 104 65 - 199 [facility] mg/dL [facility] LABORATORY Comment: Diabetes: >=200 mg/dL plus symp toms BUN 20 10 - 20 mg/dL [facility] LABORATORY Creatinine 0.85 0.80 - 1.50 mg/dL [facility] LABORATORY Sodium 140 135 - 145 mmol/L [facility] LABORATORY Potassium 4.1 3.5 - 5.0 mmol/L [facility] LABORATORY Comment: Please note: ??Patients with WBC >100,00 0 may have falsely elevated Potassium levels. ??For accurate Potassium quantif ication in these patients send serum separator tube (gold top) for subsequent determinations. ??Contact the Clinical Chemistry Laboratory if there are any qu estions. Chloride 98 98 - 107 mmol/L [facility] LABORATORY CO2 30 22 - 31 mmol/L [facility] LABORATORY Anion Gap 12 5 - 15 mmol/L [facility] LABORATORY Calcium 9.5 8.5 - 10.5 mg/dL [facility] LABORAT[facility] Total Protein 6.8 6.1 - 8.0 g/dL [facility] LABORATORY Albumin 4.2 3.2 - 5.2 g/dL [facility] LABORAT[facility] AST 56 (H) 0 - 39 unit/L [facility] LABOR[facility] ALT 25 0 - 55 unit/L [facility] LABOR[facility] Alk Phos 113 40 - 130 unit/L [facility] LABORAT[facility] Total Bilirubin 0.6 0.2 - 1.3 mg/dL [facility] LABORATORY Estimated GFR 95 >=60 mL/min/1.73 m?? [facility] LABOR[facility] Comment: This patient's estimated GFR was calcula leandro using the 2020 CKD-EPI equation. The estimated GFR can vary from the isaac ured GFR by up to 30% in the absence of rapidly changing kidney function. Assess ment of the estimated GFR is not appropriate when creatinine concentratio ns are rapidly changing. For clinical situations in which a more precise estim ate of GFR is necessary, consider alternative methods of GFR estimation oconnell ch as a 24-hour urine creatinine clearance. Assignment of CKD stage 1-5 for patients with an eGFR near the transition point between stages may be based on clinical assessment of muscle mass and symptoms in addition to eGFR. Specimen Anatomical Collection Method Collection Time Receive d Time (Source) Location / / Volume Laterality Blood 12/11/2021 1:34 PM 2 1:41 EDT PM EDT Resulting Agency Comment Spec In Lab Jem Gannon MD CHEMISTRY ORDERABLES Performing Organization Address City/State/ZIP [place] [address] documented in this encounter Visit Diagnoses Diagnosis Secondary malignant neoplasm of liver Extensive stage small cell lung cancer Malignant neoplasm of upper lobe, bronch us or lung Medication management Encounter for long-term (current) use of other medications documented in this encounter Care Teams Modeling Agent Relationship Specialty Start Date End Date Chioma Huynh PA PCP - General 04/10/[address] [place] [id number] documented as of this encounter
--- OUTSIDE RECORDS SUMMARY | 2022-02-18 10:39 | XMS_ITS | Encounter Summary ---
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 Neoplasm related pain Medication management Jem Gannon MD [facility] Hem Onc Office Procedures TC PALONOSETRON HCL, 25MCG, INJECTION (ALOXI) TC FOSAPREPITANT, 1MG, INJECTION (EMEND) TC CARBOPLATIN, 50MG, INJECTION (PARAPLATIN) TC ETOPOSIDE, 10MG, INJECTION (VEPESID) J2469 Aloxi 0.25 MG - NR J1453 EMEND [address] J9022 atezolizumab (Tecentri q) 1200 MG J9045 CARBOplatin (Paraplatin) 353 MG J9181 ETOPOSIDE - VEPESID 130 MG HEMATOLOGY/[place] [phone] Fax: Referral ID Status Reason Start Date Expiration Date Visits V isits Requested Authorized [id number] Authorized 12/17/2021 12/13/2022 99 99 Encounter Details Date Type Department Care Team Description 12/18/2021 Infusion Hematology Oncology at [facility] dication management; [facility] Primary malignant neoplasm o f right upper lobe of lung; [address] Neoplasm related pain; [facility] [place] [phone] Secondary malignant neoplasm of liver [phone] Social History Tobacco Use Types Packs/Day Years [...] Sign Reading Time Taken Comments Blood Pressure 113/56 12/18/2021 8:42 AM EDT Pulse 56 12/18/2021 8:42 AM EDT Temperature 36.6 ??C (97.8 ??F) 12/18/2021 8:42 AM EDT Respiratory Rate 16 12/18/2021 8:42 AM EDT Oxygen Saturation 97% 12/18/2021 8:42 AM EDT Inhaled Oxygen Concentration - - Weight 54.4 kg (120 lb) 12/18/2021 8:42 AM EDT Height 172 cm (5' 7.72) 12/18/2021 8:42 AM EDT Body Mass Index 18.4 12/18/2021 8:42 AM EDT documented in this encounter Progress Notes Meg Maria RN - 12/18/2021 8:30 AM EDT INFUSION THERAPY ADMINISTRATION NOTES DIAGNOSIS: SCLC CYCLE #: Cycle 1 Day 2 REASON FOR VISIT: first cycle of chemotherapy SUBJECTIVE Codey offers no complaints today. He met with Dr. Gannon on 12/11 for chemo teach. OBJECTIVE LAB DATA: [place] [facility] reviewed and adequate for treatment today. IV ACCESS: Rt arm PIV yesterday BLOOD RETURN: yes ANY S/S OF INFECTION/EXTRAVASATIONS: none IV FLUSHED WITH: NS IV DISCONTINUED: remains in place for C1D3 tomorrow Pre administration: Chemotherapy orders independently verified for drug name, route, and dosage per patient's height, weight and BSA by Meg Valles RN and pharmacist onsite REACTIONS (DESCRIPTION, TIME, INTERVENTION AND EFFECTIVENESS) none ASSESSMENT Codey was awake, alert and he tolerated treatment well. Reinforced chemo teaching points. Pt. chemo teaching instructions included: During clinic hours (8am-5pm Friday-Friday): pt. can call [phone] with questions or concerns. After clinic hours (5pm-8am Friday-Friday and weekends) pt can call [phone] and ask for the operating systems programmer/oncologist pay station department manager. Codey Lucio verbalized understanding of potential chemotherapy side effects and home care including but not limited to- handwashing to prevent infection, signs and symptoms of low blood counts (fever, fatigue, bleeding), to call with a fever of 100.4 or greater, any significant constipation/diarrhea, importance of nutrition and fluid intake (drinking at least 32-64 ounces of non-caffeinated beverages/day), mouth care. Codey Lucio verbalized understanding of how to take prescription medications given for home use after chemotherapy. PLAN Return to clinic tomorrow for C1D3 documented in this encounter Plan of Treatment [...] Rate Site dexAMETHasone (Decadron) tablet 10 Given 12/18/2021 8:54 AM EDT 10 mg mg 10 mg, Oral, ONCE, 1 dose, On Fri12/18/21 at 0830, Administer prior to chemotherapy, Routine etoposide (Vepesid) 126.5 mg in New Bag 12/18/2021 8:59 AM EDT 126.5 mg 506.3 mL/hr sodium chloride 0.9% Non-PVC 506.33 mL infusion 126.5 mg (rounded from 126.4 mg = 80 mg/m2/dose ? 1.58 m2 Treatment Plan BSA from Recorded weight), Intravenous, ONCE, 1 dose, On Fri12/18/21 at 0930, Administer over 60 Minutes, Warning Vesicant/Irritant Medication sodium chloride 0.9% infusion New Bag 12/18/2021 8:40 AM EDT 200 mL/hr 200 mL/hr 200 mL/hr, Intravenous, CONTINUOUS, Starting on Fri12/18/21 at 0830, Until Fri12/18/21 at 1219 documented in this encounter Care Teams Roll Machine Operator Relationship Specialty Start Date End Date Chioma Huynh PA PCP - General 04/10/[address] [place], [place] [id number] documented as of this encounter
--- OUTSIDE RECORDS SUMMARY | 2022-02-18 10:39 | XMS_ITS | Encounter Summary ---
:1955 Author Organization [facility] [place] [address] Care Team Providers Name Role Phone Chioma Huynh Primary Care Provider Encounter Details Date Type Department Care Team Description 01/04/2022 Telephone Hematology Oncology at [facility], Olivia Baird RN [address] [phone] Social History Tobacco Use Types Packs/Day Years [...] place to sleep or slept in a [place] (including now)? Sex Assigned at Date Recorded Male 12/12/2021 7:38 PM EDT documented as of this encounter Miscellaneous Notes Telephone Encounter - Olivia White RN - 01/04/2022 11:30 AM EDT Call to Palliative Care office to see if they had set up a consult with Denis. SCHAFER requesting a call back. documented in this encounter Plan of Treatment Upcoming Encounters Date Type Specialty Care Team Description 02/19/2022 Infusion Hematology and Oncology 02/20/2022 Infusion Hematology and Oncology documented as of this encounter Visit Diagnoses Not on filedocumented in this encounter Care Teams Train Control Technician Relationship Specialty Start Date End Date Chioma Huynh PA PCP - General 04/10/[address] [place], [place] [id number] documented as of this encounter
--- OUTSIDE RECORDS SUMMARY | 2022-02-18 10:39 | XMS_ITS | Encounter Summary ---
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 Neoplasm related pain Medication management Jem Gannon MD [facility] Hem Onc Office Procedures TC PALONOSETRON HCL, 25MCG, INJECTION (ALOXI) TC FOSAPREPITANT, 1MG, INJECTION (EMEND) TC CARBOPLATIN, 50MG, INJECTION (PARAPLATIN) TC ETOPOSIDE, 10MG, INJECTION (VEPESID) J2469 Aloxi 0.25 MG - NR J1453 EMEND [address] J2025 atezolizumab (Tecentri q) 1200 MG J9045 CARBOplatin (Paraplatin) 353 MG J9181 ETOPOSIDE - VEPESID 130 MG HEMATOLOGY/ONCOLOGY DEPT [place], [place] [phone] Fax: Referral ID Status Reason Start Date Expiration Date Visits V isits Requested Authorized [id number] Authorized 12/17/2021 12/13/2022 99 99 Encounter Details Date Type Department Care Team Description 12/17/2021 Infusion Hematology On[facility] at [facility]; [facility] Primary malignant neoplasm o f right upper lobe of lung; [address] Neoplasm related pain; [place], [place] [phone] Secondary malignant neoplasm of liver [phone] Social History Tobacco Use Types Packs/Day Years [...] place to sleep or slept in a penitentiary (including now)? Sex Assigned at Date Recorded Male 12/12/2021 7:38 PM EDT documented as of this encounter Last Filed Vital Signs Vital Sign Reading Time Taken Comments Blood Pressure 130/60 12/17/2021 9:01 AM EDT Pulse 58 12/17/2021 9:01 AM EDT Temperature 36.8 ??C (98.2 ??F) 12/17/2021 9:01 AM EDT Respiratory Rate 16 12/17/2021 9:01 AM EDT Oxygen Saturation 99% 12/17/2021 9:01 AM EDT Inhaled Oxygen Concentration - - Weight 53.7 kg (118 lb 6.4 oz) 12/17/2021 9:01 AM EDT Height 172 cm (5' 7.72) 12/17/2021 9:01 AM EDT Body Mass Index 18.15 12/17/2021 9:01 AM EDT documented in this encounter Progress Notes Fina Glasgow RN - 12/17/2021 9:00 AM EDT INFUSION THERAPY ADMINISTRATION NOTES DIAGNOSIS: SCLC CYCLE #: Cycle 1 Day 1 REASON FOR VISIT: first cycle of chemotherapy SUBJECTIVE Codey offers no complaints today. He met with Dr. Gannon on 12/11 for chemo teach. OBJECTIVE LAB DATA: completed on 12/11/21 at [facility], reviewed and adequate for treatment today. IV ACCESS: Rt arm PIV BLOOD RETURN: yes ANY S/S OF INFECTION/EXTRAVASATIONS: none IV FLUSHED WITH: NS IV DISCONTINUED: remains in place for C1D2 tomorrow Pre administration: Chemotherapy orders independently verified for drug name, route, and dosage per patient's height, weight and BSA by Gina Sullivan RN and pharmacist onsite REACTIONS (DESCRIPTION, TIME, INTERVENTION AND EFFECTIVENESS) none ASSESSMENT Codey was awake, alert and he tolerated treatment well. Reinforced chemo teaching points. Pt. chemo teaching instructions included: During clinic hours (8am-5pm Friday-Friday): pt. can call [phone] with questions or concerns. After clinic hours (5pm-8am Friday-Friday and weekends) pt can call [phone] and ask for the checker/stocker/oncologist court collections officer. Codey Lucio verbalized understanding of potential chemotherapy [...] chemotherapy. PLAN Return to clinic tomorrow for C1D2 documented in this encounter Plan of Treatment [...] Dose Rate Site atezolizumab (Tecentriq) New Bag 12/17/2021 10:19 AM 1,200 mg 27 0 mL/hr 1,200 mg in sodium chloride EDT 0.9% 270 mL infusion 1,200 mg, Intravenous, ONCE, 1 dose, On Fri12/17/21 at 1030, Administer over 60 Minutes, NO DOSE ADJUSTMENTS. Give initial dose over 60 minutes. If the initial dose is tolerated, all subsequent doses can be given over 30 minutes., This agent is restricted to outpatient use. Is this drug being given as an outpatient? Yes CARBOplatin (Paraplatin) 350 mg in New Bag 12/17/2021 11:44 AM EDT 350 mg 570 mL/hr dextrose 5% 285 mL infusion 350 mg (rounded from 350.4 mg, Target AUC = 4), Intravenous, ONCE, 1 dose, On Fri12/17/21 at 1030, Administer over 30 Minutes, Warning Vesicant/Irritant Medication dexAMETHasone (Decadron) tablet 10 mg Given 12/17/2021 9:31 AM EDT 10 mg 10 mg, Oral, ONCE, 1 dose, On Fri12/17/21 at 0930, Administer prior to chemotherapy, Routine etoposide (Vepesid) 126.5 mg in New Bag 12/17/2021 12:29 PM ED T 126.5 mg 506.3 mL/hr sodium chloride 0.9% Non-PVC 506.33 mL infusion 126.5 mg (rounded from 126.4 mg = 80 mg/m2/dose ? 1.58 m2 Treatment Plan BSA from Recorded weight), Intravenous, ONCE, 1 dose, On Fri12/17/21 at 1030, Administer over 60 Minutes, Warning Vesicant/Irritant Medication fosaprepitant (Emend) 150 mg in New Bag 12/17/2021 9:37 AM EDT 150 mg 310 mL/hr sodium chloride 0.9% 155 mL infusion 150 mg, Intravenous, at 310 mL/hr, ONCE, 1 dose, On Fri12/17/21 at 0930, Routine palonosetron (Aloxi) (0.05 mg/mL) injection Given 05/2021 9:35 AM EDT 0.25 mg 0.25 mg 0.25 mg, Intravenous, ONCE, 1 dose, On Fri12/17/21 at 0930, Administer over 30 seconds., Routine sodium chloride 0.9% infusion New Bag 12/17/2021 9:38 AM EDT 200 mL/hr 200 mL/hr 200 mL/hr, Intravenous, CONTINUOUS, Starting on Fri12/17/21 at 0930, Until Fri12/17/21 at 1738 documented in this encounter Care Teams New Account Interviewer Relationship Specialty Start Date End Date Chioma Huynh PA PCP - General 04/10/[address] [place] [address] documented as of this encounter
--- OUTSIDE RECORDS SUMMARY | 2022-02-18 10:39 | XMS_ITS | Encounter Summary ---
:1955 Author Organization [facility] [place] [address] Care Team Providers Name Role Phone Chioma Huynh Primary Care Provider Encounter Details Date Type Department Care Team Description 01/07/2022 Notes Only [facility] OFFICE OF CARE [address] [place] [phone] Social History Tobacco Use Types Packs/Day Years [...] to sleep or slept in a senior care (including now)? Sex Assigned at Date Recorded Male 12/12/2021 7:38 PM EDT documented as of this encounter Progress Notes Mercy Nixon MSW - 01/07/2022 2:10 PM EDT Follow up with pt during his infusion visit. Pt indicated he is managing day to day at home. He feels like he has a bit more interest and energy. His continues as his primary support. He hopes shewill return to work at some point soon. He did not identify any new needs today. Offered support. Reminded pt of [facility] availability and contact information. Will continue to follow for support and resources. Brief assessment Supportive Counseling documented in this encounter Plan of Treatment Upcoming Encounters Date Type Specialty Care Team Description 02/19/2022 Infusion Hematology and Oncology 02/20/2022 Infusion Hematology and Oncology documented as of this encounter Visit Diagnoses Not on filedocumented in this encounter Care Teams Heel Shaper Relationship Specialty Start Date End Date Chioma Huynh PA PCP - General 04/10/[address] [place] [address] documented as of this encounter
--- OUTSIDE RECORDS SUMMARY | 2022-02-18 10:39 | XMS_ITS | Encounter Summary ---
:1955 Author Organization [facility] [place] [address] Care Team Providers Name Role Phone Chioma Huynh Primary Care Provider Encounter Details Date Type Department Care Team Description 11/07/2021 [facility] [place] [address] Social History Tobacco Use Types Packs/Day [...] place to sleep or slept in a correction (including now)? Sex Assigned at Date Recorded Male 12/12/2021 7:38 PM EDT documented as of this encounter Plan of Treatment Upcoming Encounters Date Type Specialty Care Team Description 02/19/2022 Infusion Hematology and Oncology 02/20/2022 Infusion Hematology and Oncology documented as of this encounter Visit Diagnoses Not on filedocumented in this encounter Care Teams Community Service Director Relationship Specialty Start Date End Date Chioma Huynh PA PCP - General 04/10/[address] [place] [address] documented as of this encounter
--- OUTSIDE RECORDS SUMMARY | 2022-02-18 10:39 | XMS_ITS | Encounter Summary ---
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 Neoplasm related pain Medication management Jem Gannon MD [facility] Hem Onc Office Procedures TC PALONOSETRON HCL, 25MCG, INJECTION (ALOXI) TC FOSAPREPITANT, 1MG, INJECTION (EMEND) TC CARBOPLATIN, 50MG, INJECTION (PARAPLATIN) TC ETOPOSIDE, 10MG, INJECTION (VEPESID) J2469 Aloxi 0.25 MG - NR J1453 EMEND [address] J8833 atezolizumab (Tecentri q) 1200 MG J9045 CARBOplatin (Paraplatin) 353 MG J9181 ETOPOSIDE - VEPESID 130 MG HEMATOLOGY/ONCOLOGY DEPT [place], [place] [phone] Fax: Referral ID Status Reason Start Date Expiration Date Visits V isits Requested Authorized [id number] Authorized 12/17/2021 12/13/2022 99 99 Encounter Details Date Type Department Care Team Description 01/07/2022 Infusion Hematology Oncology at [facility] dication management; [facility] Primary malignant neoplasm o f right upper lobe of lung; [address] Neoplasm related pain; [facility], [place] [phone] Secondary malignant neoplasm of liver [phone] Social History Tobacco Use Types Packs/Day Years [...] encounter Progress Notes Fina Glasgow RN - 01/07/2022 11:30 AM EDT INFUSION THERAPY ADMINISTRATION NOTES DIAGNOSIS: SCLC CYCLE #: Cycle 2, Day 1 - Atezolizumab, Carboplatin, Etoposdie REASON FOR VISIT: To receive chemotherapy as planned. SUBJECTIVE: Codey offers no complaints today, he met with Dr. Gannon prior to infusion, ready for treatment. OBJECTIVE: LAB DATA: 01/07/22 - WBC - 3.74, H/H - 11.7/34.2, Plt Ct - 239, ANC - 2.28, Potassium 2.8, BUN/Cr - 13/0.8, CA ++ - 8.8, MG++ - 2.1 IV ACCESS: Left arm PIV Pre administration: Chemotherapy orders independently verified for drug name, route, and dosage per patient's height, weight and BSA by Fina Glasgow, XU and Staff Pharmacist(s). REACTIONS (DESCRIPTION, TIME, INTERVENTION AND EFFECTIVENESS) none ASSESSMENT: Codey was awake, alert and tolerated treatment well. IV and oral potassium administered. PIV left inplace for treatment tomorrow. PLAN: Return to clinic tomorrow for C2D2. documented in this encounter Plan of Treatment [...] Dose Rate Site atezolizumab (Tecentriq) New Bag 01/07/2022 1:42 PM EDT 1,200 mg 540 mL/hr 1,200 mg in sodium chloride 0.9% 270 mL infusion 1,200 mg, Intravenous, ONCE, 1 dose, On 01/07/22 at 1345, Administer over 30 Minutes, NO DOSE ADJUSTMENTS. Give initial dose over 60 minutes. If the initial dose is tolerated, all subsequent doses can be given over 30 minutes., This agent is restricted to outpatient use. Is this drug being given as an outpatient? Yes CARBOplatin (Paraplatin) 350 mg in New Bag 01/07/2022 2:24 PM EDT 350 mg 570 mL/hr dextrose 5% 285 mL infusion 350 mg (rounded from 350.4 mg, Target AUC = 4), Intravenous, ONCE, 1 dose, On Fri01/07/22 at 1345, Administer over 30 Minutes, Warning Vesicant/Irritant Medication dexAMETHasone (Decadron) tablet 10 mg Given 01/07/2022 12:45 PM EDT 10 mg 10 mg, Oral, ONCE, 1 dose, On Fri01/07/22 at 1245, Administer prior to chemotherapy, Routine etoposide (Vepesid) 126.5 mg in New Bag 01/07/2022 3:04 PM EDT 126.5 mg 506.3 mL/hr sodium chloride 0.9% Non-PVC 506.33 mL infusion 126.5 mg (rounded from 126.4 mg = 80 mg/m2/dose ? 1.58 m2 Treatment Plan BSA from Recorded weight), Intravenous, ONCE, 1 dose, On Fri01/07/22 at 1345, Administer over 60 Minutes, Warning Vesicant/Irritant Medication fosaprepitant (Emend) 150 mg in New Bag 01/07/2022 12:55 PM ED T 150 mg 310 mL/hr sodium chloride 0.9% 155 mL infusion 150 mg, Intravenous, at 310 mL/hr, ONCE, 1 dose, On Fri01/07/22 at 1245, Routine palonosetron (Aloxi) (0.05 mg/mL) injection Given 12/18 12:49 PM EDT 0.25 mg 0.25 mg 0.25 mg, Intravenous, ONCE, 1 dose, On Fri01/07/22 at 1245, Administer over 30 seconds., Routine potassium chloride 20 mEq in New Bag 01/07/2022 2:24 PM EDT 20 mEq 100 mL/hr sterile water 100 mL infusion 20 mEq, Intravenous, ONCE, 1 dose, On Fri01/07/22 at 1230, Administer over 60 Minutes, Warning Vesicant/Irritant Medication potassium chloride ER (K-Dur/Klor-Con) Given 01/07/2022 12:45 PM EDT 40 mEq tablet 40 mEq 40 mEq, Oral, ONCE, 1 dose, On Fri01/07/22 at 1230, Routine sodium chloride 0.9% infusion New Bag 01/07/2022 12:50 PM EDT 200 mL/hr 200 mL/hr 200 mL/hr, Intravenous, CONTINUOUS, Starting on Fri01/07/22 at 1245, Until Fri01/07/22 at 1824 documented in this encounter Care Teams Track And Field Coach Relationship Specialty Start Date End Date Chioma Huynh PA PCP - General 04/10/[address] [place] [phone] documented as of this encounter
--- OUTSIDE RECORDS SUMMARY | 2022-02-18 10:39 | XMS_ITS | Encounter Summary ---
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 Chioma Huynh, [facility] [place] Hem Onc 3k Oncology PA [phone] [place] [phone] Phone: Fax: Referral ID Status Reason Start Expiration Visits Visits Date Date Requested Authorized [id number] Authorized Consult, 11/27/2021 11/27/2022 6 6 Test & Treat PCP Updated and/or Approved Encounter Details Date Type Department Care Team Description 11/27/2021 Transcribe Orders eDH Incoming Chioma Huynh ma lignant neuroendocrine tumors; Referrals KURT Cannon Other secondary neuroendocrine tumors [phone] [place] [phone] Social History Tobacco Use Types Packs/Day Years [...] S chedule Referral to Outpatient Referral Routine Other Malignant Order ed: Hematology and Neuroendocrine T umors 11/27/2021 Oncology Other Secondary Neuroendocrine Tumors documented as of this encounter Visit Diagnoses Diagnosis 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
--- OUTSIDE RECORDS SUMMARY | 2022-02-18 10:39 | XMS_ITS | Encounter Summary ---
:1955 Author Organization [facility] [place] [address] Care Team Providers Name Role Phone Chioma Huynh Primary Care Provider Encounter Details Date Type Department Care Team Description 12/17/2021 Notes Only [facility] OFFICE OF CARE [address] [place], [place] [phone] Social History Tobacco Use Types Packs/Day Years [...] as of this encounter Progress Notes [facility]cy Nixon, [employer] SCIENTIST - 12/17/2021 9:38 AM EDT Reason for Referral: Brief assessment of social and emotional needs. Met with pt during his first infusion to introduce myself and role of social media specialist to assess/address barriers to getting to and through treatments; address support needs and connect with community services and resources as needed. SDOH: screened positive for money concerns, food concerns and isolation. Pt financial concerns were related to cost of his burial. He and his are going to begin to look into this. He denied and food security issues and feels supported by his family. Family/Social Supports: Pt identified his Kasandra as his primary support. He has 2 daughters from his first marriage. His has one son. None of the children are local bu t they visited this past weekend. Living Situation/Daily Activities/Transportation: Pt indicated he is able to manage his daily choresand activities. He lives over one hour from this facility. He does not expect any issues with transportation. Work/Finances/Insurance: Pt is retired from construction work. His still works. He did not indicated any concerns re their finances and stated they are able to manage their financial obligations. He has [facility] Managed Medicare for insurance. Advance Directives: Pt has the information and is going to be working on his advance directive. Utilization of Community Resources: None at this time. Adjustment to Illness/Mental Health Concerns: Pt indicated he is coping the best he can. He indicated the same for his . Their children were just up for a visit this past weekend. They maintain regular contact with pt. Pt indicated he has good local supports. Offered support. Identified Needs: Pt did not identify any specific needs. He did direct me to talk to his but she was not in waiting room when [employer] went out. Referrals: None at this time. Social Work Interventions: Brief assessment Supportive Counseling Plan: Informed pt of [employer] availability and contact information. Will follow to assess/address psychosocial needs. MARA Mcfarlane, CERTIFIED RECREATIONAL THERAPIST, OSW-C Research Archaeologist [facility] documented in this encounter Plan of Treatment Upcoming Encounters Date Type Specialty Care Team Description 02/19/2022 Infusion Hematology and Oncology 02/20/2022 Infusion Hematology and Oncology documented as of this encounter Visit Diagnoses Not on filedocumented in this encounter Care Teams Forms Analysis Manager Relationship Specialty Start Date End Date Chioma Huynh PA PCP - General 04/10/[address] [place] [address] documented as of this encounter
--- OUTSIDE RECORDS SUMMARY | 2022-02-18 10:39 | XMS_ITS | Encounter Summary ---
:1955 Author Organization [facility] [place] [address] Care Team Providers Name Role Phone Chioma Huynh Primary Care Provider Reason for Referral Diagnostic Test (Routine) - Closed Specialty Diagnoses / Procedures Referred By Contact Refer red To Contact Radiology Diagnoses Secondary malignant neoplasm of liver Jem Gannon MD [facility] Rad Mri Procedures MRI Brain wwo Contrast (Generic) [facility] [address] Mercado [facility] [place]EMATOLOGY[place] [address] [place] [address] Referral ID Status Reason Start Date Expiration Date Visits V isits Requested Authorized [id number] Closed Specialty 11/28/2021 05/31/2023 1 1 Service Requested Reason for Visit Diagnostic Test (Routine) - Closed Specialty Diagnoses / Procedures Referred By Contact Refer red To Contact Radiology Diagnoses Secondary malignant neoplasm of liver Jem Gannon MD [facility] Rad Mri Procedures MRI Brain wwo Contrast (Generic) [facility] [address] Mercado [facility] HEMATOLOGY/[place] [address] [place] [address] Referral ID Status Reason Start Date Expiration Date Visits V isits Requested Authorized [id number] Closed Specialty 11/28/2021 05/31/2023 1 1 Service Requested Encounter Details Date Type Department Care Team Description 12/06/2021 Hospital En[place] [facility] [place] [facility] [place]em Gannon, Secondary malignant [facility] [place] [address] HEMATOLOGY/ONCOLOG [phone] Y DEPT [place], [place] [address] Social History Tobacco Use Types [...] Name Priority Date/Time Associated Diagnosis Comme nts MRI BRAIN WWO Routine 12/06/2021 8:22 AM Secondary malignant R esults for this CONTRAST (GENERIC) EDT neoplasm of liver proc edure are in the results section. documented in this encounter Results MRI Brain wwo Contrast (Generic) (12/06/2021 8:22 [...] who have questions please contact the health weekend caregiver that requested your imaging first. ? Electronically signed by: DEDRA Schumacher [facility] ([phone]), at 12/06/2021 10:41 AM Narrative 12/06/2021 10:41 AM EDT EXAMINATION: MRI BRAIN WWO CONTRAST (GENERIC) CLINICAL HISTORY: Small cell lung cancer , staging 66 yo with newly diagnosed small cell noreen ng cancer (liver mets) Initial staging to exlcude BOOK SEWING MACHINE OPERATOR metastases TECHNIQUE: MRI of the brain was [...] cancer (liver mets) Initial staging to exlcude BOOK SEWING MACHINE OPERATOR metastases TECHNIQUE: MRI of the brain was [...] ho have questions please contact the health weekend caregiver that requested your imaging first. Electronically signed by: Freddy Varghese [facility] ([phone]), at 12/06/2021 10:41 AM Jem Gannon MD IMG MRI ORDERABLES documented in this encounter Visit Diagnoses Diagnosis Secondary malignant neoplasm of liver documented in this encounter Administered Medications Inactive Administered Medications - up to 3 most recent administrations Medication Order MAR Action Action Date Dose Rate Site gadoterate meglumine (Dotarem) Given 12/06/2021 7:57 AM EDT 11 m Ls (0.5 mMol/mL) injection solution 0-100 mL 0-100 mL, Intravenous, ONCE PRN, 1 dose, Starting on [place] 12/06/21 at 0744, Until [place] 12/06/21 at 0757, Per Protocol, Radiology Contrast, Routine documented in this encounter Care Teams Private Pilot Relationship Specialty Start Date End Date Chioma Huynh PA PCP - General 04/10/[address] [place], [place] [phone] documented as of this encounter
--- OUTSIDE RECORDS SUMMARY | 2022-02-18 10:39 | XMS_ITS | Encounter Summary ---
:1955 Author Organization [facility] [place] [address] Care Team Providers Name Role Phone Chioma Huynh Primary Care Provider Encounter Details Date Type Department Care Team Description 01/22/2018 [facility] [place] [address] Social History Tobacco Use Types Packs/Day [...] Sig Dispensed Refills Start Date End Date citalopram (CELEXA) 20 mg Take 20 mg by 0 Tablet mouth daily. metoprolol tartrate 0 02/09/2010 (LOPRESSOR) 25 mg tablet albuterol (VENTOLIN HFA) 90 0 02/10/20 10 mcg/Actuation inhaler tadalafil (CIALIS) 5 mg Take 5 mg [...] Procedure Name Priority Date/Time Associated Diagnosis Comme [facility] SURGICAL PATHOLOGY Routine 01/22/2018 12:00 PM Phyllis ho for this REPORT EDT procedure are i n the results section. documented in this encounter Results Surgical Pathology Report (01/22/2018 12:00 PM EDT) Component Value Ref Test Analysis Performed At [facility] Method Time Signature Surgical [id number] ? Location: [facility] Report The signing pathologist has (i) examined the relevant preparation(s) for the MEMORIAL specimen(s) and (ii) rendered or confirmed the diagnosis(es) . HOSPITAL LABORATORY . ?Surgic al Pathology DIAGNOSIS A - Ileum, biopsy: Ileal mucosa within normal limits. B - Polyp at 28 cm, polypectomy: Hyperplastic polyp. Electronically signed by: ??Pedrito Garcia MD Verified: ??01/29/2018 ?Pathologist Performed at: ??-[facility] Dept. of Pathology, [place], [place] CLINICAL INFORMATION Specimen Submitted: A - Ileal bx B - 3 mm polyp @ 28 cm Clinical History and Diagnosis: History of polyps, history of weight loss Referring Identifier: ??[id number] SPECIMEN PROCESSING A - Labeled/Fixative: Ileal biopsy, formalin. Quantity/Size: Three, ranging from 0.4-0.6 cm. Tissue Description: Soft, jason-pink and jason-yellow tissue. Sections/Processing: (T1) B - Labeled/Fixative: 3 mm polyp at 28 cm, formalin. Quantity/Size: Two, 0.4 and 0.5 cm. Tissue Description: Soft, jason-pink polypoid tissue. Sections/Processing: (T1) ??apb Specimen (Source) Anatomical Collection Method Collection Time Re ceived Time Location / / Volume Laterality 01/22/2018 12:00 PM EDT Resulting Agency Comment Spec In Lab / WKS Leah Santos MD PATHOLOGY/CYTOLOGY ORDERABLE S Performing Organization Address City/State/[place] [address] [facility] [address] documented in this encounter Visit Diagnoses Not on filedocumented in this encounter Care Teams Stonework Tracer Relationship Specialty Start Date End Date Chioma Huynh PA PCP - General 04/10/[address] [place] [address] documented as of this encounter
--- OUTSIDE RECORDS SUMMARY | 2022-02-18 10:39 | XMS_ITS | Encounter Summary ---
:1955 Author Organization [facility] [place] [address] Care Team Providers Name Role Phone Chioma Huynh Primary Care Provider Reason for Referral Diagnostic Test (Routine) - Closed Specialty Diagnoses / Procedures Referred By Contact Refer red To Contact Radiology Diagnoses Secondary malignant neoplasm of liver Jem Gannon MD [facility] Rad Mri Procedures MRI Brain wwo Contrast (Generic) [facility] HEMATOLOGY/[place] [address] [place] [address] Referral ID Status Reason Start Date Expiration Date Visits V isits Requested Authorized [id number] Closed Specialty 11/28/2021 05/31/2023 1 1 Service Requested Diagnostic Test (Routine) - Closed Specialty Diagnoses / Procedures Referred By Contact Refer red To Contact Radiology Diagnoses Secondary malignant neoplasm of liver Jem Gannon MD [facility] Rad Ct Scan Procedures CT Chest w Contrast [facility] HEMATOLOGY/[place] [address] [place] [address] Referral ID Status Reason Start Date Expiration Date Visits V isits Requested Authorized [id number] Closed Specialty 11/28/2021 05/31/2023 1 1 Service Requested Encounter Details Date Type Department Care Team Description 11/28/2021 Orders Only Hematology and Jem Gannon, Seconda ry malignant Oncology at [facility] neoplasm of liver [facility] [address] [place] HEMATOLOGY/ONCOLOGY [address] DEPT [phone] [place], [place] [address] (Wo rk) Social History Tobacco [...] place to sleep or slept in a chcf (including now)? Sex Assigned at Date Recorded Male 12/12/2021 7:38 PM EDT documented as of this encounter Plan of Treatment Upcoming Encounters Date Type Specialty Care Team Description 02/19/2022 Infusion Hematology and Oncology 02/20/2022 Infusion Hematology and Oncology documented as of this encounter Results Magnesium (12/11/2021 1:34 PM EDT) athologist Signature Magnesium 0.98 0.69 - 1.07 [facility] mmol/L [facility] Specimen Anatomical Collection Method Collection Time Receive d Time (Source) Location / / Volume Laterality Blood 12/11/2021 1:34 PM 2 1:41 EDT PM EDT Resulting Agency Comment Spec In Lab Jem Gannon MD CHEMISTRY ORDERABLES Performing Organization Address City/State/[place] [address] (ABNORMAL) Comprehensive metabolic panel (non-fasting) (12/11/2021 1:34 PM EDT) athologist Signature Glucose Lvl 104 65 - 199 [facility] mg/dL [facility] Comment: Diabetes: >=200 mg/dL plus symp toms BUN 20 10 - 20 mg/dL [facility] Creatinine 0.85 0.80 - 1.50 mg/dL [facility] Sodium 140 135 - 145 mmol/L [facility] Potassium 4.1 3.5 - 5.0 mmol/L [facility] Comment: Please note: ??Patients with WBC >100,00 0 may have falsely elevated Potassium levels. ??For accurate Potassium quantif ication in these patients send serum separator tube (gold top) for subsequent determinations. ??Contact the Clinical Chemistry Laboratory if there are any qu estions. Chloride 98 98 - 107 mmol/L [facility] CO2 30 22 - 31 mmol/L [facility] Anion Gap 12 5 - 15 mmol/L [facility] Calcium 9.5 8.5 - 10.5 mg/dL [facility] Total Protein 6.8 6.1 - 8.0 g/dL [facility] Albumin 4.2 3.2 - 5.2 g/dL [facility] AST 56 (H) 0 - 39 unit/L [facility] ALT 25 0 - 55 unit/L [facility] Alk Phos 113 40 - 130 unit/L [facility] Total Bilirubin 0.6 0.2 - 1.3 mg/dL [facility] Estimated GFR 95 >=60 mL/min/1.73 m?? [facility] Comment: This patient's estimated GFR was [...] Organization Address City/State/ZIP Code Phon e Number [place] [phone] LAB[address] MRI Brain wwo Contrast [...] who have questions please contact the health college and career counselor that requested your imaging first. ? Electronically signed by: Freddy Varghese [facility] ([phone]), at 12/06/2021 10:41 AM Narrative 12/06/2021 10:41 AM EDT EXAMINATION: MRI BRAIN WWO CONTRAST (GENERIC) CLINICAL HISTORY: Small cell lung cancer , staging 66 yo with newly diagnosed small cell noreen ng cancer (liver mets) Initial staging to exlcude ANTISQUEAK FILLER metastases TECHNIQUE: MRI of the brain was [...] cancer (liver mets) Initial staging to exlcude ANTISQUEAK FILLER metastases TECHNIQUE: MRI of the brain was [...] ho have questions please contact the health college and career counselor that requested your imaging first. Electronically signed by: Freddy Varghese [facility] ([phone]), at 12/06/2021 10:41 AM Jem Gannon MD IMG MRI ORDERABLES CT [...] who have questions please contact the health college and career counselor that requested your imaging first. ? Electronically signed by: Ollie rivas MD, [facility] ([phone]), at 12/06/2021 8:33 AM Narrative 12/06/2021 8:33 AM EDT EXAMINATION: CT [...] ho have questions please contact the health college and career counselor that requested your imaging first. 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
--- OUTSIDE RECORDS SUMMARY | 2022-02-18 10:39 | XMS_ITS | Encounter Summary ---
:1955 Author Organization [facility] [place] [address] Care Team Providers Name Role Phone Chioma Huynh Primary Care Provider Encounter Details Date Type Department Care Team Description 11/01/2021 Telephone Hematology and Oncology at Francisco Rausch MD [facility] Rosa Elena barraza HEMATOLOGY/[place] [address] [place] [address] [phone] (Wo rk) Social History Tobacco Use Types [...] this encounter Miscellaneous Notes Telephone Encounter - Francisco Rausch MD - 11/01/2021 8:52 PM EDT Reason for call: Diffuse metastatic disease Codey Lucio is a 66 y.o. male presented with abdominal pain. Labs showed lipase 200, amylase 300. CT abdomen and pelvis showed cystic pancreatic lesion, multiple hepatic mets with hepatic enlargement, LAD. VSS stable. Dr. Thacker is calling to request oncology referral. Recommendations: Patient have metastatic disease most likely GI origin. I suspect pancreatic malignancy. Patient needs expedited work up. Recommended tumor markers CA19-9, CEA, AFP. Also needs CT guided biopsy of the accessible lesion. I requested Dr. Thacker to place referral and try to arrange the biopsy. I will tentatively send a message to new patient coordinator for GI onc appointment. Francisco Rausch MD, MS Hematology/Medical Oncology Fellow [facility] Page # [phone] 11/01/21, 9:18 PM documented in this encounter Plan of Treatment Upcoming Encounters Date Type Specialty Care Team Description 02/19/2022 Infusion Hematology and Oncology 02/20/2022 Infusion Hematology and Oncology documented as of this encounter Visit Diagnoses Not on filedocumented in this encounter Care Teams Senior Ui Ux Designer Relationship Specialty Start Date End Date Chioma Huynh PA PCP - General 04/10/[address] [place] [address] documented as of this encounter
--- OUTSIDE RECORDS SUMMARY | 2022-02-18 10:39 | XMS_ITS | Encounter Summary ---
:1955 Author Organization [facility] [place] [address] Care Team Providers Name Role Phone Chioma Huynh Primary Care Provider Encounter Details Date Type Department Care Team Description 03/08/2014 Abstract Vascular Surgery at [facility] Cl audication (Primary [facility], RN Dx) [place] [address] Social History Tobacco Use Types Packs/Day Years Used Date Never Assessed Financial Resource Strain Answer Date Recorded How [...] Oncology documented as of this encounter Results FLORENTINO, legs, multiple levels (03/23/2014 11:07 AM EST) Component Value Ref Test Analysis Performed At [facility] gist Range Method Time Signature VB Text [facility] Report Department: Vascular Surgery Lab Patient: [id number] (CODEY PATEL) CPT Code: 99876 ICD-9: 440.21 Referring Physician: LOGAN RICHARDSON Indication: ?? Right lower extremity claudication ICD9 Diagnosis Code: 440.21 Diabetes Mellitus: ??No Definitions: ?? FLORENTINO = Ankle / Brachial Systolic Pressure I ndex, TBI = Toe / Brachial Systolic Pressure Index Findings: Right ?Pressure (mm Hg) ?? FLORENTINO ??Waveform ? Brachial Artery ?97 ? Common Femoral Artery ?Triphasic ? Pop Fossa ?Sn[place]omish-Biphasic ?? Dorsalis Pedis (Ankle) Arter y ?94 ?0.69 ??[place]ohom[place]- Biphasic ?? Posterior Tibial (Ankle) Art brittney ??100 ? 0.74 ??[place]ish-Biphasic ?? Left ? Pressure (mm Hg) ?? FLORENTINO ??Waveform ?? Brachial Artery ?136 ? Common Femoral Artery ?Triphasic ?? Pop Fossa ?Triphasic ?? Dorsalis Pedis (Ankle) Arter y ?135 ? 0.99 ??Triphasic ?? Posterior Tibial (Ankle) Artery ??145 ? 1.07 ??Triphasic ?? Interpretation: RIGHT: Mild to moderate lower extremity arterial occlusive disease. Doppler waveforms suggest femoral (SFA) disease. LEFT: No significant lower extremity arterial oc clusive disease identified at rest. Comment: Significant brachial artery pressure gr adient between right and left arm. Electronically Signed by: TIFFANY TOLBERT on 2014-03-23 11:39:3 4 AM VB Text End of Report [facility] Report Specimen (Source) Anatomical Collection Method Collection Time Re ceived Time Location / / Volume Laterality 03/23/2014 11:07 AM EST Logan Richardson MD VASCULAR ORDERABLES Performing Organization Address City/State/ZIP Code Phon e Number [facility] documented in this encounter Visit Diagnoses Diagnosis Claudication - Primary Peripheral vascular disease, unspecified documented in this encounter Care Teams Log Feeder Relationship Specialty Start Date End Date Chioma Huynh PA PCP - General 04/10/[address] [place] [address] documented as of this encounter
--- OUTSIDE RECORDS SUMMARY | 2022-02-18 10:39 | XMS_ITS | Encounter Summary ---
:1955 Author Organization [facility] [place] [address] Care Team Providers Name Role Phone Chioma Huynh Primary Care Provider Reason for Visit Reason Onset Date Comments Other 12/12/2021 Palliative Care Refe rral Encounter Details Date Type Department Care Team Description 12/12/2021 Telephone Hematology Oncology at [place], Juan (Palliative Care [facility] apricot packer) [address] [place] [phone] Social History Tobacco Use Types Packs/Day [...] Telephone Encounter - Olivia White RN - 12/12/2021 9:31 AM EDT Palliative Care Referral, dimple, med and allergies, and MD note physically handed to [facility]. ----- Message from Jem Gannon MD sent at 12/11/2021 5:18 PM EDT ----- Thank you for scheduling him for the infusion on 12.17. Additionally can you please 1) Refer him to palliative care at [facility]-not urgent but would like it to occur in December 2) Schedule him for labs, appt and infusion C2D1-3 starting 8. Thx A documented in this encounter Plan of Treatment Upcoming Encounters Date Type Specialty Care Team Description 02/19/2022 Infusion Hematology and Oncology 02/20/2022 Infusion Hematology and Oncology documented as of this encounter Visit Diagnoses Not on filedocumented in this encounter Care Teams Retail Loan Originator Relationship Specialty Start Date End Date Chioma Huynh PA PCP - General 04/10/[address] [place] [phone] documented as of this encounter
--- OUTSIDE RECORDS SUMMARY | 2022-02-18 10:39 | XMS_ITS | Encounter Summary ---
:1955 Author Organization [facility] [place] [address] Care Team Providers Name Role Phone Chioma Huynh Primary Care Provider Encounter Details Date Type Department Care Team Description 11/20/2021 [place] [address] Social History Tobacco Use Types Packs/Day [...] by 0 07/31/2021 mouth 2 times daily. Trelegy Ellipta 200-62.5-25 0 11/17/19 22 [...] 0 02/09/2010 0 01/07/2022 ATORVASTATIN CALCIUM 0 02/09/2010/07/2021 (LIPITOR ORAL) documented as of this encounter Plan of Treatment Upcoming Encounters Date Type Specialty Care Team Description 02/19/2022 Infusion Hematology and Oncology 02/20/2022 Infusion Hematology and Oncology documented as of this encounter Procedures Procedure Name Priority Date/Time Associated Diagnosis Comme nts SURGICAL PATHOLOGY Routine 11/20/2021 11:15 AM Re sults for this REPORT EDT procedure are i n the results section. documented in this encounter Results Surgical Pathology Report (11/20/2021 11:15 AM EDT) Component Value Ref Test Analysis Performed At [facility] gist Range Method Time Signature Surgical [id number] ? Location: [facility] Pathology [place] Report The signing pathologist has (i) examined the relevant preparation(s) for the MEMORIAL specimen(s) and (ii) rendered or confirmed the diagnosis(es) . HOSPITAL LABORATORY . 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 See discussi on #1. Electronically signed by: ?Scarlet ROWE PhD, Neeraj De Los Santos Verified: ??11/26/2021 9:47 ?? Pathologist Performed at: ??-[facility] Dept. of Pathology, [place], [place] DISCUSSION 1. Immunohistochemical stain s support [...] SUBMITTED A - Liver Biopsy Referring Identifier: ??[id number] CLINICAL INFORMATION Liver mass SPECIMEN PROCESSING A [...] Organization Address City/State/[place] [address] documented in this encounter Visit Diagnoses Not on filedocumented in this encounter Care Teams Molding Fitter Relationship Specialty Start Date End Date Chioma Huynh PA PCP - General 04/10/[address] [place] [address] documented as of this encounter
--- OUTSIDE RECORDS SUMMARY | 2022-02-18 10:39 | XMS_ITS | Encounter Summary ---
:1955 Author Organization [facility] [place] [address] Care Team Providers Name Role Phone Chioma Huynh Primary Care Provider Reason for Referral Diagnostic Test (Routine) - New Request Specialty Diagnoses / Procedures Referred By Contact Refer red To Contact Radiology Diagnoses Primary malignant neoplasm of right upper lobe of lung Brain metastases Jem Gannon MD Procedures CT Chest w Contrast [facility] HEMATOLOGY/[place] [address] Referral ID Status Reason Start Expiration Visits Visits Date Date Requested Authorized [id number] New Request Specialty 01/07/2022 07/10/2023 1 1 Service Requested Diagnostic Test (Routine) - New Request Specialty Diagnoses / Procedures Referred By Contact Refer red To Contact Radiology Diagnoses Primary malignant neoplasm of right upper lobe of lung Brain metastases Jem Gannon MD Procedures MRI Brain wwo Contrast (Generic) [facility] HEMATOLOGY/[place] [address] Referral ID Status Reason Start Expiration Visits Visits Date Date Requested Authorized [id number] New Request Specialty 01/07/2022 07/10/2023 1 1 Service Requested Encounter Details Date Type Department Care Team Description 01/07/2022 Office Visit Hematology/Oncology Filomena Gannon MD [facility] HEMATOLOGY/[place] [address] Primary malignant neoplasm of right uppe r lobe of lung; at [facility] Chiara Taylor APRN [facility] HEMATOLOGY [place] [address] Brain metastases; [address] [place] [address] Social History Tobacco Use Types [...] Sign Reading Time Taken Comments Blood Pressure 109/60 01/07/2022 11:12 AM EDT Pulse 69 01/07/2022 11:12 AM EDT Temperature 36.3 ??C (97.3 ??F) 01/07/2022 11:12 AM EDT Respiratory Rate 20 01/07/2022 11:12 AM EDT Oxygen Saturation 99% 01/07/2022 11:12 AM EDT Inhaled Oxygen Concentration - - Weight 53.2 kg (117 lb 3.2 oz) 01/07/2022 11:12 AM EDT Height 172 cm (5' 7.72) 01/07/2022 11:12 AM EDT Body Mass Index 17.97 01/07/2022 11:12 AM EDT documented in this encounter Progress Notes Jem Gannon MD - 01/07/2022 11:00 AM EDT Images from the original note were not included. Thoracic Oncology [facility] [place], [place] [id number] [phone] Codey Lucio is being seen for the [...] on 12.17.21 with carboplatin etoposide and atezolizumab. Overall seems to be tolerating treatment relatively well and actually seems to be clinically responding with reduction in his hepatomegaly and improved pain and reduction in the tempo of his weight loss Plan: Labs and toxicities assessed and acceptable for ongoing treatment. -Proceed with next cycle of carboplatin etoposide and atezolizumab. We will use again 80% doses. -Restage with both brain MRI and CT scan of the chest in 2 weeks -Continue long-acting MS SR 30 mg twice daily with breakthrough oxycodone. He is also been referred to palliative care and has an appointment at [facility] -Previously gave them a PR Advance Care Planning packet Jem Gannon MD, MS 01/07/2022 Thoracic Oncology [facility] There are no Patient Instructions on file for this visit. CC: KURT Murray HPI/Interval History/Subjective: Had some nausea that was releived by antiemetics. Just need a lot and had to get refill of the compazine. Having some headaches with pressure on the front. These are similar but not indentical to his chronic headaches No fevers Thinks his weight is stable. Gained weight after the first cycle but no edema Still limited appetite but really feels weight hs plateaued. Breathing is ok. Can do the 4 stepseasily. Bowels are ok T Pain is better controlled. Taking the MSSR BID. 1-2 oxycodone during the day as breakthrough Balance seems ok. No further falls Overall his feels that he is improving. He tends not to complain Social History/Support Network: Home situation: . Has two daughters from a prior marriage [facility]. Lives [address] from [employer], Employment: [employer]. Feels very poorly Tobacco use: Smoking < [...] mass 2.8 x 4 x 3.[address] guided liver biopsy at Weeks 7.8 [...] Prominent precardiac lymph node concerning for metastasis. 12.06 MRI Brain IMPRESSION Numerous enhancing metastases within [...] Data: NA Treatment Course: 12.17.21 C1 Carboplatin/Etoposide/Atezolizumab ONCBCN ONCOLOGY (AMB) 12/17/2021 12/18/2021 12/19/2021 Day, Cycle Day 1, Cycle 1 Day 2, Cycle 1 Day 3, Cycle 1 atezolizumab (Tecentriq) IV 1,200 mg - - CARBOplatin (Paraplatin) IV 350 mg - - etoposide 20 mg/mL (Vepesid) IV 80 mg/m2/dose = 126.5 mg 80 mg/m2/dose = 126.5 mg 80 mg/m2/dose = 126.5 mg Patient Active Problem List Diagnosis Date Noted [...] Allergies Allergen Reactions ??? Codeine Phosphate Medications 01/07/22 1121 Medication Sig Taking? cholecalciferol, vitamin D3, (VITAMIN D3 ORAL) Take 2,500 mcg by mouth daily. Yes cyanocobalamin, Vitamin B-12, 1,000 mcg/mL Solution Inject 1,000 mcg as directed every 30 days. Yes Xarelto 2.5 mg Tablet Take 2.5 mg by mouth 2 times daily. Yes lisinopriL (Zestril) 40 mg Tablet Take 40 mg by mouth daily. Yes Trelegy Ellipta 200-62.5-25 mcg Yes prochlorperazine (Compazine) 10 mg Tablet Take 1 tablet by mouth every 6 hours as needed for Nausea.Yes morphine CR (Ms Contin) 30 mg Tablet Sustained Release Take 1 tablet by mouth 2 times daily. Yes oxyCODONE (Roxicodone) 5 mg Tablet Take 1 tablet by mouth every 6 hours as needed for Pain. Yes nicotine (Nicoderm CQ) 21 mg/24 hr Patch 24 hr Change 1 patch on the skin daily. Yes citalopram (CELEXA) 20 mg Tablet Take 20 mg by mouth daily. Yes metoprolol tartrate (LOPRESSOR) 25 mg tablet Yes ATORVASTATIN CALCIUM (LIPITOR ORAL) Yes albuterol (VENTOLIN HFA) 90 mcg/Actuation inhaler I reviewed the problem list, allergies, medications, past medical history, social history and familyhistory within the EPIC encounter. Pertinent details are noted above. Pertinent positives and negative from the Review of Systems are as summarized above in the HPI. Physical Exam: Wt Readings from Last 3 Encounters: 01/07/22 53.2 kg (117 lb 3.2 oz) 12/19/21 57.8 kg (127 lb 6.4 oz) 12/18/21 54.4 kg (120 lb) Temp Readings from Last 3 Encounters: 01/07/22 36.3 ??C (97.3 ??F) (Temporal) 12/19/21 36.2 ??C (97.2 ??F) (Temporal) 12/18/21 36.6 ??C (97.8 ??F) (Temporal) BP Readings from Last 3 Encounters: 01/07/22 109/60 12/19/21 144/51 12/18/21 113/56 Pulse Readings from Last 3 Encounters: 01/07/22 69 12/19/21 51 12/18/21 56 Body surface area is 1.59 meters squared. Wt Readings from Last 3 Encounters: 01/07/22 53.2 kg (117 lb 3.2 oz) 12/19/21 57.8 kg (127 lb 6.4 oz) 12/18/21 54.4 kg (120 lb) KPS Score ECOG Grade Definition 90-100 [...] Thought content normal. Review of Laboratory Data: 01.07.22 White blood cell count 3.74 hemoglobin 11.7 platelet count 239,000 absolute neutrophil count 2.28 Sodium 136 potassium 2.8 chloride 96 BUN 13 creatinine 0.8 glucose 154 calcium 8.8 magnesium 2.1 total bilirubin 0.7 AST 48 ALT 45 albumin 3.2 TSH 1.09 Free T4 slightly elevated at 1.91 Review of Imaging Data: I personally reviewed [...] Type Priority Associated Diagnoses Order S chedule Comprehensive metabolic Lab STAT Primary malignant Expected: 01/09/2022 panel (non-fasting) neoplasm of right (Ap proximate), upper lobe of lung Expires: 07/11/2022 MRI Brain wwo Contrast Imaging Routine Primary malignant Expected: 01/21/2022 (Generic) neoplasm of right (Approxima te), upper lobe of noreen ng Expires: 01/07/[address] Chest w Contrast Imaging Routine Primary malignant Exp ected: 01/21/2022 neoplasm of right (Approxima te), upper lobe of noreen ng Expires: 01/07/2023 Brain metastases documented as of this encounter Visit Diagnoses Diagnosis Primary malignant neoplasm of right uppe r lobe of lung Malignant neoplasm of upper lobe, bronch us or lung Brain metastases 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
--- OUTSIDE RECORDS SUMMARY | 2022-02-18 10:39 | XMS_ITS | Encounter Summary ---
:1955 Author Organization [facility] [place] [address] Care Team Providers Name Role Phone Chioma Huynh Primary Care Provider Encounter Details Date Type Department Care Team Description 12/14/2021 Orders Only Hematology and Oncology at Jem Gannon MD [facility] Rosa Elena barraza HEMATOLOGY/[place] [address] [place] [address] [phone] (Wo rk) Social History Tobacco Use Types [...] on filedocumented in this encounter Care Teams Single Needle Operator Relationship Specialty Start Date End Date Chioma Huynh PA PCP - General 04/10/[address] [place] [id number] documented as of this encounter
--- OUTSIDE RECORDS SUMMARY | 2022-02-18 10:39 | XMS_ITS | Encounter Summary ---
:1955 Author Organization [facility] [place] [address] Care Team Providers Name Role Phone Chioma Huynh Primary Care Provider Encounter Details Date Type Department Care Team Description 03/23/2014 Ancillary Appointment Vascular Surgery at [place], Zulema Cannon, [place] [id number] Social History Tobacco Use Types Packs/Day Years [...] Name Priority Date/Time Associated Diagnosis Comme nts FLORENTINO, LEGS, MULTIPLE Routine 03/23/2014 11:07 Claudication Resu lts for this LEVELS AM EST procedure are i n the results section. documented in this encounter Results FLORENTINO, legs, multiple levels (03/23/2014 11:07 AM EST) Component Value Ref Test Analysis Performed At [facility] Pulmocide Range Method Time Signature VB Text VASCUBASE Report Department: Vascular Surgery Lab Patient: [id number] (CODEY PATEL) CPT Code: 24446 ICD-9: 440.21 Referring Physician: LOGAN RICHARDSON Indication: ?? Right lower extremity claudication ICD9 Diagnosis Code: 440.21 Diabetes Mellitus: ??No Definitions: ?? FLORENTINO = Ankle / Brachial Systolic Pressure I ndex, TBI = Toe / Brachial Systolic Pressure Index Findings: Right ?Pressure (mm Hg) ?? FLORENTINO ??Waveform ? Brachial Artery ?97 ? Common Femoral Artery ?Triphasic ? Pop Fossa ?[place]-Biphasic ?? Dorsalis Pedis (Ankle) Arter y ?94 ?0.69 ??[place]- Biphasic ?? Posterior Tibial (Ankle) Art brittney ??100 ? 0.74 ??[place]-Biphasic ?? Left ? Pressure (mm Hg) ?? [...] in this encounter Visit Diagnoses Diagnosis Claudication Peripheral vascular disease, unspecified documented in this encounter Care Teams Certified Family Mediator Relationship Specialty Start Date End Date Chioma Huynh PA PCP - General 04/10/[address] [place] [address] documented as of this encounter
== END 2022-02-18 10:34 | disposition home or self-care (01) ==
LOC: LBO 10:36
PROVIDERS: PCP Physician Assistant Medical; Visit Provider Internal Medicine Medical Oncology
DX: C34.11 Malignant neoplasm of upper lobe, right bronchus or lung (principal); Z79.899 Other long term (current) drug therapy; C79.31 Secondary malignant neoplasm of brain; C78.7 Secondary malignant neoplasm of liver and intrahepatic bile duct
CPT/HCPCS: 36415; 80053; 83735; 84439; 84443; 85025

== ENCOUNTER 2022-04-01 04:05 | Outpatient (CLI) | payer MEDICARE, SELFPAY ==
[2022-04-01 07:47] LABS: Abs Immature Grans 0.01 10^3/uL (0.0-0.06); Absolute Basophil Count 0.05 10^3/uL (0.0-0.2); Absolute Eosinophil Count 0.15 10^3/uL (0.0-0.7); Absolute Lymphocyte Count 0.74 10^3/uL (1.2-3.4); Basophils % 1.1; Eosinophils % 3.2; HGB 11.7 g/dL (13.5-17.5); Immature Grans % 0.2; Lymphocytes % 15.9; MCHC 32.5 % (32.0-36.0); MCV 98 fL (80-95); MPV 11.5 fL (8.0-11.0); Monocytes % 8.6; Platelet Count 175 10^3/uL (130-400); RBC 3.66 10^6/uL (4.36-5.78); RDW 15.8 % (11.8-14.1); RDW-SD 57.6 fL; WBC 4.65 10^3/uL (4.4-10.8)
[2022-04-01 08:15] LABS: ALT 26 U/L (16-63); AST 31 U/L (15-37); Albumin 3.5 g/dL (3.4-5.0); Alkaline Phosphatase 120 U/L (46-116); Anion Gap 5.2 mmol/L (3-11); BUN 18 mg/dL (7-18); Bilirubin, Total 0.4 mg/dL (0.2-1.0); CO2 34.8 mmol/L (21.0-32.0); CREATININE 0.8 mg/dL (0.70-1.30); Calcium 9.3 mg/dL (8.5-10.1); Chloride 102 mmol/L (98-107); FREE T4 1.35 ng/dL (0.76-1.46); Glucose 148 mg/dL (74-106); Magnesium 2.1 mg/dL (1.8-2.4); Potassium 3.4 mmol/L (3.5-5.1); Sodium 142 mmol/L (136-145); TSH 0.39 uIU/mL (0.36-3.74); Total Protein 7.1 g/dL (6.4-8.2)
== END 2022-04-01 04:06 | disposition home or self-care (01) ==
LOC: LBO 04:05
PROVIDERS: PCP Physician Assistant Medical; Visit Provider Internal Medicine Medical Oncology
DX: Z79.899 Other long term (current) drug therapy (principal); C78.7 Secondary malignant neoplasm of liver and intrahepatic bile duct
CPT/HCPCS: 36415; 80053; 83735; 84439; 84443; 85025

== ENCOUNTER 2022-04-29 03:17 | Outpatient (CLI) | payer MEDICARE, SELFPAY ==
[2022-04-29 08:08] LABS: Abs Immature Grans 0.01 10^3/uL (0.0-0.06); Absolute Basophil Count 0.06 10^3/uL (0.0-0.2); Absolute Eosinophil Count 0.19 10^3/uL (0.0-0.7); Absolute Lymphocyte Count 0.84 10^3/uL (1.2-3.4); Absolute Monocyte Count 0.34 10^3/uL (0.1-0.8); Absolute Neutrophil Count 3.33 10^3/uL (1.2-6.7); Basophils % 1.3; HCT 40.2 % (40.0-50.0); HGB 13.2 g/dL (13.5-17.5); Immature Grans % 0.2; Lymphocytes % 17.6; MCH 32.1 pg (27.0-33.0); MCHC 32.8 % (32.0-36.0); MCV 98 fL (80-95); MPV 11.5 fL (8.0-11.0); Monocytes % 7.1; Neutrophils % 69.8; Platelet Count 125 10^3/uL (130-400); RBC 4.11 10^6/uL (4.36-5.78); RDW 14.2 % (11.8-14.1); RDW-SD 51.7 fL; WBC 4.77 10^3/uL (4.4-10.8)
[2022-04-29 08:35] LABS: ALT 28 U/L (16-63); AST 34 U/L (15-37); Albumin 3.7 g/dL (3.4-5.0); Alkaline Phosphatase 131 U/L (46-116); Anion Gap 7.1 mmol/L (3-11); BUN 19 mg/dL (7-18); Bilirubin, Total 0.6 mg/dL (0.2-1.0); CO2 33.9 mmol/L (21.0-32.0); CREATININE 0.9 mg/dL (0.70-1.30); Calcium 9.6 mg/dL (8.5-10.1); Chloride 99 mmol/L (98-107); Estimated GFR 93.61 (mL/min/1.73m2); FREE T4 1.39 ng/dL (0.76-1.46); Glucose 139 mg/dL (74-106); Magnesium 2.3 mg/dL (1.8-2.4); Potassium 3.1 mmol/L (3.5-5.1); Sodium 140 mmol/L (136-145); TSH 0.33 uIU/mL (0.36-3.74); Total Protein 7.6 g/dL (6.4-8.2)
== END 2022-04-29 03:18 | disposition home or self-care (01) ==
LOC: LBO 03:17
PROVIDERS: PCP Physician Assistant Medical; Visit Provider Internal Medicine Medical Oncology
DX: C34.11 Malignant neoplasm of upper lobe, right bronchus or lung (principal); C78.7 Secondary malignant neoplasm of liver and intrahepatic bile duct; C79.31 Secondary malignant neoplasm of brain; Z79.899 Other long term (current) drug therapy
CPT/HCPCS: 36415; 80053; 83735; 84439; 84443; 85025

== ENCOUNTER 2022-05-27 03:23 | Outpatient (CLI) | payer MEDICARE, SELFPAY ==
[2022-05-27 09:22] LABS: Abs Immature Grans 0.01 10^3/uL (0.0-0.06); Absolute Basophil Count 0.04 10^3/uL (0.0-0.2); Absolute Eosinophil Count 0.06 10^3/uL (0.0-0.7); Absolute Lymphocyte Count 0.94 10^3/uL (1.2-3.4); Absolute Monocyte Count 0.42 10^3/uL (0.1-0.8); Absolute Neutrophil Count 3.99 10^3/uL (1.2-6.7); Basophils % 0.7; Eosinophils % 1.1; HCT 40.5 % (40.0-50.0); HGB 13.2 g/dL (13.5-17.5); Immature Grans % 0.2; Lymphocytes % 17.2; MCH 31.6 pg (27.0-33.0); MCHC 32.6 % (32.0-36.0); MCV 97 fL (80-95); MPV 11.5 fL (8.0-11.0); Monocytes % 7.7; Neutrophils % 73.1; Platelet Count 148 10^3/uL (130-400); RBC 4.18 10^6/uL (4.36-5.78); RDW 13.6 % (11.8-14.1); RDW-SD 48.3 fL; WBC 5.46 10^3/uL (4.4-10.8)
[2022-05-27 09:51] LABS: ALT 30 U/L (16-63); AST 52 U/L (15-37); Albumin 3.5 g/dL (3.4-5.0); Alkaline Phosphatase 149 U/L (46-116); Anion Gap 5.1 mmol/L (3-11); BUN 25 mg/dL (7-18); Bilirubin, Total 0.7 mg/dL (0.2-1.0); CO2 31.9 mmol/L (21.0-32.0); Calcium 9.8 mg/dL (8.5-10.1); Chloride 101 mmol/L (98-107); Estimated GFR 82.49 (mL/min/1.73m2); FREE T4 1.91 ng/dL (0.76-1.46); Glucose 126 mg/dL (74-106); Magnesium 2.4 mg/dL (1.8-2.4); Potassium 4.8 mmol/L (3.5-5.1); Sodium 138 mmol/L (136-145); TSH 0.85 uIU/mL (0.36-3.74); Total Protein 7.5 g/dL (6.4-8.2)
== END 2022-05-27 03:24 | disposition home or self-care (01) ==
PROVIDERS: Internal Medicine; PCP Physician Assistant Medical; Visit Provider Internal Medicine Medical Oncology
DX: Z79.899 Other long term (current) drug therapy (principal); C34.11 Malignant neoplasm of upper lobe, right bronchus or lung
CPT/HCPCS: 36415; 80053; 83735; 84439; 84443; 85025